=== PATIENT | female | born 1945 | race Hispanic/Latino ===

== ENCOUNTER → 2023-07-02 14:42 | Outpatient (REF) | payer MEDICARE, OTHER, SELFPAY | LOC: DHVS 14:42 | PROVIDERS: ATTENDING PHYSICIAN Physician Assistant; FAMILY PHYSICIAN Nurse Practitioner Adult Health | DX: I73.9 Peripheral vascular disease, unspecified (principal) | CPT/HCPCS: 93922; 93925 ==

== ENCOUNTER → 2023-12-24 09:52 | Outpatient (REF) | payer MEDICARE, OTHER, SELFPAY | LOC: RAD 09:52 | PROVIDERS: ATTENDING PHYSICIAN Surgery Vascular Surgery; FAMILY PHYSICIAN Nurse Practitioner Adult Health | DX: I73.9 Peripheral vascular disease, unspecified (principal) | CPT/HCPCS: 93922; 93925 ==

== ENCOUNTER → 2024-02-25 10:00 | Outpatient (REF) | payer MEDICARE, OTHER, SELFPAY | LOC: HWRAD 10:00 | PROVIDERS: ATTENDING PHYSICIAN Nurse Practitioner Family | DX: Z78.0 Asymptomatic menopausal state (principal) | CPT/HCPCS: 77080 ==

== ENCOUNTER → 2024-08-04 08:46 | Outpatient (REF) | payer MEDICARE, OTHER, SELFPAY | LOC: RAD 08:46 | PROVIDERS: ATTENDING PHYSICIAN Registered Nurse; FAMILY PHYSICIAN Nurse Practitioner Family | DX: I73.9 Peripheral vascular disease, unspecified (principal) | CPT/HCPCS: 93922; 93925 ==

== ENCOUNTER 2024-10-20 17:25 | Emergency (ER) | payer MEDICARE, OTHER, SELFPAY ==
[2024-10-20] VITALS (7 sets, daily range): BP systolic 140–224; BP diastolic 74–96; BMI 17.4
--- NOTE | 2024-10-20 18:39 | ED.GENMED ---
History of Present Illness
General
Chief Complaint: Abdominal Pain
Source: patient and family
Exam Limitations: none
Time Seen by Provider: 10/20/24 18:22
Nursing documentation reviewed up to this point in time: agreed with
History of Present Illness
History of Present Illness:
79-year-old female with a past medical history of mild dementia, hypertension, smoker who presents to the emergency room with her daughter for evaluation of abdominal pain; was referred to the ER for evaluation of abnormal CT. Patient reportedly
was out of town for a last week. On after eating some fried fish she began to complain of some abdominal pain and had some vomiting x 1 episode. She had some additional vomiting on Saturday x 2 episodes. She has complained of
continued abdominal pains since then and so when they returned home they took her to her primary care physician who ordered a CT scan. She had a CT scan today which apparently showed distended gallbladder as well as a fecal impaction that she was
sent to the ER to have further evaluation. Patient reports pain is in the epigastrium and radiates towards the left back. No clear triggering factor noted although it did apparently start after eating. No associated diarrhea; she has a history of
constipation per daughter. No fever noted. No urinary issues. No other acute complaints noted. She does have prior surgical history of appendectomy.
Past History
Past History
ED Past Medical History: HTN
ED Past Surgical History: None
Social History
Tobacco: Former smoker
Living: with family
Employment: Retired
Review of Systems
Review of Systems
All Other Systems: ROS reviewed and negative except as documented in HPI and ROS
Constitutional: Denies fever or chills
Respiratory: Denies trouble breathing
Cardiac: Denies chest pain
ABD/GI: Reports abdominal pain, nausea, vomiting and constipated; Denies diarrhea
: Denies dysuria, frequency or flank pain
Musculoskeletal: Denies neck pain
Neurological: Denies dizzy or headache
Phy Exam
Physical Exam
Physical Exam:
General: Awake, alert, mildly cachectic, not in acute distress
Head: Normocephalic, atraumatic
Eyes: Conjunctiva normal, sclera anicteric
Throat: Airway intact, handling secretions
Neck: Trachea midline, supple without meningismus
Lungs: Clear to auscultation bilaterally, no wheezing, rales, rhonchi
Heart: Regular rate and rhythm, no murmurs, gallops, or rubs appreciated
Abd: Soft, non distended, tender to palpation in the epigastrium; no tenderness in the right upper quadrant, negative Courtney sign
Back: No CVA tenderness
Neuro: No gross deficits
Skin: no rash in area of concern
Extremities: Warm well-perfused with no edema
Scores
Heart Failure Risk
Heart Failure Risk Score: Not Applicable
Heart Score for Chest Pain Patients
STEMI patient?: Not applicable
Withdrawal Assessment of Alcohol
Withdrawal Assessment Completed?: Not applicable
Course
Orders/Labs/Results
Orders:
Orders
10/20/24 18:24
US Abdomen Limited Urgent
Reason For Exam: abnormal CT; F/U GALLBLADDER, LUQ pain
10/20/24 18:35
Complete Blood Count/With Diff Urgent
10/20/24 18:46
0.9% Sodium Chloride 1000 ml [Nss] 1,000 ml IV BOLUS
10/20/24 19:19
Enema- Treatment ONCE
Type: Milk of Molasses
Morphine Sulfate 4 mg IV NOW STA
10/20/24 19:26
Comprehensive Metabolic Panel Urgent
Lipase Urgent
Abnormal Lab Results
10/20/24 10/20/24
18:35 19:26
WBC 14.5 H 10^3/uL
(4.8-10.8)
RBC 4.03 L 10^6/uL
(4.20-5.40)
Hgb 10.9 L g/dL
(12.0-16.0)
Hct 33.1 L %
(37.0-47.0)
MCHC 32.9 L g/dL
(33.0-37.0)
RDW 15.1 H %
(11.5-14.5)
Plt Count 681 H 10^3/uL
(130-400)
Absolute Neuts (auto) 10.5 H 10^3/uL
(1.4-6.5)
Absolute Monos (auto) 0.9 H 10^3/uL
(0.1-0.6)
Lymphocytes % 19.8 L %
(20.5-51.1)
Sodium 133 L mmol/L
(135-145)
Carbon Dioxide 21 L mmol/L
(22-30)
BUN 28 H mg/dl
(7-17)
Creatinine 1.1 H mg/dL
(0.6-1.0)
Glucose 109 H mg/dl
(70-99)
10/20/24 18:35
10/20/24 19:26
Vital Signs
Initial and Last Documented VS:
Initial Vital Signs
Temp Pulse Resp BP Pulse Ox
36.8 C 68 18 140/96 98
10/20/24 17:38 10/20/24 17:38 10/20/24 17:38 10/20/24 17:38 10/20/24 17:38
Last Documented Vital Signs
Temp Pulse Resp BP Pulse Ox
36.7 C 62 17 186/74 95
10/20/24 18:32 10/20/24 19:30 10/20/24 19:30 10/20/24 21:33 10/20/24 21:45
MDM/Problems Addressed
Differential Diagnosis Includes:
Cholecystitis, gastritis/PUD, constipation, pancreatitis
MDM/Problems Addressed:
79-year-old female presents for evaluation of abdominal pain with some nausea and vomiting as well as constipation�this has been ongoing since . Had an outpatient CT as well as lab work�reviewed labs which were done at 10 AM: She has a
leukocytosis with WBC 13.5. She has mild PRERNA with a creatinine of 1.4. Her LFTs are normal. CT report reviewed: Distended gallbladder which could be benign gallbladder hydrops but cannot exclude cholecystitis�recommended follow-up ultrasound.
She also has large amount of fecal material in the rectum concerning for fecal impaction. Will repeat labs to check trend. Check lipase. Provide some fluids. Check upper abdominal ultrasound. Enema for fecal impaction. Monitor closely reassess
after the above.
Repeat labs showed continued leukocytosis as well as elevated platelet count suspected might be some element of hemoconcentration especially given renal insufficiency noted on labs. Her creatinine is improving�patient was given fluids here. Her
abdominal ultrasound showed no signs of cholelithiasis or acute cholecystitis and certainly her exam seems inconsistent with cholecystitis as she has no tenderness in the right upper quadrant. Her tenderness is mostly left-sided and given stool
burden noted in the colon and rectum on CT I wonder if her symptoms are more likely related to fecal impaction and constipation. Enema is in progress and will reassess.
Patient did have bowel movement after enema. She reported some mild improvement still having some pain in the left lateral/upper abdomen. Minimally tender. Again, I suspect this could be constipation related although would also consider gastritis
or PUD. Low suspicion for surgical pathology based on exam and workup thus far. I had a long discussion with patient and daughter�offered admission for aggressive bowel regimen and continued monitoring but patient says she does not want stay in
the hospital. Plan to discharge on MiraLAX, advised bland diet, encourage p.o. intake. We spoke in detail about return precautions. Patient and daughter are comfortable with this. All questions answered.
*Radiology
Radiology exam reviewed: radiology read reviewed
*Pulse Oximetry
Patient hypoxic: no
*Critical Care Note
Total Time (30-74mins, 75-104mins- exclusive of procedures): Not Applicable
Data Reviewed
Review of Other/Old Records Reveals: Labs, Records and Radiology Studies
Source: patient and family
Patient Management
Social determinants of health affecting care: Strong social support
Escalation/DeEscalation of care consider admission/obs:
Offered admission but patient prefers to be discharged�shared decision making we will discharge with strict return precautions and outpatient PCP follow-up
ED Attending Note
-
Portions of this chart may have been created with voice recognition software.� Occasional wrong word or��sound alike� substitutions may have occurred due to the inherent limitations of voice recognition software.
Discharge Plan
Departure
Patient Disposition: Home (Routine Discharge)
Date of Disposition: 10/20/24
Time of Disposition: 22:08
Patient with high blood pressure during this ER visit?: Yes
Discharge Problem:
Abdominal pain, Fecal impaction, Constipation
Instructions: Constipation, Adult (DC), Abdominal Pain
Prescriptions:
New
polyethylene glycol 3350 [Miralax] 17 gram powder in packet
17 g PO BID Qty: 100 0RF
No Action
atorvastatin 80 MG tablet
80 mg PO QPM Qty: 30 0RF
clopidogrel 75 MG tablet
75 mg PO DAILY Qty: 30 0RF
aspirin 81 MG tablet,chewable
81 mg PO DAILY Qty: 30 0RF
sertraline 25 MG tablet
25 mg PO DAILY
metoprolol succinate 100 MG tablet extended release 24 hr
100 mg PO DAILY
amlodipine 2.5 MG tablet
2.5 mg PO DAILY
famotidine [Pepcid AC] 20 MG tablet
20 mg PO DAILY
Slow Fe
45 mg PO DAILY
docusate sodium [Stool Softener] 100 mg Capsule
100 mg PO MOWEFR
Referrals:
Nickolas Leonard MD [Family Provider, Family Practice] - Call in 1-3 days for appt
Activity Restrictions/Additional Instructions:
Thank you for visiting the Emergency Department at [facility].
1. Please schedule a follow up appointment as directed. Call first thing tomorrow morning to make an appointment.
2. If indicated, please take your medications as instructed and indicated on discharge paperwork.
3. If any of your symptoms do not improve, or persist, or become more severe within 6-12 hours, please return to the emergency department for further care.
4. Please return to the emergency department if you develop a headache, neck pain/stiffness, fever greater than 100.4F, chest pain, shortness of breath, persistent nausea, vomiting, slurred speech, difficulty walking, numbness/tingling, weakness,
signs of infection or any other symptoms that are worrisome to you.
Please call [phone] if you have any questions.
Interventions
Interventions:
*Risk Screen - Suicide Last Done: 10/20/24 17:38
*General Assessment Last Done: 10/20/24 18:33
*Neglect/Abuse Screening Last Done: 10/20/24 17:38
*ED- Fall Risk Assessment Last Done: 10/20/24 18:33
*ED COVID-19 Vaccine History Last Done: 10/20/24 18:33
NL-Qhbasp-Peemxatfub Assessment Last Done: 10/20/24 18:33
Discharge Date and Time
Print Language: CITIZEN OF [place]
[2024-10-20 19:04] LABS: % Basophils 0.4 % (0-2); % Eosinophils 1.1 % (0-6); % Immature Granulocytes 0.2 % (0-0.5); % Lymphocytes 19.8 % (20.5-51.1); % Monocytes 6.2 % (1.7-9.3); % Neutrophils 72.3 % (42.2-75.2); Absolute Basophils 0.1 10^3/uL (0-0.2); Absolute Eosinophils 0.2 10^3/uL (0-0.7); Absolute Lymphocytes 2.9 10^3/uL (1.2-3.4); Absolute Monocytes 0.9 10^3/uL (0.1-0.6); Absolute Neutrophils 10.5 10^3/uL (1.4-6.5); Hematocrit 33.1 % (37.0-47.0); Hemoglobin 10.9 g/dL (12.0-16.0); Mean Corp Hgb Conc. 32.9 g/dL (33.0-37.0); Mean Corpuscular Volume 82.1 fL (81.0-99.0); Nucleated Red Blood Cells % 0 %; Platelet Count 681 10^3/uL (130-400); Red Blood Cell Count 4.03 10^6/uL (4.20-5.40); Red Cell Dist. Width 15.1 % (11.5-14.5); White Blood Cell Count 14.5 10^3/uL (4.8-10.8)
[2024-10-20] MEDS: NSS 1000 IV (19:26)
[2024-10-20] MEDS: MORPHINE SULFATE 4 MG IV (19:28)
[2024-10-20 19:47] LABS: ALT (SGPT) 12 U/L (0-35); AST (SGOT) 19 U/L (14-36); Albumin 3.9 g/dl (3.5-5.0); Alkaline Phosphatase 70 U/L (38-126); Blood Urea Nitrogen 28 mg/dl (7-17); Calcium 9.5 mg/dl (8.4-10.2); Carbon Dioxide 21 mmol/L (22-30); Chloride 104 mmol/L (98-107); Estimated Creatinine Clearance 25 ml/min; Glucose 109 mg/dl (70-99); Lipase 180 U/L (23-300); Potassium 3.9 mmol/L (3.5-5.1); Sodium 133 mmol/L (135-145); Total Bilirubin 0.4 mg/dl (0.2-1.3); Total Protein 6.7 g/dl (6.3-8.2); eGFR 51.11
== END 2024-10-20 22:49 | disposition home or self-care (01) ==
LOC: EMR 17:25
PROVIDERS: EMERGENCY PHYSICIAN Emergency Medicine; FAMILY PHYSICIAN Family Medicine
DX: R10.9 Unspecified abdominal pain (principal); K56.41 Fecal impaction; N17.9 Acute kidney failure, unspecified; F03.A0 Unspecified dementia, mild, without behavioral disturbance, psychotic disturbance, mood disturbance, and anxiety; I10 Essential (primary) hypertension; Z87.891 Personal history of nicotine dependence; Z90.49 Acquired absence of other specified parts of digestive tract
CPT/HCPCS: 99284; 96374; 96361; 36415; 74177; 76705; 80053; 83690; 85025; 93005; Q9967

== ENCOUNTER 2024-10-22 20:11 | Inpatient (IN) | payer MEDICARE, OTHER, SELFPAY ==
[2024-10-22] VITALS (7 sets, daily range): BP systolic 107–134; BP diastolic 42–94; PULSE 58–75; BMI 17.1
--- NOTE | 2024-10-22 18:37 | ED.GENMED ---
History of Present Illness
General
Chief Complaint: Rectal Bleeding
Source: patient, records and family
Exam Limitations: none
Time Seen by Provider: 10/22/24 18:35
Nursing documentation reviewed up to this point in time: agreed with
History of Present Illness
History of Present Illness:
79-year-old female with history of mild dementia, HTN, smoker is here for heme positive stools from PCP office, low BP in the office, 2 lb wt loss past 2 days.
Hypotensive 70/s BP x 3 documented on office note 88/52, 76/40, 82/50
Evaluated here for abdominal pain 2 days ago, found to be constipated and given enemas with good results. DC'd on Miralax which daughter has been giving her daily. No BM since
Pt states pain is (points to epigastric area).
Past History
Past History
ED Past Medical History: HTN, Psychiatric (Depression) and Other (Mild dementia)
ED Past Surgical History: Appendectomy
Social History
Tobacco: Former smoker
Living: with family
Employment: Retired
Review of Systems
Review of Systems
Allergies reviewed?: Yes
All Other Systems: ROS reviewed and negative except as documented in HPI and ROS
Constitutional: Reports fatigue; Denies fever
Respiratory: Denies trouble breathing
Cardiac: Denies chest pain or syncope
ABD/GI: Reports abdominal pain, black stools and anorexia; Denies nausea, vomiting or diarrhea
: Denies dysuria
Musculoskeletal: Denies edema
Skin: Reports no symptoms
Neurological: Denies dizzy or headache
Phy Exam
Physical Exam
Physical Exam:
GENERAL: No acute distress. Elderly and frail
CONSTITUTIONAL: Afebrile.
EYES: clear, conjunctivae normal
ENMT: moist mucus membranes, Pharynx nl
RESPIRATORY: Regular respirations, nonlabored, lungs clear.
CARDIOVASCULAR: Regular rate and rhythm, no murmurs, no rubs.
GI: Soft, nontender, normal BS
MUSCULOSKELETAL: Moves with ease. Well perfused.
SKIN: Warm, dry, grayish tone
PSYCH: Normal mood and affect. Well kept, interactive and appropriate
NEUROLOGIC: Awake, alert and oriented. No focal neurological deficits
Course
Orders/Labs/Results
Orders:
Orders
10/22/24 18:37
Type And Crossmatch [Type+Screen] Urgent
Basic Metabolic Panel Urgent
Complete Blood Count/With Diff Urgent
10/22/24 18:50
IV Insert/Care/Rem.- Treatment PRN
Pantoprazole [Protonix IV] 80 mg IV NOW STA
10/22/24 19:06
0.9% Sodium Chloride 500 ml [Nss] 500 ml IV BOLUS
Abnormal Lab Results
10/22/24
18:37
WBC 15.1 H 10^3/uL
(4.8-10.8)
RBC 3.59 L 10^6/uL
(4.20-5.40)
Hgb 10.0 L g/dL
(12.0-16.0)
Hct 29.6 L %
(37.0-47.0)
RDW 15.3 H %
(11.5-14.5)
Plt Count 608 H 10^3/uL
(130-400)
Abs Immat Gran (auto) 0.1 H 10^3/uL
(0-0.05)
Absolute Neuts (auto) 10.9 H 10^3/uL
(1.4-6.5)
Absolute Monos (auto) 1.0 H 10^3/uL
(0.1-0.6)
Lymphocytes % 19.3 L %
(20.5-51.1)
Chloride 108 H mmol/L
(98-107)
Carbon Dioxide 19 L mmol/L
(22-30)
BUN 37 H mg/dl
(7-17)
Creatinine 1.4 H mg/dL
(0.6-1.0)
Glucose 119 H mg/dl
(70-99)
Calcium 10.6 H mg/dl
(8.4-10.2)
10/22/24 18:37
10/22/24 18:37
Vital Signs
Initial and Last Documented VS:
Initial Vital Signs
Temp Pulse Resp BP Pulse Ox
98.4 F 69 16 122/94 99
10/22/24 17:56 10/22/24 17:56 10/22/24 17:56 10/22/24 17:56 10/22/24 17:56
Last Documented Vital Signs
Temp Pulse Resp BP Pulse Ox
98.4 F 69 20 134/62 99
10/22/24 17:56 10/22/24 17:56 10/22/24 18:39 10/22/24 18:35 10/22/24 17:56
MDM/Problems Addressed
Differential Diagnosis Includes:
GI bleed
MDM/Problems Addressed:
79-year-old female with history of mild dementia, HTN, smoker is here for heme positive stools from PCP office, low BP in the office, 2 lb wt loss past 2 days.
Hypotensive 70/s BP x 3 documented on office note 88/52, 76/40, 82/50
Evaluated here for abdominal pain 2 days ago, found to be constipated and given enemas with good results. DC'd on Miralax which daughter has been giving her daily. No BM since
Pt states pain is (points to epigastric area).
Patient is in no significant discomfort. Do not suspect mesenteric ischemia. Abdomen is benign save for mild discomfort subxiphoid in the epigastric area.
Rectal exam reveals black stool hematest positive.
7:15 p.m.
Hemoglobin 10.0 down from 10.9 two days ago
WBC 15.1
Stable
Hospitalist notified of admission.
Chronic conditions affecting care: HTN
*Critical Care Note
Total Time (30-74mins, 75-104mins- exclusive of procedures): Not Applicable
ED Attending Note
-
Portions of this chart may have been created with voice recognition software.� Occasional wrong word or��sound alike� substitutions may have occurred due to the inherent limitations of voice recognition software.
Discharge Plan
Departure
Patient Disposition: Admit
Date of Disposition: 10/22/24
Time of Disposition: 18:55
Admit to: Med/Surg
Presentation/result/management discussed w/ accepting MD/DO: Hospitalist
Condition: Fair
Discharge Problem:
GI bleed
Prescriptions:
No Action
atorvastatin 80 MG tablet
80 mg PO QPM Qty: 30 0RF
clopidogrel 75 MG tablet
75 mg PO DAILY Qty: 30 0RF
aspirin 81 MG tablet,chewable
81 mg PO DAILY Qty: 30 0RF
sertraline 25 MG tablet
25 mg PO DAILY
metoprolol succinate 100 MG tablet extended release 24 hr
100 mg PO DAILY
amlodipine 2.5 MG tablet
2.5 mg PO DAILY
famotidine [Pepcid AC] 20 MG tablet
20 mg PO DAILY
Slow Fe
45 mg PO DAILY
docusate sodium [Stool Softener] 100 mg Capsule
100 mg PO MOWEFR
polyethylene glycol 3350 [Miralax] 17 gram powder in packet
17 g PO BID Qty: 100 0RF
Referrals:
Matty Corona PA-C [Family Provider]
Interventions
Interventions:
*Risk Screen - Suicide Last Done: 10/22/24 17:56
*General Assessment Last Done: 10/22/24 17:56
*Neglect/Abuse Screening Last Done: 10/22/24 17:56
SE-Kfmlhx-Upbopqruue Assessment Last Done: 10/22/24 18:39
ED- Cardiac Assessment Last Done: 10/22/24 18:39
ED- Pulmonary Assessment Last Done: 10/22/24 18:39
Discharge Date and Time
Print Language: [place]
[2024-10-22 18:54] LABS: % Basophils 0.4 % (0-2); % Eosinophils 1.4 % (0-6); % Immature Granulocytes 0.4 % (0-0.5); % Lymphocytes 19.3 % (20.5-51.1); % Monocytes 6.4 % (1.7-9.3); % Neutrophils 72.1 % (42.2-75.2); Absolute Basophils 0.1 10^3/uL (0-0.2); Absolute Eosinophils 0.2 10^3/uL (0-0.7); Absolute Immature Granulocytes 0.1 10^3/uL (0-0.05); Absolute Lymphocytes 2.9 10^3/uL (1.2-3.4); Absolute Neutrophils 10.9 10^3/uL (1.4-6.5); Hematocrit 29.6 % (37.0-47.0); Mean Corp Hgb Conc. 33.8 g/dL (33.0-37.0); Mean Corpuscular Hgb 27.9 pg (27.0-31.0); Mean Corpuscular Volume 82.5 fL (81.0-99.0); Mean Platelet Volume 9.9 fL (7.4-10.4); Nucleated Red Blood Cells % 0 %; Platelet Count 608 10^3/uL (130-400); Red Blood Cell Count 3.59 10^6/uL (4.20-5.40); Red Cell Dist. Width 15.3 % (11.5-14.5); White Blood Cell Count 15.1 10^3/uL (4.8-10.8)
[2024-10-22 19:07] LABS: Blood Urea Nitrogen 37 mg/dl (7-17); Calcium 10.6 mg/dl (8.4-10.2); Carbon Dioxide 19 mmol/L (22-30); Chloride 108 mmol/L (98-107); Glucose 119 mg/dl (70-99); Sodium 137 mmol/L (135-145); eGFR 38.27
--- NOTE | 2024-10-22 19:18 | HPS.HSE ---
Family Physician
-
Family Physician: WALLY ENRIQUEZ PA-C
Chief Complaint
-
epigastric pain
History of Present Illness
79-year-old female with history of mild dementia, HTN, smoker, CVA presented to us with epigastric pain since Saturday. She vomited once on Saturday. She has not been eating or drinking for the past few days. Patient was evaluated here on Saturday.
CT obtained and was noted to be in constipation. Patient was sent home on MiraLAX. She had a small BM the following day. No bowel movement since then. Due to the persistent epigastric pain, which is more towards her left side she was evaluated
by PCP today. she lost 2lbs in two days. Her stool was heme positive at PCP office. Patient denied any fever, chills, chest pain, short of breath. Patient denied headache, dizzy or syncope patient denied abdominal pain, nausea, vomiting or
diarrhea. Patient denied dysuria hematuria.
Rectal exam reveals black stool heme test positive. Patient received a dose of Protonix, normal saline in the ER. Admitted for further management
Medical History
Past Medical History
Past Medical History: Reports Other
Additional Past Medical History:
Peripheral artery disease
CVA
Depression
Past Surgical History: Reports Other
Additional Past Surgical History:
Appendectomy
Cataract
Social History
Tobacco: Smoker (1 cigarettes daily)
Alcohol: None
Drug: None
Living: With Family
Family History
Family History: Not pertinent
Allergies / Home Medications
Allergies reflects when Allergies were last updated in [facility].
Home Medications with original date entered in [facility]
Allergy/Medication List:
Allergies
Allergy/AdvReac Type Severity Reaction Status Date / Time
No Known Allergies Allergy Verified 10/22/24 17:59
Home Medications
aspirin 81 mg chewable tablet 81 mg PO DAILY ##30 08/31/18
atorvastatin 80 mg tablet 80 mg PO QPM ##30 08/31/18
clopidogrel 75 mg tablet 75 mg PO DAILY ##30 08/31/18
sertraline 25 mg tablet 25 mg PO DAILY 12/02/18
Slow Fe 45 mg PO DAILY 05/27/19
amlodipine 2.5 mg tablet 2.5 mg PO DAILY 05/27/19
famotidine 20 mg tablet (Pepcid AC) 20 mg PO DAILY 05/27/19
metoprolol succinate 100 mg tablet,extended release 24 hr 100 mg PO DAILY 05/27/19
docusate sodium 100 mg capsule (Stool Softener) 100 mg PO MOWEFR 12/28/22
polyethylene glycol 3350 17 gram oral powder packet (Miralax) 17 g PO BID #100 ea 10/20/24
Review of Systems
-
Constitutional: Reports No Symptoms
EENT: Reports No Symptoms
Respiratory: Reports No Symptoms
Cardiac: Reports No Symptoms
Abdomen/GI: Reports Abdominal Pain (Epigastric), Nausea and Vomiting
: Reports No Symptoms
Musculoskeletal: Reports No Symptoms
Skin: Reports No Symptoms
Neurological: Reports No Symptoms
Endocrine: Reports No Symptoms
Hematologic/Lymphatic: Reports No Symptoms
Psych: Reports No Symptoms
Physical Exam
Vital Signs
Vital Signs
Temp Pulse Resp BP Pulse Ox
98.4 F 69 20 134/62 99
10/22/24 17:56 10/22/24 17:56 10/22/24 18:39 10/22/24 18:35 10/22/24 17:56
Physical Exam
General: Well Developed, Well Nourished and No Apparent Distress
HEENT: NormoCephalic, Moist mucous membranes and Atraumatic
Respiratory: Clear
Cardiac: S1/S2 and Regular Rhythm; No Murmur or Rub
GI: Soft, Non Distended, Normal Bowel Sounds and Tender; No Organomegaly
Rectal: Deferred by Provider
Musculoskeletal: No Clubbing, No Cyanosis and No Edema
Skin: No Rash
Neuro: AO x 3 and Nonfocal/grossly intact
Psych: Calm
Laboratory Results
-
10/22/24 18:37
10/22/24 18:37
Laboratory Results
Total Bilirubin Cancelled 10/22/24 18:37
AST Cancelled 10/22/24 18:37
ALT Cancelled 10/22/24 18:37
Alkaline Phosphatase Cancelled 10/22/24 18:37
Data Reviewed
-
CT Scan: Report Reviewed by me
Ultrasound: Report Reviewed by me
Lab Data: Labs Reviewed by me
Impression/Plan
-
# GI bleed
# Anemia of chronic disease
- Hemoglobin 10.0
- Continue to trend hemoglobin
- Transfuse if hemoglobin less than 7
- Keep patient n.p.o.
- Fluids continued for hydration
- GI consulted
- CT abdomen pelvis with impression of Distended gallbladder. This may be benign gallbladder hydrops. Acute cholecystitis cannot be excluded. This would better be evaluated by abdominal ultrasoundLarge amount of fecal material in the region of
rectum concerning for fecal impaction.Diverticulosis.Numerous bilateral renal cysts suggesting polycystic kidney disease. Stable.Air in the uterus. Stable. Etiology unknown but likely insignificant considering the long-term stability.
-abdomen US with No sonographic evidence for cholelithiasis or acute cholecystitis.
# Leukocytosis likely stress reaction
- WBCs 15.1, patient is afebrile
- Continue to monitor
# Chronic thrombocytosis
- Platelets 608
- Continue to monitor
# Acute kidney injury likely dehydration
- Creatinine 1.4
- Normal saline continued
- BMP in a.m.
# History of CVA
- Hold Plavix and aspirin
# GERD
- IV PPI
# Depression
- Sertraline continue
# Hyperlipidemia
- Statin continued
# Essential hypertension
- Metoprolol continued
- Norvasc continue
# DVT prophylaxis
- SCD
#CODE STATUS
- Full code
#
[2024-10-22] MEDS: NSS 500 IV (19:28)
[2024-10-22] MEDS: PROTONIX IV 80 MG IV (19:28)
--- NOTE | 2024-10-22 20:16 | W.PN.UPDATE ---
Update Note
Progress Note Update
Patient seen in conjunction with [employer]. I agree depends on surgical. I concur with the assessment plan unless stated otherwise.
This is a 79-year-old female with past medical history of CVA on dual antiplatelet therapy, hypertension and hyperlipidemia presenting to the emergency department from clinic with concern for GI bleed.
Per patient she was seen in the emergency department a few days ago with epigastric discomfort radiating to the left upper quadrant. At the time she was diagnosed with constipation and started on laxatives. CT scan was unremarkable. Labs were
stable at that time. Patient has been unable to tolerate any oral intake since onset of epigastric discomfort. She is not aware of any melena or hematochezia. Because she has not been having bowel movements. She did have bowel movements status
post laxative use but for only a small amount and was nonbloody. Patient self denies history of past GI bleed. She is not taking any additional NSAIDs. She is not on any blood thinners. She denies feeling dizzy or lightheaded. Was seen in PMD
clinic today and a rectal exam shows Hemoccult positive rectal
Arrival emergency department she was hemodynamic stable with a blood pressure of 134/60 and pulse of 65 satting 96% on room air.
Hemoglobin was 10 which is similar to prior, platelets normal. Electrolytes BUN/creatinine fairly stable.
She is well-appearing on exam nontoxic with epigastric tenderness to palpation.
Assessment and plan
Suspect dyspepsia versus peptic ulcer disease versus gastritis.
- Admit to telemetry
- N.p.o. for now
- PPI IV twice daily
- Type and screen, trend H&H every 8
- Orthostatic vital signs
- Holding aspirin Plavix
- Continue antihypertensives as tolerated
- Maintenance fluids
- GI consultation
DVT prophylaxis SCDs
CODE STATUS�full code
--- NOTE | 2024-10-22 21:08 | PTCARENOTE ---
Pt oriented to room and call maria. Pt oriented to room and call maria.
[2024-10-22] MEDS: NSS 1000 IV (21:52)
[2024-10-22] MEDS: MORPHINE SULFATE 2 MG IV (22:21)
--- NOTE | 2024-10-22 22:36 | VATNOTE ---
NOTED ORDER FOR TWO LARGE BORE IVS. PT CURRENTLY STABLE AND REQUIRES ONLY I IV ACCESS AT THIS TIME.
[2024-10-23] VITALS (47 sets, daily range): BP systolic 62–185; BP diastolic 41–96; PULSE 60–87; BMI 17.1
[2024-10-23 00:24] LABS: Hematocrit 21.2 % (37.0-47.0); Hemoglobin 7.2 g/dL (12.0-16.0)
[2024-10-23 00:26] LABS: ALT (SGPT) < 10 U/L (0-35); AST (SGOT) 14 U/L (14-36); Albumin 2.7 g/dl (3.5-5.0); Alkaline Phosphatase 50 U/L (38-126); Direct Bilirubin 0.2 mg/dl (0.0-0.4); Lipase 202 U/L (23-300); Total Bilirubin 0.2 mg/dl (0.2-1.3); Total Protein 4.9 g/dl (6.3-8.2)
--- NOTE | 2024-10-23 00:42 | PTCARENOTE ---
Lab notified this RN that pt's Hgb 7.2, down from 10.0 at 1837. Etienne JACKSON made aware.
--- NOTE | 2024-10-23 06:59 | CON.GI ---
Addendum entered and electronically signed by Shruthi Steve MD 10/23/24 17:22:
I saw and examined the patient.
The API DEVELOPER or PA's note was reviewed and I agree with the note.
Comment: 79-year-old Tanzanian-speaking female with history of peripheral artery disease on Plavix, previous 2 pack smoker and now 1 cigarette today, history of CVA brought in by her daughter for epigastric pain since last week and black stool that
was noted at PCPs office. She was in the emergency room a few days ago for vomiting and epigastric pain, mild leukocytosis noted, CT scan of the abdomen pelvis showed distended gallbladder, also large amount of fecal material noted in the rectum.
She was given an enema, abdominal ultrasound showed normal bowel bladder and she was discharged home. She did take MiraLAX without much bowel movements at home.
Hemoglobin 10/20/2024 was 10.9, today it was noted to be 6.3 with black stool. BUN was also elevated at 44.
Currently reports discomfort in the upper abdomen, no nausea or vomiting. She does have history of anemia, takes iron 3 times a week with Colace. Also was taking H2 [place]. No NSAID use. No significant constipation on iron. No previous
endoscopy or colonoscopy.
- melena, currently hemodynamically stable
Upper endoscopy done today, initially under MAC, then changed to general anesthesia after large amounts of blood noted in the stomach.
About 1 L of blood clots removed.
Large gastric body greater curvature ulcer with clots noted, epinephrine, cautery and 3 hemoclips. Given the base of the ulcer was scarred, hemoclips could not be placed to secure the ulcer margins.
Continue PPI drip, monitor in the ICU
Would keep patient intubated for now.
Monitor H&H and transfuse if needed.
Repeat EGD in a.m. to evaluate ulcer again.
Family updated.
Original Note:
Consultation
-
Date/Time Consultation Requested: 10/22/24 2100
Date/Time Consultation Performed: 10/23/24 0930
Requesting Provider: MANUEL Bravo
Performing Provider: MANUEL [place], Shruthi Steve MD
Reason for Consultation: GI bleed
Medical History
Chief Complaint / HPI
History of Present Illness:
Pt is a 79yo Tanzanian speaking female with hx CVA, mild dementia, depression, GERD with chronic pepcid use, PAD with prior arteriogram on chronic ASA and Plavix , thrombocytosis, tobacco abuse, prior appe with onset of epigastric pain since last
week. She was seen in ER 10/20 with initial vomiting with symptoms. She has a leukocytosis with WBC 13.5, mild PRERNA with a creatinine of 1.4.with normal LFT's. Ct completed prior to admission byut PCP noted with Distended gallbladder which could
be benign gallbladder hydrops but cannot exclude cholecystitis�recommended follow-up ultrasound. She also has large amount of fecal material in the rectum concerning for fecal impaction. air in uterus. Follow up limited US with No sonographic
evidence for cholelithiasis or acute cholecystitis. She was given enema with improvement and discharged. She continued with abdominal pain and was referred back to ER. She has had wt loss and noted with black heme + stool and on return hbg drop
for initial 10 to 6.3 with concern for GI bleed.
In review with daughter pain began about with pain 1 week ago. She denies any NSAID use. He was not noted with black stools til this admission. She has had about 10 + lb wt loss in 2 years and vomiting clear fluid last weeks with prior
constipation and some continued loose black stools overnight. but denies dysphagia, GERD, hematuria, or vaginal bleeding. . No hx EGD or colonoscopy in past. Pt with hx prior anemia with hbg 10- 11 range on chronic iron prior to admission.
Past Medical History
Past Medical History: CVA, GERD, Psychiatric (depression, dementia ) and Other (PAD, tobacco abuse, thrombocytosis )
Past Surgical History: Appendectomy and Other (cataracts, arterogram x 3 )
Social History
Tobacco: Smoker (1 cig per day prior 2 PPD )
Alcohol: None
Drug: None
Living: With Family (daughter )
Employment: Retired
Family History
Family History: Other (sister with RESIDENT CARE COORDINATOR cancer, aunt with breast CA)
Allergies / Home Medications
Allergy/AdvReac Type Severity Reaction Status Date / Time
No Known Allergies Allergy Verified 10/22/24 17:59
�Medication �Instructions �Recorded
aspirin 81 mg chewable tablet 81 mg PO DAILY ##30 08/31/18
clopidogrel 75 mg tablet 75 mg PO DAILY ##30 08/31/18
sertraline 25 mg tablet 25 mg PO DAILY 12/02/18
metoprolol succinate 100 mg 50 mg PO DAILY 05/27/19
tablet,extended release 24 hr
docusate sodium 100 mg capsule 100 mg PO MOWEFR 12/28/22
(Stool Softener)
polyethylene glycol 3350 17 gram 17 g PO BID #100 ea 10/20/24
oral powder packet (Miralax)
alendronate 70 mg tablet (Fosamax) 70 mg PO QWEEK 10/22/24
amlodipine 5 mg tablet 5 mg PO DAILY 10/22/24
atorvastatin 80 mg tablet 80 mg PO DAILY 10/22/24
cholecalciferol (vitamin D3) 25 25 mcg PO DAILY 10/22/24
mcg (1,000 unit) capsule (Vitamin
D3)
famotidine 10 mg tablet (Pepcid AC) 10 mg PO DAILY 10/22/24
ferrous sulfate 325 mg (65 mg 325 mg PO MOWEFR 10/22/24
iron) tablet (iron)
ondansetron 4 mg disintegrating 4 mg PO Q8H PRN nausea 10/22/24
tablet
Review of Systems
-
Unable to obtain full review of systems at this time due to: Dementia
History Source: Patient and Family
Constitutional: Reports Weight Loss and Fatigue
EENT: Reports No Symptoms
Respiratory: Reports No Symptoms
Cardiac: Reports No Symptoms
Abdomen/GI: Reports Abdominal Pain, Nausea, Vomiting, Diarrhea, Constipated and Black Stools
: Reports No Symptoms
Musculoskeletal: Reports No Symptoms
Neurological: Reports Weakness
Endocrine: Reports No Symptoms
Hematologic/Lymphatic: Reports Bleeding
Vital Signs
Temp Pulse Resp BP Pulse Ox
98.3 F 60 16 114/50 97
10/23/24 03:49 10/23/24 03:49 10/23/24 03:49 10/23/24 03:49 10/23/24 03:49
Physical Exam
Exam
General: Other (pale appearing )
HEENT: Normocephalic and Anicteric
Respiratory: Clear
Cardiac: Regular Rhythm
GI: Soft, Non Distended and Tender (epigastric pain )
Musculoskeletal: No Clubbing and No Cyanosis
Skin: Warm and Dry
Neuro: Awake, Alert and Other (forgetful, kazakh speaking - family assist with language barrier)
Psych: Calm
Results
WBC 15.1 10^3/uL (4.8-10.8) H 10/22/24 18:37
Hgb 7.2 g/dL (12.0-16.0) L D 10/22/24 23:38
Hct 21.2 % (37.0-47.0) L 10/22/24 23:38
MCV 82.5 fL (81.0-99.0) 10/22/24 18:37
Plt Count 608 10^3/uL (130-400) H 10/22/24 18:37
Absolute Neuts (auto) 10.9 10^3/uL (1.4-6.5) H 10/22/24 18:37
Sodium 137 mmol/L (135-145) 10/22/24 18:37
Potassium mmol/L (3.5-5.1) 10/22/24 18:37
Chloride 108 mmol/L (98-107) H 10/22/24 18:37
Carbon Dioxide 19 mmol/L (22-30) L 10/22/24 18:37
BUN 37 mg/dl (7-17) H 10/22/24 18:37
Creatinine 1.4 mg/dL (0.6-1.0) H 10/22/24 18:37
Calcium 10.6 mg/dl (8.4-10.2) H 10/22/24 18:37
Total Bilirubin 0.2 mg/dl (0.2-1.3) 10/22/24 23:38
AST 14 U/L (14-36) 10/22/24 23:38
ALT < 10 U/L (0-35) 10/22/24 23:38
Alkaline Phosphatase 50 U/L (38-126) 10/22/24 23:38
Lipase 202 U/L (23-300) 10/22/24 23:38
Diagnostic Image Results:
10/20/24 CT Abd/pelvis W Iv Cont
Distended gallbladder. This may be benign gallbladder hydrops. Acute cholecystitis cannot be excluded. This would better be evaluated by abdominal ultrasound
Large amount of fecal material in the region of rectum concerning for fecal impaction.
Diverticulosis.
Numerous bilateral renal cysts suggesting polycystic kidney disease. Stable
Air in the uterus. Stable. Etiology unknown but likely insignificant considering the long-term stability..
/24 US Abdomen Limited
1. No sonographic evidence for cholelithiasis or acute cholecystitis.
Prior GI Procedures:
EGD: none
Colonoscopy: none
Assessment / Plan
-
Pt is a 79yo [place]anian speaking female with hx CVA, mild dementia, depression, GERD with chronic pepcid use, PAD with prior arteriogram on chronic ASA and Plavix , thrombocytosis, tobacco abuse, prior appe with onset of epigastric pain since last
week. She was seen in ER 10/20 with initial vomiting with symptoms. She has a leukocytosis with WBC 13.5, mild PRERNA with a creatinine of 1.4.with normal LFT's. Ct completed prior to admission byut PCP noted with Distended gallbladder which could
be benign gallbladder hydrops but cannot exclude cholecystitis�recommended follow-up ultrasound. She also has large amount of fecal material in the rectum concerning for fecal impaction. air in uterus. Follow up limited US with No sonographic
evidence for cholelithiasis or acute cholecystitis. She was given enema with improvement and discharged. She continued with abdominal pain and was referred back to ER. She has had wt loss and noted with black heme + stool and on return hbg drop
for initial 10 to 6.3 with concern for GI bleed. She has had about 10 + lb wt loss in 2 years and vomiting clear fluid last weeks with prior constipation and some continued loose black stools after admission. No hx EGD or colonoscopy in past. Pt
with hx prior anemia with hbg 10- 11 range on chronic iron prior to admission.
-melena
-anemia with drop in hbg after admission
-epigastric pain
-recent constipation
-CT with distention- benign GB hydrops f/u US without cholelithiasis or acute cholecystitis
-PAD on chronic ASA and Plavix
-leukocytosis
-PRERNA
-GERD with chronic Pepcid use
other med problems:
-thrombocytosis
-mild dementia
-depression
-hx CVA
-appe
-tobacco abuse
PLAN:
etiology of epigastric pain with melena and now drop in hbg related to UGI bleeding with some rise in BUN to 30 range--PUD, ectasia, mass vs other
noted further drop in hbg with black stools after admission
agree with transfusion
trend hbg
NPO
Plavix hold (last dose 6/12 AM)- ok to cont ASA if needed
cont PPI BID
add iron studies. b12 and folate
reviewed with daughter who will provide consent options of observation with transfusion, EGD today after transfusion vs await plavix wash out
with significant drop in hbg she is agreeable to proceed today with EGD with risk including and not limited to of bleeding, infection, perforation, reaction to medication
reviewed with patient and daughter bedrest for now with bleeding then with assist as risk for falls
add miralax PRN with recent constipation
-
-
Thank you for consultation and allowing me to participate in the patient's care. Please call the managing consultant GI physician during the after hours with any questions or concerns.
[2024-10-23] MEDS: MORPHINE SULFATE 2 MG IV (07:48)
[2024-10-23] MEDS: NSS (PRESERVATIVE FREE) 10 ML IV (07:51)
[2024-10-23] MEDS: PROTONIX IV 40 MG IV (07:51)
[2024-10-23] MEDS: ZOLOFT 25 MG PO (07:58)
[2024-10-23] MEDS: NORVASC 5 MG PO (07:58)
[2024-10-23] MEDS: TOPROL XL 50 MG PO (07:58)
[2024-10-23 08:54] LABS: Hematocrit 18.9 % (37.0-47.0); Hemoglobin 6.3 g/dL (12.0-16.0); Mean Corp Hgb Conc. 33.3 g/dL (33.0-37.0); Mean Platelet Volume 10.1 fL (7.4-10.4); Platelet Count 432 10^3/uL (130-400); Red Blood Cell Count 2.25 10^6/uL (4.20-5.40); Red Cell Dist. Width 15.4 % (11.5-14.5); White Blood Cell Count 9.9 10^3/uL (4.8-10.8)
[2024-10-23 08:57] LABS: Blood Urea Nitrogen 44 mg/dl (7-17); Calcium 8.5 mg/dl (8.4-10.2); Carbon Dioxide 17 mmol/L (22-30); Chloride 116 mmol/L (98-107); Estimated Creatinine Clearance 22 ml/min; Glucose 99 mg/dl (70-99); Iron 39 ug/dl (37-170); Potassium 4.3 mmol/L (3.5-5.1); Sodium 137 mmol/L (135-145); eGFR 46.05
[2024-10-23 09:05] LABS: Percent Saturation 17 % (20-50); Total Iron Binding Capacity 227 ug/dl (265-497)
--- NOTE | 2024-10-23 12:14 | W.PN.HOSP.TC ---
Today's Communication/Plan
-
EGD
Blood transfusion
Assessment / Plan
Assessment / Plan
79-year-old with epigastric pain since Saturday. Vomited once on Saturday has not been able to eat or drink much for the past few days. Patient was evaluated in the ER and was discharged with MiraLAX as she was found to have constipation. She also
had heme positive stools in PCP office as well as in the ER
10/20/2024-ultrasound of the abdomen-no evidence of cholelithiasis or acute cholecystitis
CAT scan of the abdomen and pelvis-10/20/2024-distended gallbladder. May be gallbladder hydrops. Acute cholecystitis cannot be excluded. Large amount of fecal material in the rectum concerning for fecal impaction. Diverticulosis, numerous
bilateral renal cysts suggesting polycystic kidney disease-stable. Air in the uterus stable etiology unknown but likely insignificant considering assisted stability
CVS: S1-S2 normal
Chest: CTA B/L
Abdomen: Soft, NT / Bowel sounds present
Extremities: No edema
# Epigastric pain/anemia/heme positive stools/melena
Follow hemoglobin
Continue to trend hemoglobin
Hold Plavix
Restart ASA
Continue PPI twice daily
N.p.o. with IV fluids
GI evaluation
For EGD today.
# PRERNA-likely secondary to dehydration.
Continue IV fluids and follow creatinine
# Acute on chronic anemia secondary to acute blood loss and iron deficiency
Transfused 1 unit of blood. Give one more unit.
Iron supplementation
# Leukocytosis-Resolved.
# Hypertension-continue metoprolol but reduce to 25 mg daily. Hold Norvasc
# History of CVA-hold Plavix. Restart ASA
# Depression-continue sertraline
# Hyperlipidemia-continue statin
# Cognitive impairment
# Diverticulosis
# History of osteoporosis on Fosamax as outpatient
# Chronic thrombocytosis
# Hypoalbuminemia
# Smoker-cessation counseling
# DVT prophylaxis-SCDs
# Full code
D/W RN
D/W GI
D/W Daughter at bed side
Part of this note was created using voice recognition system. Occasional wrong word or��sound alike� substitutions may have inadvertently occurred due to the inherent limitations of voice recognition software. If noted kindly bring it to my
attention for correction.
Anticipated Discharge: 24 - 48 hours
Subjective/Interval History
-
Date of Service: October 23, 2024
Objective Data
-
Labs:
Laboratory Results
10/22/24 10/22/24 10/23/24
18:37 23:38 07:45
WBC 9.9
Hgb 7.2 L D 6.3 L*
Hct 21.2 L 18.9 L*
Plt Count 432 H D
Sodium 137 137
Potassium 4.3
Chloride 108 H 116 H
Carbon Dioxide 19 L 17 L
BUN 37 H 44 H
Creatinine 1.4 H 1.2 H
Glucose 119 H 99
Calcium 10.6 H 8.5 D
Total Bilirubin Cancelled 0.2
AST Cancelled 14
ALT Cancelled < 10
Alkaline Phosphatase Cancelled 50
10/23/24 10/23/24 10/23/24
12:30 14:00 22:00
WBC
Hgb Cancelled Pending Pending
Hct Cancelled Pending Pending
Plt Count
Sodium
Potassium
Chloride
Carbon Dioxide
BUN
Creatinine
Glucose
Calcium
Total Bilirubin
AST
ALT
Alkaline Phosphatase
Vital Signs:
Vital Signs
Temp Pulse Resp BP Pulse Ox
98.5 F 68 16 117/43 98
10/23/24 10:45 10/23/24 10:45 10/23/24 10:45 10/23/24 10:45 10/23/24 07:00
I&O
10/22/24 10/23/24 10/24/24
06:59 06:59 06:59
Intake Total 720 / 720 0 / 0
Balance 720 / 720 0 / 0
--- NOTE | 2024-10-23 14:31 | W.PN.UPDATE ---
Update Note
Progress Note Update
EGD showed a lot of blood in the stomach with a large ulcer
Patient was intubated for airway protection as she was vomiting.
PPI changed to drip
Hold aspirin
Patient had Plavix yesterday-still on hold
Transfer order placed to ICU
Discussed with GI and bus girl
time spent over 50 min total today
--- NOTE | 2024-10-23 15:10 | PTCARENOTE ---
Pt arrived from GI lab via stretched intubated being bagged by anesthesia. Pt is unresponsive. Placed on AC 16/300/.50/+5 via #[id number] taped 22cm right lip. Right FA #18g capped. Left FA 22g & right FA#20g flushed with no blood return. SHe was soiled
with a large amount of black tarry stool, fouls smelling. She was given complete CHG bath, Nasal trumpet WA inserted to quantify loose stool. Breath sounds anteriorly coarse and equal, during this time she desaturated to as low as 56%, we bagged her
and suctioned her. She had moderate thick clear secretions via ETT and copious oral secretions blood tinged. We called radiology for CXR to verify placement. +hyperactive BSX4. No void. SHe was started on IVF with propofol. Safe environment
maintained. Per her daughter Zulema she is Georgian speaking only. She was informed of the plan of care regarding monitoring her H/H and to repeat EGD tomorrow. She verbalized her understanding.
[2024-10-23] MEDS: DIPRIVAN 100 IV (15:25)
[2024-10-23] MEDS: D5LR 1000 IV (15:26)
[2024-10-23] MEDS: PROTONIX 100 IV ×2 (15:26→23:49)
--- NOTE | 2024-10-23 15:40 | PTCARENOTE ---
She again desaturated, Dr. Llanes and respiratory notified. Called radiology again for CXR, ETT was pulled back to 19cm after CXR obtained per Dr. Llanes. Pt pulse ox 99-100%, repeat film showed aeration of her left lung. Daughter was informed
of the event and the interventions taken to correct them. She verbalized her understanding.
--- NOTE | 2024-10-23 15:47 | CON.INTV ---
Consultation
Consultation Request
Date/Time Consultation Requested: 10/23/2024
Date/Time Consultation Performed: 10/23/2024
Requesting Provider: Dr. Ragsdale
Performing Provider: Dr. Llanes
Reason for Consultation: GIB
Medical History
-
Chief Complaint: Low blood pressure and blood positive in stool with abdominal pain
History of Present Illness:
79-year-old female with a past medical history of CVA, PAD and depression who presents with abdominal pain, constipation, low blood pressure and blood found in stool. Family reportedly tested her blood pressure and it was low in the 70s/40s. She
has been having upper abdominal pain since Saturday (past 1 week). She has not been eating or drinking for the last several days. She was here in the ER on 10/20/2024 for abdominal pain after eating fried fish, which led to vomiting x 1. CT
abdomen/pelvis at the time showed fecal impaction with diverticulosis and suspected hydrops gallbladder. Abdominal ultrasound showed no evidence for cholelithiasis or cholecystitis. Currently in the ER, she was afebrile to 98.4 �F, pulse rate 69,
respiratory rate 16, BP 122/94 and saturating 99% on room air. Labs significant for Hb of 10, WBC initially 15.1, platelet count 608, creatinine 1.4, BUN 37, and calcium 10.6. Patient developed upper abdominal pain and Hb dropped to 6.3 on CBC
from today (10/23), and patient's been having black stool. GI consulted who recommended an EGD. EGD performed showing large amount of red blood in the entire stomach with 1 L suctioned, with a nonobstructing oozing cratered gastric ulcer on the
greater curvature of the gastric body which was injected with epinephrine, cauterized with no active bleeding during the procedure and then 3 hemostatic clips placed. Patient then started vomiting and required intubation for airway protection.
Patient transferred to the ICU for further care and [employer] services consulted for additional management/recommendations.
PMHx: History of CVA, PAD, depression
PShx: Appendectomy, bilateral lower extremity arteriogram, cataract surgery
Past Medical History
Past Medical History: Other (Above as per HPI)
Past Surgical History: Other (Above as per HPI)
Social History
Tobacco: Smoker (Currently smokes <0.25)
Alcohol: None
Drug: None
Family History
Family History: CAD (Mother: CABG x 4) and Other (Father: Stroke)
Allergies / Home Medications
Allergies
Allergy/AdvReac Type Severity Reaction Status Date / Time
No Known Allergies Allergy Verified 10/22/24 17:59
Home Medications
�Medication �Instructions �Recorded �Confirmed �Last Taken �Type
aspirin 81 mg chewable tablet 81 mg PO DAILY ##30 08/31/18 10/22/24 10/22/24 08:00 Rx
clopidogrel 75 mg tablet 75 mg PO DAILY ##30 08/31/18 10/22/24 10/22/24 08:00 Rx
sertraline 25 mg tablet 25 mg PO DAILY 12/02/18 10/22/24 10/22/24 08:00 History
metoprolol succinate 100 mg 50 mg PO DAILY 05/27/19 10/22/24 10/22/24 08:00 History
tablet,extended release 24 hr
docusate sodium 100 mg capsule 100 mg PO MOWEFR 12/28/22 10/22/24 10/21/24 History
(Stool Softener)
polyethylene glycol 3350 17 gram 17 g PO BID #100 ea 10/20/24 10/22/24 10/22/24 08:00 Rx
oral powder packet (Miralax)
alendronate 70 mg tablet (Fosamax) 70 mg PO QWEEK 10/22/24 10/22/24 10/17/24 History
amlodipine 5 mg tablet 5 mg PO DAILY 10/22/24 10/22/24 10/22/24 08:00 History
atorvastatin 80 mg tablet 80 mg PO DAILY 10/22/24 10/22/24 10/22/24 08:00 History
cholecalciferol (vitamin D3) 25 25 mcg PO DAILY 10/22/24 10/22/2410/22/25 08:00 History
mcg (1,000 unit) capsule (Vitamin
D3)
famotidine 10 mg tablet (Pepcid AC) 10 mg PO DAILY 10/22/24 10/22/24 10/22/24 08:00 History
ferrous sulfate 325 mg (65 mg 325 mg PO MOWEFR 10/22/24 10/22/24 10/21/24 History
iron) tablet (iron)
ondansetron 4 mg disintegrating 4 mg PO Q8H PRN nausea 10/22/24 10/22/24 10/21/24 11:00 History
tablet
Review of Systems
-
Unable to Obtain full review of systems at this time due to: Patient Intubation
Vitals / Labs / Diagnostic Testing
Vital Signs
Temp Pulse Resp BP Pulse Ox
98.6 F 63 16 128/65 98
10/23/24 12:44 10/23/24 12:44 10/23/24 12:44 10/23/24 12:44 10/23/24 15:32
Lab Data
10/23/24 07:45
Diagnostic Testing:
Physical Exam
-
HEENT: Normocephalic and Anicteric
Cardiovascular: S1/S2 and Peripheral Edema (negative)
Respiratory: Wheeze (negative), Rales (negative), Rhonchi (negative), Non-Labored Respirations and Other (Mechanical breath sounds heard bilaterally)
GI: Soft, Non Distended, Non Tender and Normal Bowel Sounds
Neurology: Tremors (negative) and Other (Sedated)
Skin: Warm and Dry
General: Respiratory Distress (negative), Comfortable, Fever (negative) and Chills (negative)
Assessment
-
Assessment: 79-year-old female with a past medical history of CVA, PAD and depression who presents with abdominal pain, constipation, low blood pressure and blood found in stool. Family reportedly tested her blood pressure and it was low in the
70s/40s. She has been having upper abdominal pain since Saturday (past 1 week). She has not been eating or drinking for the last several days. She was here in the ER on 10/20/2024 for abdominal pain after eating fried fish, which led to vomiting x
1. CT abdomen/pelvis at the time showed fecal impaction with diverticulosis and suspected hydrops gallbladder. Abdominal ultrasound showed no evidence for cholelithiasis or cholecystitis. Currently in the ER, she was afebrile to 98.4 �F, pulse
rate 69, respiratory rate 16, BP 122/94 and saturating 99% on room air. Labs significant for Hb of 10, WBC initially 15.1, platelet count 608, creatinine 1.4, BUN 37, and calcium 10.6. Patient developed upper abdominal pain and Hb dropped to 6.3
on CBC from today (10/23), and patient's been having black stool. GI consulted who recommended an EGD. EGD performed showing large amount of red blood in the entire stomach with 1 L suctioned, with a nonobstructing oozing cratered gastric ulcer on
the greater curvature of the gastric body which was injected with epinephrine, cauterized with no active bleeding during the procedure and then 3 hemostatic clips placed. Patient then started vomiting and required intubation for airway protection.
Patient transferred to the ICU for further care and [employer] services consulted for additional management/recommendations.
Chronic conditions [place]: History of CVA, PAD, depression
Impression:
#Acute upper gastrointestinal hemorrhage with melena and increased BUN at upper portion to increased creatinine
#Acute blood loss anemia
#Metabolic acidosis with preserved anion gap
#Iron deficiency anemia
#Abnormal urinalysis with +1 leukocyte esterase and 11�15 urine WBC with many bacteria concerning for UTI
#Hypoalbuminemia
#Distended gallbladder with suspected hydrops gallbladder (abdominal US negative for cholelithiasis or acute cholecystitis)
#Numerous bilateral renal cysts with suspected polycystic kidney disease
Plan:
- Patient admitted for acute anemia with melena and suspected UGIB. EGD today (10/23) showed a nonobstructive oozing gastric ulcer with pigmented material which was injected, cauterized + clipped
- Due to patient vomiting, she had to be intubated for airway protection
- Continue with mechanical ventilation with daily SAT/SBT if clinically appropriate
- Maintain plateau pressure <30 and titrate FiO2 + PEEP to keep SpO2 >90-94%
- Continue aspiration precautions; keep HOB >30-45�
- prn nebulized bronchodilators - not currently bronchospastic
- Oropharyngeal + deep ETT suctioning with subglottic as needed
- Daily CXR + blood gas
- Daily vent adjustments as needed based on blood gas and SaO2
- Low level of sedation with goal RASS as 0 to -2
- Large-bore IV x 2
- Gastroenterology service following and recommendations appreciated
- NPO
- PPI gtt
- Serial H/H and transfuse as needed to keep Hb >7-8g/dL, plt>50k and INR<1.8
- Hold all anticoagulants + antiplatelets until instructed otherwise by GI
- Maintain MAP>65
- She will need another 1 L of crystalloids; continue trending serum bicarbonate level and if continues to decrease then she will need to have bicarb drip started
- Low threshold to start vasopressors
- Trend blood gases to assure pH + pCO2 remained stable
- Replete electrolytes with K>4, Mg>2
- Maintain euglycemia with goal BG 140-180; check A1c (last 6.1 on 05/19/2019)
- DVT ppx: SCDs only for now
Continue ICU level of care for this critically ill patient
Critical care statement: A total of 43 minutes of critical care time was provided for this patient today. This includes management of unstable vital signs, evaluation of the patient at bedside, reviewing the patient's pertinent medical records
including radiographs, microbiology, laboratory evaluations, and discussion with primary team, consultants, pharmacy, nutrition, physical therapy, case management, charge nurse, critical care nursing, and respiratory therapy.
[2024-10-23] MEDS: SUBLIMAZE 50 MCG IV ×2 (15:50→16:15)
--- NOTE | 2024-10-23 16:00 | PTCARENOTE ---
Restraints applied for pt restless in the bed. See work list for drip dosages. She was given stat fentanyl and versed as ordered.
[2024-10-23] MEDS: LIPITOR PO (16:07)
[2024-10-23] MEDS: VERSED 2 MG IV (16:15)
[2024-10-23] MEDS: SUBLIMAZE 100 IV (16:16)
[2024-10-23 16:36] LABS: B.E. -13.7 mmol/L; O2 Saturation % 98.6 % (94-98); PCO2 30 mmHg (32-35); PO2 95 mmHg (83-108); pH 7.23 (7.35-7.45)
[2024-10-23 16:39] LABS: HCO3 12.6 mmol/L (21-28)
--- NOTE | 2024-10-23 16:39 | CM ---
biology manager reviewed patient's chart and met with patient and daughter Zulema at bedside, patient was transferred to ICU and intubated. Patient lives with her daughter, Zulema and son in law in a multilevel home with 2 steps to enter, patient
is independent with adl's and uses a walker with ambulation, patient has a w/c for community distances.
AD information provided to patient and daughter
PCP: Matty Corona
Pharmacy: [facility]
Plan; Follow patient progress.
[2024-10-23 17:06] LABS: Hematocrit 27.8 % (37.0-47.0); Hemoglobin 9.4 g/dL (12.0-16.0)
[2024-10-23 17:55] LABS: Magnesium 1.8 mg/dl (1.6-2.3); Phosphorus 3.9 mg/dl (2.5-4.5)
[2024-10-23 18:05] LABS: Cortisol, Random 12.8 ug/dl
[2024-10-23 18:05] LABS: Urine Albumin 1+ (Neg - Trace); Urine Bilirubin Negative (Negative); Urine Character Clear (Clear); Urine Color Yellow; Urine Glucose Negative (Negative); Urine Ketone Negative (Negative); Urine Leukocyte 1+ (Negative); Urine Nitrite Negative (Negative); Urine Occult Blood Negative (Negative); Urine Specific Gravity 1.015 (<1.030); Urine Urobilinogen Negative (Neg - 1+)
[2024-10-23 18:12] LABS: Urine Hyaline Cast 0-2 /LPF (0-2); Urine Red Blood Cell 0-2 /HPF (0-2)
[2024-10-23 18:13] LABS: Urine Bacteria Many (Negative)
[2024-10-23 18:29] LABS: Folate 3.3 ng/ml (2.76-20)
[2024-10-23 19:04] LABS: Lactic Acid 0.9 mmol/L (0.7-2.0)
[2024-10-23 19:21] LABS: ALT (SGPT) < 10 U/L (0-35); AST (SGOT) 14 U/L (14-36); Albumin 2.1 g/dl (3.5-5.0); Alkaline Phosphatase 36 U/L (38-126); Blood Urea Nitrogen 40 mg/dl (7-17); Calcium 7.1 mg/dl (8.4-10.2); Carbon Dioxide 12 mmol/L (22-30); Chloride 122 mmol/L (98-107); Estimated Creatinine Clearance 24 ml/min; Glucose 112 mg/dl (70-99); Potassium 3.8 mmol/L (3.5-5.1); Sodium 141 mmol/L (135-145); Total Bilirubin 0.5 mg/dl (0.2-1.3); Total Protein 4.2 g/dl (6.3-8.2); eGFR 51.11
[2024-10-23] MEDS: SODIUM BICARBONATE 1150 MEQ IV (19:55)
--- NOTE | 2024-10-23 20:00 | PTCARENOTE ---
Pt Intubated and sedated. AC 20/320/50%/5 peep. ETT #7, 19cm at the right lip. SB/NSR with 1st degree, no edema. Propofol, Fentanyl, and protonix infusing per order. Hyperactive BS, + dark tarry stools per RT. Ibrahim in place. skin intact.
[2024-10-23] MEDS: MAGNESIUM SULFATE 100 IV (20:01)
[2024-10-23 20:05] LABS: Ferritin 17.9 ng/ml (11.1-264.0)
[2024-10-23] MEDS: NSS IV (20:22)
[2024-10-23 20:51] LABS: Vitamin B12 177 pg/ml (239-931)
[2024-10-23] MEDS: KCL 160 MEQ IV (21:04)
[2024-10-23 21:07] LABS: Hepatitis C Antibody Negative (Negative)
[2024-10-23 22:15] LABS: B.E. -9.6 mmol/L; O2 Saturation % 98.9 % (94-98); PCO2 26 mmHg (32-35); PO2 86 mmHg (83-108); pH 7.36 (7.35-7.45)
[2024-10-23 22:16] LABS: HCO3 14.7 mmol/L (21-28)
[2024-10-23 22:26] LABS: Hematocrit 18.1 % (37.0-47.0); Hemoglobin 6.2 g/dL (12.0-16.0)
--- NOTE | 2024-10-23 23:30 | PTCARENOTE ---
Bicarb 12, LR D/c'd, Sodium bicab gtt ordered. Potassium and Mag replaced as well. Vent settings changed RR increased 22. Hemoglobin 6.2, 1PRBC ordered and infusing.
[2024-10-24] VITALS (53 sets, daily range): BP systolic 76–153; BP diastolic 39–69
[2024-10-24] MEDS: SUBLIMAZE 100 IV ×3 (00:15→18:00)
[2024-10-24] MEDS: DIPRIVAN 100 IV ×2 (01:33→22:09)
[2024-10-24 04:03] LABS: Hematocrit 28.4 % (37.0-47.0); Hemoglobin 9.9 g/dL (12.0-16.0); Mean Corp Hgb Conc. 34.9 g/dL (33.0-37.0); Mean Corpuscular Hgb 28.9 pg (27.0-31.0); Mean Corpuscular Volume 82.8 fL (81.0-99.0); Platelet Count 241 10^3/uL (130-400); Red Blood Cell Count 3.43 10^6/uL (4.20-5.40); Red Cell Dist. Width 15.7 % (11.5-14.5); White Blood Cell Count 10.1 10^3/uL (4.8-10.8)
[2024-10-24 04:13] LABS: Blood Urea Nitrogen 39 mg/dl (7-17); Calcium 7.1 mg/dl (8.4-10.2); Carbon Dioxide 18 mmol/L (22-30); Chloride 117 mmol/L (98-107); Estimated Creatinine Clearance 24 ml/min; Glucose 91 mg/dl (70-99); Phosphorus 2.9 mg/dl (2.5-4.5); Potassium 4.3 mmol/L (3.5-5.1); Sodium 140 mmol/L (135-145); eGFR 51.11
[2024-10-24 04:50] LABS: HCO3 17.3 mmol/L (21-28); O2 Saturation % 95.6 % (94-98); PCO2 30 mmHg (32-35); PO2 68 mmHg (83-108); pH 7.37 (7.35-7.45)
[2024-10-24 04:51] LABS: O2 Therapy 50
[2024-10-24] MEDS: CALCIUM GLUCONATE 130 MG IV (05:30)
--- NOTE | 2024-10-24 07:17 | PTCARENOTE ---
Received pt intubated and sedated. Her daughter Zulema stayed overnight to translate and to assist in calming the pt. Pt opened her eyes to repositioning and turning. #7ETT secured 19cm right lip. AC 22/320/.60/+5. ETT suctioned for moderate
amount of lopez secretions. Right FA with Propofol and fentanyl, moved to the left FA#22g protective catheter. Right FA#20g with protonix @8mg/hr. +peripheral pulses, +1 anasarca. +hyperactive BSX4. Nasal trumpet with liquid black tarry stool, leaked
around anus, cleansed. Ibrahim secured. Knee-hi scd's intact. Aspiration precautions maintained. Family provided supportive care. Safe environment maintained.
--- NOTE | 2024-10-24 08:22 | W.PN.INTV ---
Today's Communication / Plan
Recommendations
Mechanical ventilation with light sedation with goal RASS 0 to -2
PPI drip
Serial CBC, transfusion to keep Hb >7-8 g/dL, platelets >50k and INR <1.8
GI on board
Start antibiotics due to left lower lobe pneumonia and follow up infectious workup
Start DuoNebs + nebulized 3%
Continue ICU level of care for this critically ill patient
Assessment
-
Assessment: 79-year-old female with a past medical history of CVA, PAD and depression who presents with abdominal pain, constipation, low blood pressure and blood found in stool. Family reportedly tested her blood pressure and it was low in the
70s/40s. She has been having upper abdominal pain since Saturday (past 1 week). She has not been eating or drinking for the last several days. She was here in the ER on 10/20/2024 for abdominal pain after eating fried fish, which led to vomiting x
1. CT abdomen/pelvis at the time showed fecal impaction with diverticulosis and suspected hydrops gallbladder. Abdominal ultrasound showed no evidence for cholelithiasis or cholecystitis. Currently in the ER, she was afebrile to 98.4 �F, pulse
rate 69, respiratory rate 16, BP 122/94 and saturating 99% on room air. Labs significant for Hb of 10, WBC initially 15.1, platelet count 608, creatinine 1.4, BUN 37, and calcium 10.6. Patient developed upper abdominal pain and Hb dropped to 6.3
on CBC from today (10/23), and patient's been having black stool. GI consulted who recommended an EGD. EGD performed showing large amount of red blood in the entire stomach with 1 L suctioned, with a nonobstructing oozing cratered gastric ulcer on
the greater curvature of the gastric body which was injected with epinephrine, cauterized with no active bleeding during the procedure and then 3 hemostatic clips placed. Patient then started vomiting and required intubation for airway protection.
Patient transferred to the ICU for further care and [employer] services consulted for additional management/recommendations.
Chronic conditions [place]: History of CVA, PAD, depression
Impression:
#Acute upper gastrointestinal hemorrhage with melena due to gastric ulcer s/p epinephrine injection, cauterization and clipping x 3
#
#Acute respiratory failure with hypoxia now on mechanical elation (intubated 10/23)
#Acute blood loss anemia
#Metabolic acidosis with preserved anion gap
#Iron deficiency anemia
#Abnormal urinalysis with +1 leukocyte esterase and 11�15 urine WBC with many bacteria concerning for UTI
#Hypoalbuminemia
#Distended gallbladder with suspected hydrops gallbladder (abdominal US negative for cholelithiasis or acute cholecystitis)
#Numerous bilateral renal cysts with suspected polycystic kidney disease
Plan:
- Patient admitted for acute anemia with melena and suspected UGIB. EGD today (10/23) showed a nonobstructive oozing gastric ulcer with pigmented material which was injected, cauterized + clipped
- Due to patient vomiting, she had to be intubated for airway protection
- Continue with mechanical ventilation with daily SAT/SBT if clinically appropriate -->hopefully pt will get repeat EGD tomorrow or saturday and then if no active bleed I can perform SBT
- Maintain plateau pressure <30 and titrate FiO2 + PEEP to keep SpO2 >90-94%
- Continue aspiration precautions; keep HOB >30-45�
- prn nebulized bronchodilators - not currently bronchospastic
- Oropharyngeal + deep ETT suctioning with subglottic as needed
- Daily CXR + blood gas
- Daily vent adjustments as needed based on blood gas and SaO2
- Low level of sedation with goal RASS as 0 to -2
- Large-bore IV x 2
- Gastroenterology service following and recommendations appreciated
- Keep NPO; if patient not extubated by tomorrow then we will start tube feeds if okay with GI
- PPI gtt
- Serial H/H and transfuse as needed to keep Hb >7-8g/dL, plt>50k and INR<1.8
- Hold all anticoagulants + antiplatelets until instructed otherwise by GI
- Maintain MAP>65
- She was given 1L NS 0.9% yesterday in ICu due to hypotension; continue trending serum bicarbonate level and if continues to decrease then she will need to have bicarb drip started
- Low threshold to start vasopressors
- Trend blood gases to assure pH + pCO2 remained stable
- Patient weaned down for CT abdomen/pelvis today showing a posteromedial left lower lobe pneumonia. Agree with starting Unasyn; check blood cultures + respiratory culture; check Legionella + strep pneumoniae urine antigens. Check MRSA swab.
- She has thick ETT secretions with difficulty suctioning. Start DuoNebs + nebulized 3%; would hold off on support. As unclear if this can aggravate her upper GI bleed
- If there is evidence of atelectasis on CXR tomorrow then we will consider performing bronchoscopy prior to extubation
- Replete electrolytes with K>4, Mg>2
- Maintain euglycemia with goal BG 140-180; A1c: 5.5 (10/24/2024; prior was 6.1 on 05/19/2019)
- DVT ppx: SCDs only for now
Multiple family members were updated at bedside, including Nima, son, Jonelle, daughter, and Edsteve pereira, grandson all questions were answered.
Continue ICU level of care for this critically ill patient
Critical care statement: A total of 41 minutes of critical care time was provided for this patient today. This includes management of unstable vital signs, evaluation of the patient at bedside, reviewing the patient's pertinent medical records
including radiographs, microbiology, laboratory evaluations, and discussion with primary team, consultants, pharmacy, nutrition, physical therapy, case management, charge nurse, critical care nursing, and respiratory therapy.
Subjective Dataa
Subjective Data
Date of Service:
Date of Service: October 24, 2024
Chief Complaint: [employer] Follow Up
Subjective:
Patient seen this morning and evaluated. Febrile this morning to 101.1 �F. She remains intubated on AC/CMV 22/320/70%/5 with PIP 17 cmH2O, VTe 323 cc and breathing at 20 breaths/minute. Transfused 1 unit last night, and Hb this morning was 9.9.
She is currently sedated on fentanyl at 125 mcg/hr and propofol at 30 mcg/kg/min. Also on PPI drip.
Review of Systems
General: Unobtainable - Sedation
Objective Data
Data Reviewed
Vital Signs / I&O / Oxygen:
Vital Signs
Temp Pulse Resp BP Pulse Ox
102.3 F H 75 18 141/69 92
10/24/24 11:00 10/24/24 09:45 10/24/24 09:45 10/24/24 09:43 10/24/24 10:45
Intake and Output
10/23/24 10/24/24 10/25/24
06:59 06:59 06:59
Intake Total 720 / 720 2558.6 / 2688.2 348.0 / 348.0
Output Total 1225 / 1315 140 / 140
Balance 720 / 720 1333.6 / 1373.2 208.0 / 208.0
SaO2 [A/C] 99
SaO2 92
Physical Exam
General: Respiratory Distress (negative), Comfortable, Chills (negative) and Sweats (negative)
HEENT: Normocephalic and Anicteric
Cardiovascular: S1-S2, Peripheral Edema (negative) and Other (Occasional extrasystoles)
Respiratory: Wheeze (negative), Crackles (Left hemithorax), Rhonchi (negative), Non-Labored Respirations and ET Tube (Mechanical breath sounds heard bilaterally)
GI: Soft, Non Distended, Non Tender and Normal Bowel Sounds
Neurology: Tremors (negative) and Other (Sedated)
Skin: Warm, Dry and Cyanosis (negative)
Labs/Micro/Reports
Lab Data
10/24/24 03:39
Laboratory Results
10/23/24 10/23/24 10/24/24
16:28 21:57 04:29
pH 7.23 L 7.36 7.37
pCO2 30 L 26 L 30 L
pO2 95 86 68 L
HCO3 12.6 L* 14.7 L* 17.3 L
O2 Delivery Level 50
[2024-10-24] MEDS: SUBLIMAZE 50 MCG IV (08:36)
--- NOTE | 2024-10-24 08:50 | W.PN.HOSP.TC ---
Today's Communication/Plan
-
For CT of the abdomen pelvis per GI today
Repeat endoscopy today
Continue PPI drip
Follow H&H
Continue to follow fever curve and if recurrent will start on IV Unasyn
Assessment / Plan
Assessment / Plan
79-year-old with epigastric pain since Saturday. Vomited once on Saturday has not been able to eat or drink much for the past few days. Patient was evaluated in the ER and was discharged with MiraLAX as she was found to have constipation. She also
had heme positive stools in PCP office as well as in the ER
10/20/2024-ultrasound of the abdomen-no evidence of cholelithiasis or acute cholecystitis
CAT scan of the abdomen and pelvis-10/20/2024-distended gallbladder. May be gallbladder hydrops. Acute cholecystitis cannot be excluded. Large amount of fecal material in the rectum concerning for fecal impaction. Diverticulosis, numerous
bilateral renal cysts suggesting polycystic kidney disease-stable. Air in the uterus stable etiology unknown but likely insignificant considering [facility] stability
# Epigastric pain/anemia/heme positive stools/melena secondary to gastric Ulceration
# Bleeding gastric ulceration status post EGD and epinephrine injection. Failed attempts at hemostatic clips noted.
#Acute blood loss anemia secondary to GI bleed status post 2 units of transfusion
#History of DAPT use for at least 5 years for history of recurrent strokes and PAD status post PCI
Follow hemoglobin
Continue to trend hemoglobin
Hold Plavix-will discuss with vascular the need of dual antiplatelet agents
Restart aspirin when okay from GI standpoint. For repeat endoscopy today
Continue PPI infusion
N.p.o. with IV fluids
# Vent dependent respiratory failure
Patient intubated at the time of EGD due to significant bleeding.
Chest x-ray yesterday also showed complete opacification of left lung suggestive of atelectasis. Chest x-ray today shows improved left lung inflation. Clinical concern of right bronchus intubation.
Continue with intubation until repeat endoscopy and reevaluate for wean.
# PRERNA-likely secondary to hypovolemia/blood loss
Continue IV fluids and follow creatinine
Improving
# Acute on chronic anemia secondary to acute blood loss and iron deficiency
Transfused 2 unit of blood.
Iron supplementation
# Leukocytosis-Resolved.
# Fever-unclear if transfusion related or infection related-obtain blood cultures. Also concern if there is any aspirational issue with hematemesis. Continue to follow and if recurrent start on IV Unasyn.
# Hypertension-hold antihypertensive
# History of CVA-hold Plavix. Restart aspirin when okay from GI standpoint
# Depression-continue sertraline
# Hyperlipidemia-continue statin
# Cognitive impairment
# Smoker-cessation counseling
# DVT prophylaxis-SCDs
# Full code
D/W RN
D/W GI
D/W Daughter at bed side
Total Critical Care Time__32___ minutes. I was immediately available to the patient and staff. I personally examined, reviewed labs, diagnostic images/reports, interpretations, treatment plans, discussed patient care with other providers and
family or caregivers (if patient is unable to make decisions), entered orders as appropriate and documented the medical record.
Part of this note was created using voice recognition system. Occasional wrong word or��sound alike� substitutions may have inadvertently occurred due to the inherent limitations of voice recognition software. If noted kindly bring it to my
attention for correction.
Anticipated Discharge: > 48 hours
Subjective/Interval History
-
Date of Service: October 24, 2024
Sedated and intubated on vent.
Patient had a fever spike today. Blood pressure stable.
Objective Data
-
Labs:
Laboratory Results
10/22/24 10/23/24 10/23/24
18:37 21:57 22:13
WBC
Hgb 6.2 L* D
Hct 18.1 L*
Plt Count
HCO3 14.7 L*
Sodium 137
Potassium
Chloride 108 H
Carbon Dioxide 19 L
BUN 37 H
Creatinine 1.4 H
Glucose 119 H
Calcium 10.6 H
Total Bilirubin Cancelled
AST Cancelled
ALT Cancelled
Alkaline Phosphatase Cancelled
10/24/24 10/24/24
03:39 04:29
WBC 10.1
Hgb 9.9 L D
Hct 28.4 L
Plt Count 241 D
HCO3 17.3 L
Sodium 140
Potassium 4.3
Chloride 117 H
Carbon Dioxide 18 L
BUN 39 H
Creatinine 1.1 H
Glucose 91
Calcium 7.1 L
Total Bilirubin
AST
ALT
Alkaline Phosphatase
Vital Signs:
Vital Signs
Temp Pulse Resp BP Pulse Ox
101.1 F H 63 22 122/55 95
10/24/24 08:02 10/24/24 04:45 10/24/24 04:45 10/24/24 04:30 10/24/24 08:32
I&O
10/23/24 10/24/24 10/25/24
06:59 06:59 06:59
Intake Total 720 / 720 2558.6 / 2688.2 129.6 / 129.6
Output Total 1225 / 1315 90 / 90
Balance 720 / 720 1333.6 / 1373.2 39.6 / 39.6
Review of Systems
-
Unable to obtain full review of systems at this time due to: Patient Intubation
Physical Exam
-
General: No Apparent Distress
Respiratory: Clear to Auscultation (Anteriorly) and Non Labored Respirations; Negative Accessory Resp Muscle Use
Cardiac: Regular Rhythm and S1/S2; Negative Murmur
GI: Soft, Nondistended and Normal Bowel Sounds
Neuro: Sedated
Data Reviewed
-
Labs: Labs Reviewed by me
[2024-10-24] MEDS: OFIRMEV 100 IV (10:34)
--- NOTE | 2024-10-24 11:02 | W.PN.GI.CBS2 ---
Today's Communication / Plan
-
Recommendation: - Give Protonix (pantoprazole): 8 mg/hr IV by continuous infusion.
- Keep patient intubated and in the ICU.
Blood cx, Urine cx, sputum cx ordered
- Likely aspiration PNA causing fevers, Unasyn started
- Monitor H/H and transfuse as needed.
- Repeat EGD after fevers resolve
- Avoid aspirin/plavix.
Also noted is chronic pancreatitis on the CT scan.
As per patient's son, patient used to drink up to 12 beers a day previously, about 2 years ago she used to drink about 3 beers daily and now it is only social.
Significant smoking history.
Reviewed with patient's daughter and son that as outpatient, she will need MRI to evaluate the pancreas. This could explain epigastric pain and some weight loss that she experienced.
Assessment / Plan
-
Pt is a 79yo Bulgarian speaking female with hx CVA, mild dementia, depression, GERD with chronic pepcid use, PAD with prior arteriogram on chronic ASA and Plavix , thrombocytosis, tobacco abuse, prior appe with onset of epigastric pain since last
week. She was seen in ER 10/20 with initial vomiting with symptoms. She has a leukocytosis with WBC 13.5, mild PRERNA with a creatinine of 1.4.with normal LFT's. Ct completed prior to admission byut PCP noted with Distended gallbladder which could
be benign gallbladder hydrops but cannot exclude cholecystitis�recommended follow-up ultrasound. She also has large amount of fecal material in the rectum concerning for fecal impaction. air in uterus. Follow up limited US with No sonographic
evidence for cholelithiasis or acute cholecystitis. She was given enema with improvement and discharged. She continued with abdominal pain and was referred back to ER. She has had wt loss and noted with black heme + stool and on return hbg drop
for initial 10 to 6.3 with concern for GI bleed. She has had about 10 + lb wt loss in 2 years and vomiting clear fluid last weeks with prior constipation and some continued loose black stools after admission. No hx EGD or colonoscopy in past. Pt
with hx prior anemia with hbg 10- 11 range on chronic iron prior to admission.
-melena
-anemia with drop in hbg after admission
-epigastric pain
-recent constipation
-CT with distention- benign GB hydrops f/u US without cholelithiasis or acute cholecystitis
-PAD on chronic ASA and Plavix
-leukocytosis
-PRERNA
-GERD with chronic Pepcid use
other med problems:
-thrombocytosis
-mild dementia
-depression
-hx CVA
-appe
-tobacco abuse
Impression: - No gross lesions in the entire esophagus.
- Red blood in the entire stomach. Fluid aspiration
performed.
- Non-obstructing oozing gastric ulcer with pigmented
material. Injected. Clips were placed.
CT scan A/P-1. Endoscopy clips located along the lesser curvature of the gastric body and small ulceration in the lateral greater curvature of the stomach. Mild gastric distention with fluid and air. No CT evidence for full-thickness ulcer
perforation, pneumoperitoneum, or perigastric fluid collection.
2. NEW LARGE DENSE LEFT LOWER LOBE AIRSPACE CONSOLIDATION consistent with postobstructive atelectasis (possibly pneumonia) secondary to endobronchial obstruction of the left lower lobe bronchus with mucous plugging.
3. New endobronchial obstruction in the posterior basilar segment of the right lower lobe and small right lower lobe airspace consolidation.
4. Minimal bilateral pleural effusions.
5. Severe calcific atherosclerotic plaque in the thoracic and abdominal aorta.
6. Polycystic kidney disease.
7. Mild intrahepatic and extrahepatic biliary dilatation.
8. Severe gallbladder distention.
9. Chronic pancreatitis.
10. Severe colonic diverticulosis.
11. Small volume ascites in the pelvis and right paracolic gutter.
Recommendation: - Give Protonix (pantoprazole): 8 mg/hr IV by continuous infusion.
- Keep patient intubated and in the ICU.
Blood cx, Urine cx, sputum cx ordered
- Likely aspiration PNA causing fevers, Unasyn started
- Monitor H/H and transfuse as needed.
- Repeat EGD after fevers resolve
- Avoid aspirin/plavix.
Also noted is chronic pancreatitis on the CT scan.
As per patient's son, patient used to drink up to 12 beers a day previously, about 2 years ago she used to drink about 3 beers daily and now it is only social.
Significant smoking history.
Reviewed with patient's daughter and son that as outpatient, she will need MRI to evaluate the pancreas. This could explain epigastric pain and some weight loss that she experienced.
Subjective
Subjective
Date of Service: October 24, 2024
Pt had fevers this am upto 102. No further bleeding. Still intubated.
Objective
Data Reviewed
Laboratory Data:
Laboratory Results
10/24/24 03:39
10/24/24 03:39
Laboratory Results
Phosphorus 2.9 mg/dl (2.5-4.5) 10/24/24 03:39
Magnesium 2.0 mg/dl (1.6-2.3) 10/24/24 03:39
Total Bilirubin 0.5 mg/dl (0.2-1.3) 10/23/24 18:43
AST 14 U/L (14-36) 10/23/24 18:43
ALT < 10 U/L (0-35) 10/23/24 18:43
Alkaline Phosphatase 36 U/L (38-126) L 10/23/24 18:43
Lipase 202 U/L (23-300) 10/22/24 23:38
Vital Signs and I&O:
Vital Signs
Temp Pulse Resp BP Pulse Ox
102.2 F H 75 18 141/69 92
10/24/24 09:57 10/24/24 09:45 10/24/24 09:45 10/24/24 09:43 10/24/24 10:45
I&O
10/23/24 10/24/24 10/25/24
06:59 06:59 06:59
Intake Total 720 / 720 2558.6 / 2688.2 129.6 / 129.6
Output Total 1225 / 1315 90 / 90
Balance 720 / 720 1333.6 / 1373.2 39.6 / 39.6
Physical Exam
Physical Exam
GI: Soft, Non Distended and Non Tender
[2024-10-24] MEDS: PROTONIX 100 IV ×2 (11:25→20:56)
[2024-10-24] MEDS: DUONEB 3 ML INH ×3 (11:51→20:00)
[2024-10-24] MEDS: SODIUM CHLORIDE 3% FOR INHALATION 1 VIAL INH ×2 (11:55→20:00)
[2024-10-24] MEDS: NSS 1000 IV (11:55)
[2024-10-24] MEDS: UNASYN IV (11:55)
--- NOTE | 2024-10-24 12:00 | PTCARENOTE ---
ETT moved to the left. New ETT moran applied, now @ 22cm. Breath sounds equal, moist cough. Temperature staring to come down. Hypotensive, SBP 76. Dr. Llanes notified. Will administer 0.9nss liter bolus, & 25% Albumin. Family is aware of the
plan. Will continue to monitor. Safe environment maintained.
[2024-10-24] MEDS: FLEXBUMIN 100 IV (12:46)
--- NOTE | 2024-10-24 13:00 | W.PN.ANS.POP ---
Anesthesia Post Operative
- Anesthesia Post Op Note
Vital Signs Stable-See Nursing Note: Yes
Airway Patent: Yes (Intubated and sedated)
Adequate Pain Control: Yes
Change in Mental Status: No (Intubated and sedated)
Current Postoperative Nausea & Vomiting: No
Anesthesia Complications: No
General Anesthetic Recall: No (Intubated and sedated)
Unplanned Admission: No
Post Op Hydration Adequate: Yes
[2024-10-24] MEDS: PROTONIX IV (13:11)
[2024-10-24 13:52] LABS: Glycohemoglobin (HgbA1c) 5.5 % (4.0-5.6)
[2024-10-24 17:02] LABS: Hemoglobin 8.2 g/dL (12.0-16.0); Mean Corp Hgb Conc. 34.2 g/dL (33.0-37.0); Mean Corpuscular Hgb 28.5 pg (27.0-31.0); Mean Corpuscular Volume 83.3 fL (81.0-99.0); Mean Platelet Volume 10.5 fL (7.4-10.4); Platelet Count 207 10^3/uL (130-400); Red Blood Cell Count 2.88 10^6/uL (4.20-5.40); Red Cell Dist. Width 15.9 % (11.5-14.5); White Blood Cell Count 14.5 10^3/uL (4.8-10.8)
--- NOTE | 2024-10-24 20:00 | PTCARENOTE ---
Pt intubated and sedated, wakes up to tactile stimuli. Does not follow commands. KING, pupils reactive. NSR/ST with 1st degree on monitor. +1 anasarca. Remains on Fentanyl, Propofol and Protonix gtt. AC 22/320/60%/5peep. ETT #7, 22cm at the left lip.
Anterior lungs coarse and rancorous, bases diminished. +bowl sounds. Rectal trumpet flushed, liquid black stools. Ibrahim.
[2024-10-25] VITALS (47 sets, daily range): BP systolic 100–151; BP diastolic 46–68
[2024-10-25] MEDS: UNASYN IV ×2 (00:09→11:49)
[2024-10-25] MEDS: SUBLIMAZE 100 IV ×2 (02:24→10:58)
--- NOTE | 2024-10-25 05:00 | PTCARENOTE ---
Pt started on bicarb gtt. 40meq potassium replaced. Right IV site infiltrated, removed. New IV placed.
[2024-10-25 05:13] LABS: Hematocrit 27.2 % (37.0-47.0); Hemoglobin 9.3 g/dL (12.0-16.0); Mean Corp Hgb Conc. 34.2 g/dL (33.0-37.0); Mean Corpuscular Hgb 28.5 pg (27.0-31.0); Mean Corpuscular Volume 83.4 fL (81.0-99.0); Mean Platelet Volume 10.5 fL (7.4-10.4); Platelet Count 227 10^3/uL (130-400); Red Blood Cell Count 3.26 10^6/uL (4.20-5.40); White Blood Cell Count 9.6 10^3/uL (4.8-10.8)
[2024-10-25 05:31] LABS: Blood Urea Nitrogen 31 mg/dl (7-17); Calcium 7.9 mg/dl (8.4-10.2); Carbon Dioxide 13 mmol/L (22-30); Chloride 119 mmol/L (98-107); Estimated Creatinine Clearance 22 ml/min; Glucose 98 mg/dl (70-99); Potassium 3.4 mmol/L (3.5-5.1); Sodium 141 mmol/L (135-145); eGFR 46.05
[2024-10-25] MEDS: SODIUM BICARBONATE 1150 MEQ IV (06:02)
[2024-10-25] MEDS: PROTONIX 100 IV ×2 (06:06→15:19)
[2024-10-25] MEDS: KCL 270 MEQ IV (06:10)
--- NOTE | 2024-10-25 08:10 | W.PN.INTV ---
Today's Communication / Plan
Recommendations
Mechanical ventilation with light sedation with goal RASS 0 to -2
PPI drip
Repeat EGD today and depending on findings we will awaken and do SBT
Check CXR and if evidence of significant atelectasis then will perform bronchoscopy for cleanout prior to extubation
Serial CBC, transfusion to keep Hb >7-8 g/dL, platelets >50k and INR <1.8
GI on board
Continue antibiotics due to left lower lobe pneumonia and follow up infectious workup
Continue DuoNebs + nebulized 3%
If patient not extubated today then will start tube feeds, if agreed by GI
Continue ICU level of care for this critically ill patient
Assessment
-
Assessment: 79-year-old female with a past medical history of CVA, PAD and depression who presents with abdominal pain, constipation, low blood pressure and blood found in stool. Family reportedly tested her blood pressure and it was low in the
70s/40s. She has been having upper abdominal pain since Saturday (past 1 week). She has not been eating or drinking for the last several days. She was here in the ER on 10/20/2024 for abdominal pain after eating fried fish, which led to vomiting x
1. CT abdomen/pelvis at the time showed fecal impaction with diverticulosis and suspected hydrops gallbladder. Abdominal ultrasound showed no evidence for cholelithiasis or cholecystitis. Currently in the ER, she was afebrile to 98.4 �F, pulse
rate 69, respiratory rate 16, BP 122/94 and saturating 99% on room air. Labs significant for Hb of 10, WBC initially 15.1, platelet count 608, creatinine 1.4, BUN 37, and calcium 10.6. Patient developed upper abdominal pain and Hb dropped to 6.3
on CBC from today (10/23), and patient's been having black stool. GI consulted who recommended an EGD. EGD performed showing large amount of red blood in the entire stomach with 1 L suctioned, with a nonobstructing oozing cratered gastric ulcer on
the greater curvature of the gastric body which was injected with epinephrine, cauterized with no active bleeding during the procedure and then 3 hemostatic clips placed. Patient then started vomiting and required intubation for airway protection.
Patient transferred to the ICU for further care and [employer] services consulted for additional management/recommendations.
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
Impression:
#Acute upper gastrointestinal hemorrhage with melena due to gastric ulcer s/p epinephrine injection, cauterization and clipping x 3
#Acute respiratory failure with hypoxia now on mechanical elation (intubated 10/23)
#Acute blood loss anemia
#Metabolic acidosis with preserved anion gap
#Iron deficiency anemia
#Abnormal urinalysis with +1 leukocyte esterase and 11�15 urine WBC with many bacteria concerning for UTI
#Hypoalbuminemia
#Distended gallbladder with suspected hydrops gallbladder (abdominal US negative for cholelithiasis or acute cholecystitis)
#Numerous bilateral renal cysts with suspected polycystic kidney disease
Plan:
- Patient admitted for acute anemia with melena and suspected UGIB. EGD today (10/23) showed a nonobstructive oozing gastric ulcer with pigmented material which was injected, cauterized + clipped
- Due to patient vomiting, she had to be intubated for airway protection
- Continue with mechanical ventilation with daily SAT/SBT if clinically appropriate --> plan to have GI perform EGD today and as long as no concerning findings without active bleeding from recently discovered gastric ulcer, then will awaken patient
from sedation and perform SBT
- Maintain plateau pressure <30 and titrate FiO2 + PEEP to keep SpO2 >90-94%
- Continue aspiration precautions; keep HOB >30-45�
- prn nebulized bronchodilators - not currently bronchospastic
- Oropharyngeal + deep ETT suctioning with subglottic as needed
- Daily CXR + blood gas
- Daily vent adjustments as needed based on blood gas and SaO2
- Low level of sedation with goal RASS as 0 to -2
- Large-bore IV x 2
- Gastroenterology service following and recommendations appreciated
- Keep NPO; if patient not extubated by today then will start tube feeds if okay with GI
- PPI gtt
- Serial H/H and transfuse as needed to keep Hb >7-8g/dL, plt>50k and INR<1.8
- Hold all anticoagulants + antiplatelets until instructed otherwise by GI
- Maintain MAP>65
- She was given 1L NS 0.9% on 10/23 in ICU due to hypotension; continue trending serum bicarbonate level and if continues to decrease then she will need to have bicarb drip started
- Low threshold to start vasopressors
- Trend blood gases to assure pH + pCO2 remained stable
- Patient went down for CT abdomen/pelvis on 10/24 showing a posteromedial left lower lobe pneumonia. Continue Unasyn; follow up blood cultures + respiratory culture; check Legionella + strep pneumoniae urine antigens. Check MRSA swab.
- She has thick ETT secretions with difficulty suctioning - on 10/24 she was started on DuoNebs + nebulized 3%; would hold off on sport bed as unclear if this can aggravate her upper GI bleed
- Check CXR and if there is evidence of atelectasis then we will consider performing bronchoscopy prior to extubation
- Replete electrolytes with K>4, Mg>2
- Maintain euglycemia with goal BG 140-180; A1c: 5.5 (10/24/2024; prior was 6.1 on 05/19/2019)
- DVT ppx: SCDs only for now
On 10/24: Dr. Llanes spoke to multiple family members that were present at, including Nima, son, Jonelle, daughter, and Bharat, grandson - all questions were answered.
Continue ICU level of care for this critically ill patient
Critical care statement: A total of 38 minutes of critical care time was provided for this patient today. This includes management of unstable vital signs, evaluation of the patient at bedside, reviewing the patient's pertinent medical records
including radiographs, microbiology, laboratory evaluations, and discussion with primary team, consultants, pharmacy, nutrition, physical therapy, case management, charge nurse, critical care nursing, and respiratory therapy.
Subjective Dataa
Subjective Data
Date of Service:
Date of Service: October 25, 2024
Chief Complaint: [employer] Follow Up
Subjective:
Pt was seen and evaluated this AM. HR 88, SpO2 97%, BP 135/58. She remains intubated on AC/CMV at 24/350/40%/5 with PIP 20 cmH2O, VTe 336 mL and breathing at 24 breaths/min. Earlier this morning, tidal volume settings was 320 and respiratory rate
was set to 22 on the ventilator. She is sedated currently on propofol at 15 mcg/kg/min and fentanyl at 75 mcg/hr, and also on PPI drip. Patient's daughter, Zulema, present at bedside. Patient follows some commands but otherwise remains too
sedated to assess her mental status.
Review of Systems
General: Unobtainable - Sedation
Objective Data
Data Reviewed
Vital Signs / I&O / Oxygen:
Vital Signs
Temp Pulse Resp BP Pulse Ox
100.3 F 74 22 115/55 98
10/25/24 07:00 10/25/24 08:15 10/25/24 08:15 10/25/24 08:00 10/25/24 08:15
Intake and Output
10/24/24 10/25/24 10/26/24
06:59 06:59 06:59
Intake Total 2558.6 / 2688.2 2220.6 / 2417.7 394.2 / 394.2
Output Total 1225 / 1315 720 / 745 55 / 55
Balance 1333.6 / 1373.2 1500.6 / 1672.7 339.2 / 339.2
SaO2 [A/C] 99
SaO2 98
Physical Exam
General: Respiratory Distress (negative), Comfortable, Chills (negative) and Sweats (negative)
HEENT: Normocephalic and Anicteric
Cardiovascular: S1-S2, Peripheral Edema (Trace lower extremity pitting edema bilaterally) and Other (Occasional extrasystoles)
Respiratory: Wheeze (negative), Crackles (Left hemithorax), Rhonchi (negative), Non-Labored Respirations and ET Tube (Mechanical breath sounds heard bilaterally)
GI: Soft, Non Distended, Non Tender and Normal Bowel Sounds
Neurology: Tremors (negative) and Other (Sedated although opens eyes to commands)
Skin: Warm, Dry and Cyanosis (negative)
Labs/Micro/Reports
Lab Data
10/25/24 05:02
Microbiology
10/24/24 09:26 Endotracheal Respiratory Culture - Preliminary
10/24/24 09:26 Endotracheal Gram Stain - Preliminary
[2024-10-25] MEDS: DUONEB 3 ML INH ×4 (08:14→20:40)
[2024-10-25] MEDS: SODIUM CHLORIDE 3% FOR INHALATION 1 VIAL INH ×2 (08:14→20:40)
[2024-10-25] MEDS: SUBLIMAZE 50 MCG IV ×3 (08:22→14:40)
--- NOTE | 2024-10-25 08:28 | W.PN.GI.CBS2 ---
Today's Communication / Plan
-
-Continue Protonix (pantoprazole): 8 mg/hr IV by continuous infusion.
H&H stable after 3 units of PRBC transfusion 10/23/2024
Plan is for repeat EGD prior to extubation. Sent message to pulmonary/hospitalist team, if plan is to extubate today, will do upper endoscopy today and if not, will wait for bicarb to be corrected prior to EGD.
Low-grade fever, Blood cx, Urine cx, sputum cx pending
- Likely aspiration PNA causing fevers, Unasyn started
- Monitor H/H and transfuse as needed.
-Noted acidotic with low bicarb, currently being corrected
-Also noted is chronic pancreatitis on the CT scan.
As per patient's son, patient used to drink up to 12 beers a day previously, about 2 years ago she used to drink about 3 beers daily and now it is only social.
Significant smoking history.
Reviewed with patient's daughter and son that as outpatient, she will need MRI to evaluate the pancreas. This could explain epigastric pain and some weight loss that she experienced.
Assessment / Plan
-
Pt is a 79yo Yoruba speaking female with hx CVA, mild dementia, depression, GERD with chronic pepcid use, PAD with prior arteriogram on chronic ASA and Plavix , thrombocytosis, tobacco abuse, prior appe with onset of epigastric pain since last
week. She was seen in ER 10/20 with initial vomiting with symptoms. She has a leukocytosis with WBC 13.5, mild PRERNA with a creatinine of 1.4.with normal LFT's. Ct completed prior to admission byut PCP noted with Distended gallbladder which could
be benign gallbladder hydrops but cannot exclude cholecystitis�recommended follow-up ultrasound. She also has large amount of fecal material in the rectum concerning for fecal impaction. air in uterus. Follow up limited US with No sonographic
evidence for cholelithiasis or acute cholecystitis. She was given enema with improvement and discharged. She continued with abdominal pain and was referred back to ER. She has had wt loss and noted with black heme + stool and on return hbg drop
for initial 10 to 6.3 with concern for GI bleed. She has had about 10 + lb wt loss in 2 years and vomiting clear fluid last weeks with prior constipation and some continued loose black stools after admission. No hx EGD or colonoscopy in past. Pt
with hx prior anemia with hbg 10- 11 range on chronic iron prior to admission.
-melena
-anemia with drop in hbg after admission
-epigastric pain
-recent constipation
-CT with distention- benign GB hydrops f/u US without cholelithiasis or acute cholecystitis
-PAD on chronic ASA and Plavix
-leukocytosis
-PRERNA
-GERD with chronic Pepcid use
other med problems:
-thrombocytosis
-mild dementia
-depression
-hx CVA
-appe
-tobacco abuse
Impression: - No gross lesions in the entire esophagus.
- Red blood in the entire stomach. Fluid aspiration
performed.
- Non-obstructing oozing gastric ulcer with pigmented
material. Injected. Clips were placed.
CT scan A/P-1. Endoscopy clips located along the lesser curvature of the gastric body and small ulceration in the lateral greater curvature of the stomach. Mild gastric distention with fluid and air. No CT evidence for full-thickness ulcer
perforation, pneumoperitoneum, or perigastric fluid collection.
2. NEW LARGE DENSE LEFT LOWER LOBE AIRSPACE CONSOLIDATION consistent with postobstructive atelectasis (possibly pneumonia) secondary to endobronchial obstruction of the left lower lobe bronchus with mucous plugging.
3. New endobronchial obstruction in the posterior basilar segment of the right lower lobe and small right lower lobe airspace consolidation.
4. Minimal bilateral pleural effusions.
5. Severe calcific atherosclerotic plaque in the thoracic and abdominal aorta.
6. Polycystic kidney disease.
7. Mild intrahepatic and extrahepatic biliary dilatation.
8. Severe gallbladder distention.
9. Chronic pancreatitis.
10. Severe colonic diverticulosis.
11. Small volume ascites in the pelvis and right paracolic gutter.
Recommendation:
-Continue Protonix (pantoprazole): 8 mg/hr IV by continuous infusion.
H&H stable after 3 units of PRBC transfusion 10/23/2024
Plan is for repeat EGD prior to extubation. Sent message to pulmonary/hospitalist team, if plan is to extubate today, will do upper endoscopy today and if not, will wait for bicarb to be corrected prior to EGD.
Low-grade fever, Blood cx, Urine cx, sputum cx pending
- Likely aspiration PNA causing fevers, Unasyn started
- Monitor H/H and transfuse as needed.
-Noted acidotic with low bicarb, currently being corrected
-Also noted is chronic pancreatitis on the CT scan.
As per patient's son, patient used to drink up to 12 beers a day previously, about 2 years ago she used to drink about 3 beers daily and now it is only social.
Significant smoking history.
Reviewed with patient's daughter and son that as outpatient, she will need MRI to evaluate the pancreas. This could explain epigastric pain and some weight loss that she experienced.
Subjective
Subjective
Date of Service: October 25, 2024
No events overnight. Low-grade temperature. No further episodes of bleeding. Currently hemodynamically stable
Objective
Data Reviewed
Laboratory Data:
Laboratory Results
10/25/24 05:02
10/25/24 05:02
Laboratory Results
Phosphorus 2.9 mg/dl (2.5-4.5) 10/24/24 03:39
Magnesium 2.0 mg/dl (1.6-2.3) 10/24/24 03:39
Total Bilirubin 0.5 mg/dl (0.2-1.3) 10/23/24 18:43
AST 14 U/L (14-36) 10/23/24 18:43
ALT < 10 U/L (0-35) 10/23/24 18:43
Alkaline Phosphatase 36 U/L (38-126) L 10/23/24 18:43
Lipase 202 U/L (23-300) 10/22/24 23:38
Vital Signs and I&O:
Vital Signs
Temp Pulse Resp BP Pulse Ox
100.3 F 74 22 109/51 98
10/25/24 07:00 10/25/24 08:15 10/25/24 08:15 10/25/24 06:00 10/25/24 08:15
I&O
10/24/24 10/25/24 10/26/24
06:59 06:59 06:59
Intake Total 2558.6 / 2688.2 2220.6 / 2220.6
Output Total 1225 / 1315 720 / 720
Balance 1333.6 / 1373.2 1500.6 / 1500.6
Physical Exam
Physical Exam
GI: Soft, Non Distended and Non Tender
[2024-10-25 09:45] LABS: Venous Blood Gas HCO3 20.7 mmol/L (22-27); Venous Blood Gas O2 Sat % 87.6 %; Venous Blood Gas pCO2 45 mmHg (35-48); Venous Blood Gas pH 7.27 (7.32-7.43); Venous Blood Gas pO2 55 mmHg (30-50)
[2024-10-25 10:05] LABS: Uric Acid 3.8 mg/dl (2.5-6.2)
--- NOTE | 2024-10-25 10:05 | W.PN.HOSP.TC ---
Addendum entered and electronically signed by Chuy Gamez MD 10/25/24 10:12:
Replete K prior to initiation of the IV bicarb.
Original Note:
Today's Communication/Plan
-
Check lactic acid
Continue with IV fluids with bicarb
Repeat BMP this evening
Follow H&H closely
Continue with IV Unasyn
Wean vent per pulmonary
Assessment / Plan
Assessment / Plan
79-year-old with epigastric pain since Saturday. Vomited once on Saturday has not been able to eat or drink much for the past few days. Patient was evaluated in the ER and was discharged with MiraLAX as she was found to have constipation. She also
had heme positive stools in PCP office as well as in the ER
10/20/2024-ultrasound of the abdomen-no evidence of cholelithiasis or acute cholecystitis
CAT scan of the abdomen and pelvis-10/20/2024-distended gallbladder. May be gallbladder hydrops. Acute cholecystitis cannot be excluded. Large amount of fecal material in the rectum concerning for fecal impaction. Diverticulosis, numerous
bilateral renal cysts suggesting polycystic kidney disease-stable. Air in the uterus stable etiology unknown but likely insignificant considering retirement stability
# Epigastric pain/anemia/heme positive stools/melena secondary to gastric Ulceration
# Bleeding gastric ulceration status post EGD and epinephrine injection. Failed attempts at hemostatic clips noted.
#Acute blood loss anemia secondary to GI bleed status post 2 units of transfusion
#History of DAPT use for at least 5 years for history of recurrent strokes and PAD status post PCI
Continue to trend hemoglobin-stable
Hold Plavix-will discuss with vascular tomorrow the need of dual antiplatelet agents
Restart aspirin when okay from GI standpoint. For repeat endoscopy depending on clinical situation
Continue PPI infusion
# Vent dependent respiratory failure
Patient intubated at the time of EGD due to significant bleeding.
Chest x-ray yesterday also showed complete opacification of left lung suggestive of atelectasis. Chest x-ray today shows improved left lung inflation. Clinical concern of right bronchus intubation.
Continue vent per pulmonary
# Leukocytosis-Resolved.
# Fever- concern if there is any aspirational issue with hematemesis. Abdominal CT done yesterday for GI indication showed new large dense left lower lobe airspace consolidation also new endobronchial obstruction in the posterior basilar segment of
the right lower lobe and small right lower lobe airspace consolidation all concerning for aspiration pneumonia. Continue with IV Unasyn. Improved fever curve. Normalized WBC.
# PRERNA-likely secondary to hypovolemia/blood loss
Continue IV fluids and follow creatinine
Improving
#Hypokalemia-replete
#Metabolic acidosis with normal anion gap
VBG shows pH of 7.27
Unclear if still related to renal insufficiency. Check lactic acid. Abdomen benign.
Continue with IV fluids with bicarbonate and follow BMP this evening.
# Acute on chronic anemia secondary to acute blood loss and iron deficiency
Transfused 2 unit of blood.
Iron supplementation
# Hypertension-hold antihypertensive
# History of CVA-hold Plavix. Restart aspirin when okay from GI standpoint
# Depression-continue sertraline
# Hyperlipidemia-continue statin
# Cognitive impairment
# Smoker-cessation counseling
# DVT prophylaxis-SCDs
# Full code
D/W RN at bedside
D/W GI/bundle wrapper
D/W Daughter at bed side
Total Critical Care Time__32___ minutes. I was immediately available to the patient and staff. I personally examined, reviewed labs, diagnostic images/reports, interpretations, treatment plans, discussed patient care with other providers and
family or caregivers (if patient is unable to make decisions), entered orders as appropriate and documented the medical record.
Part of this note was created using voice recognition system. Occasional wrong word or��sound alike� substitutions may have inadvertently occurred due to the inherent limitations of voice recognition software. If noted kindly bring it to my
attention for correction.
Anticipated Discharge: > 48 hours
Subjective/Interval History
-
Date of Service: October 25, 2024
Sedated on vent
No overnight issues. No diarrhea.
Objective Data
-
Labs:
Laboratory Results
10/25/24
05:02
WBC 9.6
Hgb 9.3 L
Hct 27.2 L
Plt Count 227
Sodium 141
Potassium 3.4 L
Chloride 119 H
Carbon Dioxide 13 L*
BUN 31 H
Creatinine 1.2 H
Glucose 98
Calcium 7.9 L
Vital Signs:
Vital Signs
Temp Pulse Resp BP Pulse Ox
100.3 F 74 22 115/55 98
10/25/24 07:00 10/25/24 08:15 10/25/24 08:15 10/25/24 08:00 10/25/24 08:15
I&O
10/24/24 10/25/24 10/26/24
06:59 06:59 06:59
Intake Total 2558.6 / 2688.2 2220.6 / 2417.7 394.2 / 394.2
Output Total 1225 / 1315 720 / 745 55 / 55
Balance 1333.6 / 1373.2 1500.6 / 1672.7 339.2 / 339.2
Review of Systems
-
Unable to obtain full review of systems at this time due to: Patient Intubation
Physical Exam
-
General: No Apparent Distress
Respiratory: Clear to Auscultation (Anteriorly) and Non Labored Respirations; Negative Accessory Resp Muscle Use
Cardiac: Regular Rhythm and S1/S2
GI: Soft, Nondistended and Normal Bowel Sounds
Neuro: Sedated
Psych: Calm
Data Reviewed
-
Labs: Labs Reviewed by me
[2024-10-25] MEDS: DIPRIVAN 100 IV (10:57)
[2024-10-25] MEDS: D5/0.45%NSS with KCL 10 MEQ 1000 IV (11:21)
--- NOTE | 2024-10-25 11:23 | PTCARENOTE ---
bicarb fluids changed as ordered.
[2024-10-25 12:08] LABS: Magnesium 1.9 mg/dl (1.6-2.3); Phosphorus 3.7 mg/dl (2.5-4.5)
--- NOTE | 2024-10-25 12:18 | PTCARENOTE ---
Systems reviewed. No new changed. Pt had mod amount black/deep red liquid stool around rectal trumpet, collins/jesse care again done, rectal trumpet flushed with small amount moving to bag. First bm noted for shift.
--- NOTE | 2024-10-25 13:19 | RESPNOTE ---
ETT moved to LEFT side on mouth at this time.
[2024-10-25 13:26] LABS: Blood Urea Nitrogen 30 mg/dl (7-17); Calcium 7.2 mg/dl (8.4-10.2); Carbon Dioxide 19 mmol/L (22-30); Chloride 118 mmol/L (98-107); Estimated Creatinine Clearance 22 ml/min; Glucose 106 mg/dl (70-99); Lactic Acid 1.3 mmol/L (0.7-2.0); Potassium 3.6 mmol/L (3.5-5.1); Sodium 142 mmol/L (135-145); eGFR 46.05
--- NOTE | 2024-10-25 14:18 | PTCARENOTE ---
Repeat labs drawn and sent as ordered. Power Julian and Mario Alberto all aware. Plan to do bedside egd and then work on extubation if able. Son at bedside and aware. IV team at bedside to place a midline. Pt premedicated with fentanyl for
upcoming procedure. Discussed with Trevon Steve and Mario Alberto.
--- NOTE | 2024-10-25 14:39 | PTCARENOTE ---
pt having bedside egd by Dr Steve
[2024-10-25] MEDS: PROTONIX IV (15:18)
--- NOTE | 2024-10-25 15:46 | PTCARENOTE ---
Pt tolerated egd well. once procedure completed, propofol off and shortly after fentanyl stopped for wean. pt placed on cpap /ps 5/5 40%. children at bedside with pt
--- NOTE | 2024-10-25 16:10 | CM ---
Chart reviewed. Anticipated Discharge: > 48 hours
Case Management will continue to monitor for disposition needs/services and support accordingly
[2024-10-25 16:49] LABS: HCO3 18.2 mmol/L (21-28); O2 Saturation % 98.9 % (94-98); PCO2 30 mmHg (32-35); PO2 108 mmHg (83-108); pH 7.39 (7.35-7.45)
--- NOTE | 2024-10-25 20:00 | PTCARENOTE ---
Received pt resting in bed. Will nod head appropriately to questions but no words spoken. KING but weak. ST on tele, HR 100-110s. BP 130-140s/50s. +1 anasarca. Low grade temp - will monitor. SCDs maintained. On 4L NC, spo2 95%. Lungs coarse with
rhonchi. Non productive cough. + bowel sounds. No BM this shift. NPO. Temp sensing collins draining lety urine. R midline patent and capped. R AC with D5 1/[id number] @ 80ml/hr. Protonix gtt continues per orders via L FA. Monitoring
[2024-10-26] VITALS (20 sets, daily range): BP systolic 116–167; BP diastolic 40–100; PULSE 95; O2SAT 94
[2024-10-26] MEDS: UNASYN IV ×3 (00:41→23:26)
[2024-10-26] MEDS: D5/0.45%NSS with KCL 10 MEQ 1000 IV (00:41)
[2024-10-26] MEDS: LOPRESSOR 5 MG IV ×3 (00:41→11:34)
--- NOTE | 2024-10-26 00:54 | PTCARENOTE ---
Pt reassessed. Temp 100.7 - ofirmev ordered by ENDS DOWN CHECKER. Assessment otherwise unchanged.
[2024-10-26] MEDS: OFIRMEV 100 IV (01:04)
[2024-10-26] MEDS: PROTONIX 100 IV (01:04)
[2024-10-26 04:11] LABS: Hematocrit 23.8 % (37.0-47.0); Hemoglobin 8.1 g/dL (12.0-16.0); Mean Corpuscular Hgb 28.4 pg (27.0-31.0); Mean Corpuscular Volume 83.5 fL (81.0-99.0); Mean Platelet Volume 10.5 fL (7.4-10.4); Platelet Count 222 10^3/uL (130-400); Red Blood Cell Count 2.85 10^6/uL (4.20-5.40); Red Cell Dist. Width 16.4 % (11.5-14.5); White Blood Cell Count 14.9 10^3/uL (4.8-10.8)
[2024-10-26 04:37] LABS: Blood Urea Nitrogen 24 mg/dl (7-17); Calcium 7.1 mg/dl (8.4-10.2); Carbon Dioxide 20 mmol/L (22-30); Chloride 118 mmol/L (98-107); Estimated Creatinine Clearance 22 ml/min; Glucose 133 mg/dl (70-99); Potassium 3.5 mmol/L (3.5-5.1); Sodium 142 mmol/L (135-145); eGFR 46.05
[2024-10-26] MEDS: KCL 260 MEQ IV (05:19)
[2024-10-26] MEDS: CALCIUM GLUCONATE 130 MG IV (05:19)
[2024-10-26] MEDS: DUONEB 3 ML INH ×4 (07:27→19:26)
[2024-10-26] MEDS: SODIUM CHLORIDE 3% FOR INHALATION 1 VIAL INH ×2 (07:28→19:26)
--- NOTE | 2024-10-26 09:45 | PTCARENOTE ---
Rec'd care of patient at 0700. Patient alert and oriented. Flat affect. MAEx4. NSR with first degree av block on tele. +2 edema in b/l UE. Arms elevated on pillows. Palpable pulses. Weaned from 3L nc to RA. Pulse ox 93%. Scattered crackles
auscultated posteriorly. +BS. Advanced to clear liquid diet by GI. Appetite poor (per daughter, this is baseline). Incontinent of small smear of black bm. Ibrahim in place for critical I/O. VSS. Daughter and son at bedside.
--- NOTE | 2024-10-26 10:41 | PTCARENOTE ---
Patient downgraded to [facility]. PT/OT orders obtained. Patient c/o pain when swallowing. [employer] MANAGER consult requested.
--- NOTE | 2024-10-26 10:55 | PTCARENOTE ---
IVFs capped. Ibrahim out.
--- NOTE | 2024-10-26 11:04 | W.PN.INTV ---
Today's Communication / Plan
Recommendations
Monitor H&H
Advance diet
Physical therapy/Occupational Therapy
Continue antibiotics for now Unasyn-hopefully can transition to Augmentin
Follow-up final sputum culture-suspect MSSA
Continue secretion clearance interventions
Transfer to [facility]
Pulmonary will follow briefly
Assessment
-
Assessment: 79-year-old female with a past medical history of CVA, PAD and depression who presents with abdominal pain, constipation, low blood pressure and blood found in stool. Family reportedly tested her blood pressure and it was low in the
70s/40s. She has been having upper abdominal pain since Saturday (past 1 week). She has not been eating or drinking for the last several days. She was here in the ER on 10/20/2024 for abdominal pain after eating fried fish, which led to vomiting x
1. CT abdomen/pelvis at the time showed fecal impaction with diverticulosis and suspected hydrops gallbladder. Abdominal ultrasound showed no evidence for cholelithiasis or cholecystitis. Currently in the ER, she was afebrile to 98.4 �F, pulse
rate 69, respiratory rate 16, BP 122/94 and saturating 99% on room air. Labs significant for Hb of 10, WBC initially 15.1, platelet count 608, creatinine 1.4, BUN 37, and calcium 10.6. Patient developed upper abdominal pain and Hb dropped to 6.3
on CBC from today (10/23), and patient's been having black stool. GI consulted who recommended an EGD. EGD performed showing large amount of red blood in the entire stomach with 1 L suctioned, with a nonobstructing oozing cratered gastric ulcer on
the greater curvature of the gastric body which was injected with epinephrine, cauterized with no active bleeding during the procedure and then 3 hemostatic clips placed. Patient then started vomiting and required intubation for airway protection.
Patient transferred to the ICU for further care and [employer] services consulted for additional management/recommendations.
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
Impression:
#Acute upper gastrointestinal hemorrhage with melena due to gastric ulcer s/p epinephrine injection, cauterization and clipping x 3
Repeat EGD 10/25/2024: No evidence for active bleeding.
#Acute respiratory failure with hypoxia now on mechanical ventilation (intubated 10/23)
#Acute blood loss anemia
#Metabolic acidosis with preserved anion gap
#Iron deficiency anemia
#Abnormal urinalysis with +1 leukocyte esterase and 11�15 urine WBC with many bacteria concerning for UTI
#Hypoalbuminemia
#Distended gallbladder with suspected hydrops gallbladder (abdominal US negative for cholelithiasis or acute cholecystitis)
#Numerous bilateral renal cysts with suspected polycystic kidney disease
Plan:
Clinically improved-now extubated.
Not on oxygen therapy
Repeat EGD 10/25/2024 without active bleeding
Hemoglobin stabilized
Hemodynamically stable.
-
- Patient admitted for acute anemia with melena and suspected UGIB. EGD today (10/23) showed a nonobstructive oozing gastric ulcer with pigmented material which was injected, cauterized + clipped
- Due to patient vomiting, she had to be intubated for airway protection-likely aspirated.
- Now extubated-on room air.
- Repeat chest x-ray 10/26/2024: Possible left lower lobe mild atelectasis versus infiltrate.
- Gastric ulcers-repeat EGD 10/25/2024. Gastric ulcers without stigmata of bleeding.
- Gastroenterology service following and recommendations appreciated
- Continue PPI
Left lower lobe pneumonia.
Leukocytosis-fever curve improving.
Not hypotensive.
- Patient went down for CT abdomen/pelvis on 10/24 showing a posteromedial left lower lobe pneumonia. Continue Unasyn-for total of 5 days.
- Discussed with primary team-can transition to Augmentin when able to swallow pills.
-Blood culture negative-Legionella and Streptococcus antigen and urine negative.
-Sputum culture: Normal respiratory anatoly/staph RES-presumptive MSSA.
-MRSA screening negative.
-Able to clear secretions-discontinue vest therapy.
-Continue DuoNebs for secretion clearance
- Okay to continue 3% saline nebulized for 1 additional day.
-Acapella device
-Increase mobility-physical therapy/Occupational Therapy.
- Pulmonary will continue to follow.
- Replete electrolytes with K>4, Mg>2
- Maintain euglycemia with goal BG 140-180; A1c: 5.5 (10/24/2024; prior was 6.1 on 05/19/2019)
- DVT ppx: SCDs only for now
10/26/2024: Dr. Gomez updated daughter at the bedside in [place] and patient as well.
On 10/24: Dr. Llanes spoke to multiple family members that were present at, including Nima, son, Jonelle, daughter, and Bharat, grandson - all questions were answered.
At this point, we will transfer to [facility] surgery. Pulmonary will continue to follow briefly regarding pneumonia.
Subjective Dataa
Subjective Data
Date of Service:
Date of Service: October 26, 2024
Chief Complaint: Ground [employer]er Follow Up
Subjective:
Patient feels tired
Denies nausea, vomiting or abdominal pain.
Reports sore throat after procedure.
Review of Systems
Cardiopulmonary: Dyspnea (n)
GI: Abdominal Pain (n), Nausea (n) and Vomiting (n)
Neuro: Headache (n)
Objective Data
Data Reviewed
Vital Signs / I&O / Oxygen:
Vital Signs
Temp Pulse Resp BP Pulse Ox
99.4 F 82 20 139/60 92
10/26/24 07:25 10/26/24 10:00 10/26/24 10:00 10/26/24 10:00 10/26/24 10:00
Intake and Output
10/25/24 10/26/24 10/27/24
06:59 06:59 06:59
Intake Total 2220.6 / 2417.7 2876.9 / 3356.9 730 / 730
Output Total 720 / 745 595 / 700 340 / 340
Balance 1500.6 / 1672.7 2281.9 / 2656.9 390 / 390
SaO2 [CPAP/PSV] 94
SaO2 [A/C] 97
SaO2 92
Nasal Cannula flow liters per 2
minute
Physical Exam
General: Respiratory Distress (negative), Comfortable, Chills (negative) and Sweats (negative)
HEENT: Normocephalic and Anicteric
Cardiovascular: S1-S2, Peripheral Edema (Trace lower extremity pitting edema bilaterally) and Other (Occasional extrasystoles)
Respiratory: Wheeze (negative), Crackles (Left hemithorax), Rhonchi (negative) and Non-Labored Respirations
GI: Soft, Non Distended, Non Tender and Normal Bowel Sounds
Neurology: Awake, Alert and No Motor Deficits
Skin: Warm, Dry and Cyanosis (negative)
Labs/Micro/Reports
Lab Data
10/26/24 03:51
10/26/24 03:51
Laboratory Results
10/25/24
16:43
pH 7.39
pCO2 30 L
pO2 108
HCO3 18.2 L
O2 Delivery Level
Microbiology
10/24/24 10:57 Blood/Venous Blood Culture - Preliminary
No Growth in 48 hours- Final report to follow
10/24/24 10:42 Blood/Venous Blood Culture - Preliminary
No Growth in 48 hours- Final report to follow
10/24/24 09:26 Endotracheal Respiratory Culture - Preliminary
Staphylococcus aureus
10/24/24 09:26 Endotracheal Gram Stain - Preliminary
10/25/24 15:27 Urine Legionella Urinary Antigen - Final
Negative for Legionella pneumophila Serogroup 1 antigen.
A negative result does not rule out the possiblity of
Legionella infection due to other serogroups or species of
Legionella. Clinical correlation is recommended.
10/25/24 15:27 Urine Streptococcus pneumoniae Antigen (M - Final
Negative for Streptococcus pneumoniae antigen.
A negative result does not exclude infection with
Streptococcus pneumoniae. Clinical correlation is
recommended.
10/23/24 17:37 Urine Urine Culture - Preliminary
Sparse growth, too young to be identified. Further results
to follow.
--- NOTE | 2024-10-26 11:35 | W.PN.ANS.POP ---
Anesthesia Post Operative
- Anesthesia Post Op Note
Vital Signs Stable-See Nursing Note: Yes
Airway Patent: Yes
Adequate Pain Control: Yes
Change in Mental Status: No
Current Postoperative Nausea & Vomiting: No
Anesthesia Complications: No
General Anesthetic Recall: No
Unplanned Admission: No
Post Op Hydration Adequate: Yes
--- NOTE | 2024-10-26 12:24 | W.PN.HOSP.TC ---
Addendum entered and electronically signed by Matt Ragsdale MD 10/26/24 13:08:
Discussed with GI. Restart aspirin and Plavix after 3 days with double dose PPI.
Original Note:
Today's Communication/Plan
-
Transfer out of ICU
PT evaluation
Patient's daughter does not want her to go to rehab
Restart metoprolol 25 mg daily
Replace B12
Restart aspirin and Plavix when okay with GI
Assessment / Plan
Assessment / Plan
79-year-old with epigastric pain since Saturday. Vomited once on Saturday has not been able to eat or drink much for the past few days. Patient was evaluated in the ER and was discharged with MiraLAX as she was found to have constipation. She also
had heme positive stools in PCP office as well as in the ER
10/20/2024-ultrasound of the abdomen-no evidence of cholelithiasis or acute cholecystitis
CAT scan of the abdomen and pelvis-10/20/2024-distended gallbladder. May be gallbladder hydrops. Acute cholecystitis cannot be excluded. Large amount of fecal material in the rectum concerning for fecal impaction. Diverticulosis, numerous
bilateral renal cysts suggesting polycystic kidney disease-stable. 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
CT abdomen and pelvis 10/24/2024-endoscopic clips in the lesser curvature of the gastric body and a small ulceration in the lateral curvature of the stomach mild gastric distention with fluid and air no evidence of perforation.
New large dense left lower lobe airspace consolidation with postobstructive atelectasis secondary to endobronchial obstruction of the left lower lobe bronchus with mucous plugging. No endobronchial obstruction with basilar segment right lower lobe.
Severe calcific atherosclerotic plaque in the thoracic and abdominal aorta. Polycystic kidney disease. Mild intrahepatic and extrahepatic biliary dilatation. Severe gallbladder distention. Chronic pancreatitis. Severe colonic diverticulosis.
Small volume ascites. Severe discogenic DJD L5-S1. Grade 1 anterolisthesis L4-L5. Chronic fractures T12
On examination patient is awake and alert extubated
Cardiovascular system S1-S2 appreciated
Chest clear to auscultation
Abdomen soft and nontender
No pedal edema
# Epigastric pain/anemia/heme positive stools/melena secondary to gastric Ulceration
# Bleeding gastric ulceration status post EGD and epinephrine injection. Failed attempts at hemostatic clips noted.
#Acute blood loss anemia secondary to GI bleed status post 2 units of transfusion
#History of DAPT use for at least 5 years for history of recurrent strokes and PAD status post PCI
Continue to trend hemoglobin-stable
Hold Plavix-will discuss with vascular tomorrow the need of dual antiplatelet agents
Restart aspirin when okay from GI standpoint. For repeat endoscopy depending on clinical situation
Continue PPI infusion
# Vent dependent respiratory failure
Patient intubated at the time of EGD due to significant bleeding.
Chest x-ray yesterday also showed complete opacification of left lung suggestive of atelectasis.
Aspiration pneumonia
Patient extubated
# Leukocytosis-Resolved.
# Fever- concern if there is any aspirational issue with hematemesis. Abdominal CT done yesterday for GI indication showed new large dense left lower lobe airspace consolidation also new endobronchial obstruction in the posterior basilar segment of
the right lower lobe and small right lower lobe airspace consolidation all concerning for aspiration pneumonia.
Continue with IV Unasyn. Improved fever curve. Normalized WBC.
# PRERNA-likely secondary to hypovolemia/blood loss
Also contrast-induced nephropathy
Follow creatinine
#Hypokalemia-replete
#Metabolic acidosis with normal anion gap
VBG shows pH of 7.27
Unclear if still related to renal insufficiency.
P.o. bicarb
# Acute on chronic anemia secondary to acute blood loss and iron deficiency
Transfused 2 unit of blood.
Iron supplementation
# B12 deficiency-replace IM
# Mild intrahepatic and extrahepatic biliary dilatation and severe gallbladder distention--MRI as outpatient. LFTs are normal
# Hypertension-hold amlodipine and restart metoprolol 25 mg daily dose. Patient on 50 mg daily as outpatient
# History of CVA-hold Plavix. Restart aspirin when okay from GI standpoint
# Depression-continue sertraline
# Polycystic kidney disease according to CT
# Hyperlipidemia/atherosclerosis-continue statin. Restart aspirin when okay with GI
# Cognitive impairment
# Diverticulosis
# Chronic pancreatitis per CT-patient needs MRI of the pancreas as outpatient
Per GI notes patient used to drink up to 12 beers a day previously and about 2 years ago she used to drink 3 beers a day and now it is only socially.
# Chronic fracture of T12 treated with vertebroplasty/grade 1 anterolisthesis L4 on L5/severe discogenic DJD L5-S1
# Smoker-cessation counseling
# DVT prophylaxis-SCDs
# Full code
D/W RN at bedside
D/W GI/detasseler
D/W Daughter at bed side
Part of this note was created using voice recognition system. Occasional wrong word or��sound alike� substitutions may have inadvertently occurred due to the inherent limitations of voice recognition software. If noted kindly bring it to my
attention for correction.
Anticipated Discharge: 24 - 48 hours
Subjective/Interval History
-
Date of Service: October 26, 2024
Objective Data
-
Labs:
Laboratory Results
10/26/24
03:51
WBC 14.9 H
Hgb 8.1 L
Hct 23.8 L
Plt Count 222
Sodium 142
Potassium 3.5
Chloride 118 H
Carbon Dioxide 20 L
BUN 24 H
Creatinine 1.2 H
Glucose 133 H
Calcium 7.1 L
Vital Signs:
Vital Signs
Temp Pulse Resp BP Pulse Ox
99.4 F 86 24 139/69 93
10/26/24 07:25 10/26/24 12:00 10/26/24 12:00 10/26/24 12:00 10/26/24 12:00
I&O
10/25/24 10/26/24 10/27/24
06:59 06:59 06:59
Intake Total 2220.6 / 2417.7 2876.9 / 3356.9 850 / 850
Output Total 720 / 745 595 / 700 340 / 340
Balance 1500.6 / 1672.7 2281.9 / 2656.9 510 / 510
[2024-10-26] MEDS: CYANOCOBALAMIN 1000 MCG IM (13:09)
[2024-10-26] MEDS: TOPROL XL 25 MG PO (13:09)
--- NOTE | 2024-10-26 13:18 | PTOTSP ---
Dysphagia Evaluation
Signs of odynophagia present without any overt signs of aspiration with limited PO accepted at time of evaluation. Risk factors for odynophagia including recent intubation (10/23-10/25), vomiting, and EGD. Chronic dysphagia risk factors include CVA
- though she has no known baseline dysphagia history per discussion with family.
Recommend:
1. IDDSI 7 Regular, Thin
2. Medications: as best tolerated
3. Strategies: upright to 90 degrees, pick soft/moist foods as needed for comfort
4. Brief dysphagia f/u x1 to determine if further instrumental swallowing assessment warranted
--- NOTE | 2024-10-26 14:58 | CM ---
Addendum entered by Jed Carlton 10/26/24 15:44:
Patient transferred to Room 332-1.
Original Note:
Discharge POC: Order for PT/OT. Awaiting therapy eval and recommendation. Previously noted that daughter does not want patient to go to a SNF. Patient lives with daughter and S-I-L.
--- NOTE | 2024-10-26 15:26 | TRANSFER ---
Patient transported to 3W with belongings. Daughter present.
[2024-10-26] MEDS: SODIUM BICARBONATE 650 MG PO ×2 (15:49→20:22)
[2024-10-26] MEDS: NORVASC 5 MG PO (15:49)
--- NOTE | 2024-10-26 16:30 | TRANSFER ---
pt arrives from ICU requiring pull up hand into hospital bed. family at bedside, translating. pt reports she is comfortable at the moment with no pressing issues. plan of care continues to be followed.
[2024-10-26] MEDS: LIPITOR 80 MG PO (17:12)
--- NOTE | 2024-10-26 18:36 | PTCARENOTE ---
pt straight cathed by coworker Sharon Rn with this RN at bedside assisting. 650 ml clear yellow urine obtained. pt with no void s/p indwelling cath being dcd earlier in the day. MD bullock aware of straight cath. daughter at bedside during
procedure to help translate. pt tolerated well, reports that her abdominal discomfort had subsided s/p catheterization.
--- NOTE | 2024-10-26 19:13 | W.PN.GI.CBS2 ---
Today's Communication / Plan
-
Recommendation:
No further bleeding at this time, hemoglobin seems to be stable
Currently extubated, BUN trending down.
Will switch protonix to 40mg iv bod and OK to change to po at discharge.
H&H stable after 3 units of PRBC transfusion 10/23/2024
Repeat endoscopy showing gastric ulcer without any stigmata of bleeding, also noted was pyloric stenosis, status post balloon dilation.
Currently on clear liquid diet, okay to advance to full liquid diet and if tolerates okay, low residue and low-fat diet.
Repeat EGD in 8 weeks to check healing of the gastric ulcer and the biopsy for H. pylori.
Avoid NSAIDs.
Okay to start aspirin/Plavix 10/29/2024
No fevers today, Blood cx, sputum cx neg
- Likely aspiration PNA caused fevers, Unasyn started
-Also noted is chronic pancreatitis on the CT scan.
As per patient's son, patient used to drink up to 12 beers a day previously, about 2 years ago she used to drink about 3 beers daily and now it is only social.
Significant smoking history.
Reviewed with patient's daughter and son that as outpatient, she will need MRI to evaluate the pancreas. This could explain epigastric pain and some weight loss that she experienced.
Will follow for now
Assessment / Plan
-
Pt is a 79yo Cypriot speaking female with hx CVA, mild dementia, depression, GERD with chronic pepcid use, PAD with prior arteriogram on chronic ASA and Plavix , thrombocytosis, tobacco abuse, prior appe with onset of epigastric pain since last
week. She was seen in ER 10/20 with initial vomiting with symptoms. She has a leukocytosis with WBC 13.5, mild PRERNA with a creatinine of 1.4.with normal LFT's. Ct completed prior to admission byut PCP noted with Distended gallbladder which could
be benign gallbladder hydrops but cannot exclude cholecystitis�recommended follow-up ultrasound. She also has large amount of fecal material in the rectum concerning for fecal impaction. air in uterus. Follow up limited US with No sonographic
evidence for cholelithiasis or acute cholecystitis. She was given enema with improvement and discharged. She continued with abdominal pain and was referred back to ER. She has had wt loss and noted with black heme + stool and on return hbg drop
for initial 10 to 6.3 with concern for GI bleed. She has had about 10 + lb wt loss in 2 years and vomiting clear fluid last weeks with prior constipation and some continued loose black stools after admission. No hx EGD or colonoscopy in past. Pt
with hx prior anemia with hbg 10- 11 range on chronic iron prior to admission.
-melena
-anemia with drop in hbg after admission
-epigastric pain
-recent constipation
-CT with distention- benign GB hydrops f/u US without cholelithiasis or acute cholecystitis
-PAD on chronic ASA and Plavix
-leukocytosis
-PRERNA
-GERD with chronic Pepcid use
other med problems:
-thrombocytosis
-mild dementia
-depression
-hx CVA
-appe
-tobacco abuse
Impression: - No gross lesions in the entire esophagus.
- Red blood in the entire stomach. Fluid aspiration
performed.
- Non-obstructing oozing gastric ulcer with pigmented
material. Injected. Clips were placed.
CT scan A/P-1. Endoscopy clips located along the lesser curvature of the gastric body and small ulceration in the lateral greater curvature of the stomach. Mild gastric distention with fluid and air. No CT evidence for full-thickness ulcer
perforation, pneumoperitoneum, or perigastric fluid collection.
2. NEW LARGE DENSE LEFT LOWER LOBE AIRSPACE CONSOLIDATION consistent with postobstructive atelectasis (possibly pneumonia) secondary to endobronchial obstruction of the left lower lobe bronchus with mucous plugging.
3. New endobronchial obstruction in the posterior basilar segment of the right lower lobe and small right lower lobe airspace consolidation.
4. Minimal bilateral pleural effusions.
5. Severe calcific atherosclerotic plaque in the thoracic and abdominal aorta.
6. Polycystic kidney disease.
7. Mild intrahepatic and extrahepatic biliary dilatation.
8. Severe gallbladder distention.
9. Chronic pancreatitis.
10. Severe colonic diverticulosis.
11. Small volume ascites in the pelvis and right paracolic gutter.
Recommendation:
No further bleeding at this time, hemoglobin seems to be stable
Currently extubated, BUN trending down.
Will switch protonix to 40mg iv bod and OK to change to po at discharge.
H&H stable after 3 units of PRBC transfusion 10/23/2024
Repeat endoscopy showing gastric ulcer without any stigmata of bleeding, also noted was pyloric stenosis, status post balloon dilation.
Currently on clear liquid diet, okay to advance to full liquid diet and if tolerates okay, low residue and low-fat diet.
Repeat EGD in 8 weeks to check healing of the gastric ulcer and the biopsy for H. pylori.
Avoid NSAIDs.
Okay to start aspirin/Plavix 10/29/2024
No fevers today, Blood cx, sputum cx neg
- Likely aspiration PNA caused fevers, Unasyn started
-Also noted is chronic pancreatitis on the CT scan.
As per patient's son, patient used to drink up to 12 beers a day previously, about 2 years ago she used to drink about 3 beers daily and now it is only social.
Significant smoking history.
Reviewed with patient's daughter and son that as outpatient, she will need MRI to evaluate the pancreas. This could explain epigastric pain and some weight loss that she experienced.
Will follow for now
Subjective
Subjective
Date of Service: October 26, 2024
Patient without any evidence of further bleeding, smear of dark stool. Currently extubated
Objective
Data Reviewed
Laboratory Data:
Laboratory Results
10/26/24 03:51
10/26/24 03:51
Laboratory Results
Phosphorus 3.7 mg/dl (2.5-4.5) 10/25/24 05:02
Magnesium 1.9 mg/dl (1.6-2.3) 10/25/24 05:02
Total Bilirubin 0.5 mg/dl (0.2-1.3) 10/23/24 18:43
AST 14 U/L (14-36) 10/23/24 18:43
ALT < 10 U/L (0-35) 10/23/24 18:43
Alkaline Phosphatase 36 U/L (38-126) L 10/23/24 18:43
Lipase 202 U/L (23-300) 10/22/24 23:38
Vital Signs and I&O:
Vital Signs
Temp Pulse Resp BP Pulse Ox
98.7 F 89 18 167/66 92
10/26/24 15:41 10/26/24 15:49 10/26/24 15:49 10/26/24 15:49 10/26/24 15:49
I&O
10/25/24 10/26/24 10/27/24
06:59 06:59 06:59
Intake Total 2220.6 / 2417.7 2876.9 / 3356.9 850 / 850
Output Total 720 / 745 595 / 700 990 / 990
Balance 1500.6 / 1672.7 2281.9 / 2656.9 -140 / -140
Physical Exam
Physical Exam
GI: Soft, Non Distended and Non Tender
[2024-10-26] MEDS: NSS (PRESERVATIVE FREE) 10 ML IV (20:22)
[2024-10-26] MEDS: PROTONIX IV 40 MG IV (20:22)
[2024-10-27 06:01] LABS: Hematocrit 24.7 % (37.0-47.0); Hemoglobin 8.8 g/dL (12.0-16.0); Mean Corp Hgb Conc. 35.6 g/dL (33.0-37.0); Mean Corpuscular Hgb 28.9 pg (27.0-31.0); Mean Platelet Volume 10.5 fL (7.4-10.4); Platelet Count 288 10^3/uL (130-400); Red Blood Cell Count 3.05 10^6/uL (4.20-5.40); Red Cell Dist. Width 16.3 % (11.5-14.5); White Blood Cell Count 18.5 10^3/uL (4.8-10.8)
[2024-10-27 06:16] LABS: Blood Urea Nitrogen 16 mg/dl (7-17); Carbon Dioxide 22 mmol/L (22-30); Chloride 119 mmol/L (98-107); Estimated Creatinine Clearance 30 ml/min; Glucose 89 mg/dl (70-99); Potassium 3.7 mmol/L (3.5-5.1); Sodium 142 mmol/L (135-145); eGFR > 60.00
--- NOTE | 2024-10-27 06:30 | W.PN.UPDATE ---
Update Note
Progress Note Update
message sent to office to call daughter to arrange 3-4 week office follow up with Dr. Steve or ИВАН
[2024-10-27] MEDS: SODIUM CHLORIDE 3% FOR INHALATION 1 VIAL INH ×2 (07:29→19:43)
[2024-10-27] MEDS: DUONEB 3 ML INH (07:29)
[2024-10-27] MEDS: SODIUM BICARBONATE 650 MG PO (07:42)
[2024-10-27] MEDS: CYANOCOBALAMIN 1000 MCG IM (07:42)
[2024-10-27] MEDS: VITAMIN D3 (cholecalciferol) 25 MCG PO (07:42)
[2024-10-27] MEDS: PROTONIX IV 40 MG IV ×2 (07:43→20:49)
[2024-10-27] MEDS: FEOSOL 325 MG PO (07:43)
[2024-10-27] MEDS: NSS (PRESERVATIVE FREE) 10 ML IV ×2 (07:43→20:49)
[2024-10-27] MEDS: NORVASC 5 MG PO (07:46)
[2024-10-27] MEDS: TOPROL XL 25 MG PO ×2 (07:47→14:14)
--- NOTE | 2024-10-27 08:15 | W.PN.PUL3 ---
Today's Communication / Plan
-
- Albuterol and 3% saline nebulized twice a day, discontinue DuoNeb
- Add Mucinex 600 mg p.o. twice daily
- Continue total 10 days of antibiotics, outpatient follow-up with pulmonary clinic
- Pulmonary service will sign off, please call as needed
Assessment
-
79-year-old female with a past medical history of CVA, PAD and depression who presents with abdominal pain, constipation, low blood pressure and blood found in stool. Family reportedly tested her blood pressure and it was low in the 70s/40s. She
has been having upper abdominal pain since Saturday (past 1 week). She has not been eating or drinking for the last several days. She was here in the ER on 10/20/2024 for abdominal pain after eating fried fish, which led to vomiting x 1. CT
abdomen/pelvis at the time showed fecal impaction with diverticulosis and suspected hydrops gallbladder. Abdominal ultrasound showed no evidence for cholelithiasis or cholecystitis. Currently in the ER, she was afebrile to 98.4 �F, pulse rate 69,
respiratory rate 16, BP 122/94 and saturating 99% on room air. Labs significant for Hb of 10, WBC initially 15.1, platelet count 608, creatinine 1.4, BUN 37, and calcium 10.6. Patient developed upper abdominal pain and Hb dropped to 6.3 on CBC
from today (10/23), and patient's been having black stool. GI consulted who recommended an EGD. EGD performed showing large amount of red blood in the entire stomach with 1 L suctioned, with a nonobstructing oozing cratered gastric ulcer on the
greater curvature of the gastric body which was injected with epinephrine, cauterized with no active bleeding during the procedure and then 3 hemostatic clips placed. Patient then started vomiting and required intubation for airway protection.
Patient transferred to the ICU for further care and Health Economist services consulted for additional management/recommendations.
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
Assessment and plan:
#1. Left lower lobe pneumonia with mucus impaction of left lower lobe bronchus
-Sputum culture growing Staph aureus (MSSA) and haemophilus, continue Unasyn for now, eventually Augmentin. Rec 10 days of antibiotics therapy with MSSA.
-Continue airway clearance with hypertonic saline, avoid anticholinergics and discontinue ipratropium. Add albuterol in addition to hypertonic saline, scheduled BID. Started Mucinex.
-Currently on room air
-Patient will need follow-up imaging in 6-8 weeks to ensure full expansion of left lower lobe, out patient follow up with Pulmonary clinic.
#2. History of smoking.
- Long standing smoking history, at times 2 PPD. Might have underlying obstructive airway disease
- will pursue PFTs as out patient.
Other medical diagnoses:
- Acute upper gastrointestinal hemorrhage with melena due to gastric ulcer s/p epinephrine injection, cauterization and clipping x 3
Repeat EGD 10/25/2024: No evidence for active bleeding.
- Acute respiratory failure with hypoxia, intubated for airway protection in view of GI bleed, extubated
- Acute blood loss anemia
- Iron deficiency anemia
- Hypoalbuminemia
- Distended gallbladder with suspected hydrops gallbladder (abdominal US negative for cholelithiasis or acute cholecystitis)
- Numerous bilateral renal cysts with suspected polycystic kidney disease
Total time spent on this consultation/encounter _46___ minutes which includes review of history, physical exam, medications, laboratory data, personal review of imaging, extensive review of outpatient records, discussion with care team and
respiratory therapy.
Subjective Data
-
Date of Service:
Date of Service: October 27, 2024
Subjective:
Patient comfortably lying in bed, on room air, no shortness of breath.
Review of Systems
Genitourinary: Other (No reported cough, expectoration or wheezing.)
Objective Data
Data Reviewed
Vital Signs / I&O / Oxygen:
Vital Signs
Temp Pulse Resp BP Pulse Ox
99.7 F 84 17 152/73 93
10/26/24 23:29 10/27/24 07:47 10/27/24 07:32 10/27/24 07:47 10/27/24 07:32
Intake and Output
10/26/24 10/27/24 10/28/24
06:59 06:59 06:59
Intake Total 2876.9 / 3356.9 970 / 970
Output Total 595 / 700 990 / 990
Balance 2281.9 / 2656.9 -20 / -20
SaO2 [CPAP/PSV] 94
SaO2 [A/C] 97
SaO2 93
Nasal Cannula flow liters per 2
minute
Physical Exam
General: Comfortable
HEENT: Normocephalic
Cardiovascular: S1-S2
Respiratory: Clear and Non-Labored Respirations
GI: Soft and Non Distended
Neurology: Awake and Alert
Skin: Warm
Labs/Micro/Reports
Lab Data
10/27/24 05:37
10/27/24 05:37
Microbiology
10/24/24 09:26 Endotracheal Respiratory Culture - Preliminary
Staphylococcus aureus
Haemophilus influenzae
10/24/24 09:26 Endotracheal Gram Stain - Preliminary
10/23/24 17:37 Urine Urine Culture - Final
Diptheroids
10/24/24 10:57 Blood/Venous Blood Culture - Preliminary
No Growth in 48 hours- Final report to follow
10/24/24 10:42 Blood/Venous Blood Culture - Preliminary
No Growth in 48 hours- Final report to follow
10/25/24 15:27 Urine Legionella Urinary Antigen - Final
Negative for Legionella pneumophila Serogroup 1 antigen.
A negative result does not rule out the possiblity of
Legionella infection due to other serogroups or species of
Legionella. Clinical correlation is recommended.
10/25/24 15:27 Urine Streptococcus pneumoniae Antigen (M - Final
Negative for Streptococcus pneumoniae antigen.
A negative result does not exclude infection with
Streptococcus pneumoniae. Clinical correlation is
recommended.
--- NOTE | 2024-10-27 08:36 | VATNOTE ---
During routine rounds midline dressing noted to be saturated with serous drainage. Redressed at this time, however, pt very uncooperative. Pt family at the bedside holding her arm and talking her through the process. Offered comforting words and
attempted to decrease stimulation. Will continue to monitor midline dressing closely.
[2024-10-27] MEDS: MUCINEX 600 MG PO (08:58)
[2024-10-27 10:48] LABS: Vitamin D, 25-OH*** 45.3 ng/mL (30-80)
[2024-10-27] MEDS: VENTOLIN NEBULES INH (11:19)
--- NOTE | 2024-10-27 11:35 | W.PN.GI.CBS2 ---
Today's Communication / Plan
-
advance diet, monitor for si/sx bleeding
Assessment / Plan
-
Pt is a 79yo Vietnamese speaking female with hx CVA on plavix/ASA, mild dementia, depression, GERD with chronic pepcid use, PAD with prior arteriogram on chronic ASA and Plavix, p/w massive UGIB s/p EGD Dr. Steve 10/23 with blood, oozing ulcer treated
with injection, clip, bicap; repeat EGD 10/25 Dr. Steve ulcer no bleeding and gastric stenosis at pylorus which was dilated. Course c/b aspiration PNA. Also found incidentally to have chronic panc on CT history of remote EtOH.
Recommendations:
- IV PPI BID
- adv low residue diet
- Repeat EGD [address] Steve
- MRI outpatient evaluate pancreas
- per Dr. Steve resume ASA/plavix 10/29
- aspiration PNA on abx
- question etiology of ulcer - only NSAID ASA will need evaluation for HP outpatient
- primary team ordered CDI as well
Subjective
Subjective
Date of Service: October 27, 2024
no events
Objective
Data Reviewed
Laboratory Data:
Laboratory Results
10/27/24 05:37
10/27/24 05:37
Laboratory Results
Phosphorus 3.7 mg/dl (2.5-4.5) 10/25/24 05:02
Magnesium 1.9 mg/dl (1.6-2.3) 10/25/24 05:02
Total Bilirubin 0.5 mg/dl (0.2-1.3) 10/23/24 18:43
AST 14 U/L (14-36) 10/23/24 18:43
ALT < 10 U/L (0-35) 10/23/24 18:43
Alkaline Phosphatase 36 U/L (38-126) L 10/23/24 18:43
Lipase 202 U/L (23-300) 10/22/24 23:38
Vital Signs and I&O:
Vital Signs
Temp Pulse Resp BP Pulse Ox
99.1 F 92 12 152/73 93
10/27/24 08:58 10/27/24 08:58 10/27/24 08:58 10/27/24 07:47 10/27/24 08:58
I&O
10/26/24 10/27/24 10/28/24
06:59 06:59 06:59
Intake Total 2876.9 / 3356.9 970 / 970
Output Total 595 / 700 1540 / 1540
Balance 2281.9 / 2656.9 -570 / -570
Physical Exam
Physical Exam
GI: Non Distended and Non Tender
[2024-10-27] MEDS: UNASYN IV (12:13)
--- NOTE | 2024-10-27 14:02 | W.PN.HOSP.TC ---
Today's Communication/Plan
-
metoprolol 25 mg now and start 50 mg tomorrow
Ensure
Encourage OOB
Antibiotics
Discharge planning
Assessment / Plan
Assessment / Plan
79-year-old with epigastric pain since Saturday. Vomited once on Saturday has not been able to eat or drink much for the past few days. Patient was evaluated in the ER and was discharged with MiraLAX as she was found to have constipation. She also
had heme positive stools in PCP office as well as in the ER
10/20/2024-ultrasound of the abdomen-no evidence of cholelithiasis or acute cholecystitis
CAT scan of the abdomen and pelvis-10/20/2024-distended gallbladder. May be gallbladder hydrops. Acute cholecystitis cannot be excluded. Large amount of fecal material in the rectum concerning for fecal impaction. Diverticulosis, numerous
bilateral renal cysts suggesting polycystic kidney disease-stable. Air in the uterus stable etiology unknown but likely insignificant considering prison stability
CT abdomen and pelvis 10/24/2024-endoscopic clips in the lesser curvature of the gastric body and a small ulceration in the lateral curvature of the stomach mild gastric distention with fluid and air no evidence of perforation.
New large dense left lower lobe airspace consolidation with postobstructive atelectasis secondary to endobronchial obstruction of the left lower lobe bronchus with mucous plugging. No endobronchial obstruction with basilar segment right lower lobe.
Severe calcific atherosclerotic plaque in the thoracic and abdominal aorta. Polycystic kidney disease. Mild intrahepatic and extrahepatic biliary dilatation. Severe gallbladder distention. Chronic pancreatitis. Severe colonic diverticulosis.
Small volume ascites. Severe discogenic DJD L5-S1. Grade 1 anterolisthesis L4-L5. Chronic fractures T12
On examination patient is awake and alert extubated
Cardiovascular system S1-S2 appreciated
Chest clear to auscultation
Abdomen soft and nontender
No pedal edema
# Epigastric pain/anemia/heme positive stools/melena secondary to gastric Ulceration
# Bleeding gastric ulceration status post EGD and epinephrine injection. Failed attempts at hemostatic clips noted.
#Acute blood loss anemia secondary to GI bleed status post 2 units of transfusion
#History of DAPT use for at least 5 years for history of recurrent strokes and PAD status post PCI
Continue to trend hemoglobin-stable
S/P Rpt EGD 10/25/24- One non-bleeding superficial gastric ulcer with no stigmata of bleeding was found on the lesser curvature of the gastric body.Bilious gastric fluid,Gastric stenosis at Pylorus dilated.
Rpt EGD in 8 weeks
On PPI BID
LR diet started
#Diarrhea- C diff ordered with elevated white count.
# Vent dependent respiratory failure
Patient intubated at the time of EGD due to significant bleeding.
Chest x-ray yesterday also showed complete opacification of left lung suggestive of atelectasis.
Patient extubated
# H Influenaza pneumonia also MSSA
Change AB to Ceftriaxone
# Leukocytosis-
# Fever- concern if there is any aspirational issue with hematemesis. Abdominal CT done for GI indication showed new large dense left lower lobe airspace consolidation also new endobronchial obstruction in the posterior basilar segment of the
right lower lobe and small right lower lobe airspace consolidation all concerning for aspiration pneumonia.
Ceftriaxone
# PRERNA-likely secondary to hypovolemia/blood loss
Also contrast-induced nephropathy
Follow creatinine
Improved.
Staright cath for retention.
#Hypokalemia-replete
#Metabolic acidosis with normal anion gap
VBG shows pH of 7.27
Unclear if still related to renal insufficiency.
Resolved
# Acute on chronic anemia secondary to acute blood loss and iron deficiency
Transfused 2 unit of blood.
Iron supplementation
# B12 deficiency-replace IM
# Mild intrahepatic and extrahepatic biliary dilatation and severe gallbladder distention--MRI as outpatient. LFTs are normal
# Hypertension- amlodipine and restart metoprolol 50 mg daily dose.
# History of CVA- ASA and plavix in 2 days per D/W GI yesterday
# Depression-continue sertraline
# Polycystic kidney disease according to CT
# Hyperlipidemia/atherosclerosis-continue statin. Restart aspirin pllavix 2 days
# Cognitive impairment
# Diverticulosis
# Chronic pancreatitis per CT-patient needs MRI of the pancreas as outpatient
Per GI notes patient used to drink up to 12 beers a day previously and about 2 years ago she used to drink 3 beers a day and now it is only socially.
# Chronic fracture of T12 treated with vertebroplasty/grade 1 anterolisthesis L4 on L5/severe discogenic DJD L5-S1
# Smoker-cessation counseling
# DVT prophylaxis-SCDs
# Full code
D/W RN at bedside
D/W GI
D/W Pulm
D/W Daughter at bed side
Daughter aware PT recommending SNF
POA daughter to decide if she still wants to take her home
Poor PO intake, added Ensure
Part of this note was created using voice recognition system. Occasional wrong word or��sound alike� substitutions may have inadvertently occurred due to the inherent limitations of voice recognition software. If noted kindly bring it to my
attention for correction.
Anticipated Discharge: Within 24 hours
Subjective/Interval History
-
Date of Service: October 27, 2024
Objective Data
-
Labs:
Laboratory Results
10/27/24
05:37
WBC 18.5 H
Hgb 8.8 L
Hct 24.7 L
Plt Count 288 D
Sodium 142
Potassium 3.7
Chloride 119 H
Carbon Dioxide 22
BUN 16
Creatinine 0.9
Glucose 89
Calcium 8.0 L
Vital Signs:
Vital Signs
Temp Pulse Resp BP Pulse Ox
99.1 F 92 12 152/73 93
10/27/24 08:58 10/27/24 08:58 10/27/24 08:58 10/27/24 07:47 06/17/25 08:58
I&O
10/26/24 10/27/24 10/28/24
06:59 06:59 06:59
Intake Total 2876.9 / 3356.9 970 / 970
Output Total 595 / 700 1540 / 1540
Balance 2281.9 / 2656.9 -570 / -570
[2024-10-27] MEDS: ROCEPHIN 1000 MG IV (14:13)
[2024-10-27] MEDS: STERILE WATER FOR INJECTION 10 ML IV (14:13)
--- NOTE | 2024-10-27 16:39 | CM ---
CM continues to follow for discharge planning. Pt was evaluated by PT and OT with recommendation for transfer to SNF.
Will need to discuss recommendation with pt/family to determine discharge plan.
CM to follow up tomorrow.
[2024-10-27] MEDS: LIPITOR 80 MG PO (17:37)
[2024-10-27] MEDS: VENTOLIN NEBULES 2.5 MG INH (19:43)
[2024-10-27] MEDS: MUCINEX PO ×2 (20:49→20:55)
[2024-10-27 23:35] VITALS: BP 113/60
--- NOTE | 2024-10-28 04:48 | DOWNTIME ---
Addendum entered by Bull Trevizo RN 10/28/24 14:12:
Correction to downtime 10/28/2024 from 0100 to 10/28/24 at 0415.
Original Note:
There was a [employer] Downtime on 10/27/2024 from 0100 to 10/28/2024 at 0415. Downtime documentation of patient's care, including medication administrations, has been reconciled in the electronic record per guidelines. Refer to the
patient's paper chart under the miscellaneous tab to see printed paper medication records and downtime forms.
[2024-10-28 05:34] LABS: Hematocrit 28.1 % (37.0-47.0); Hemoglobin 9.5 g/dL (12.0-16.0); Mean Corp Hgb Conc. 33.8 g/dL (33.0-37.0); Mean Corpuscular Hgb 27.9 pg (27.0-31.0); Mean Corpuscular Volume 82.4 fL (81.0-99.0); Mean Platelet Volume 10.2 fL (7.4-10.4); Platelet Count 344 10^3/uL (130-400); Red Blood Cell Count 3.41 10^6/uL (4.20-5.40); Red Cell Dist. Width 16.2 % (11.5-14.5); White Blood Cell Count 16.6 10^3/uL (4.8-10.8)
[2024-10-28 06:46] LABS: Blood Urea Nitrogen 14 mg/dl (7-17); Calcium 8.2 mg/dl (8.4-10.2); Carbon Dioxide 23 mmol/L (22-30); Chloride 111 mmol/L (98-107); Estimated Creatinine Clearance 33 ml/min; Glucose 62 mg/dl (70-99); Potassium 3.6 mmol/L (3.5-5.1); Sodium 141 mmol/L (135-145); eGFR > 60.00
[2024-10-28 07:00] VITALS: BP 172/69
[2024-10-28] MEDS: VENTOLIN NEBULES 2.5 MG INH (07:47)
[2024-10-28] MEDS: SODIUM CHLORIDE 3% FOR INHALATION 1 VIAL INH (07:47)
--- NOTE | 2024-10-28 09:02 | PN.CDI ---
CDI
- -
CDI:
Physician Documentation Request
Admit Date: 10/22/24 20:11
Dear Doctor Jn,
Please review the following and provide your response in the progress notes.
Clinical Indicators:
Height: 4'10
Weight: 81 lbs
BMI: 17.1
Other Clinical Notes: Hook Up Driver note indicates underweight
If possible, please provide an associated diagnosis related to the abnormal BMI, such as:
Underweight
Cachectic
Other (please specify)
Use of terms such as suspected, likely, concern for, or probable (associated with a specific diagnosis that is being evaluated, monitored, or treated as if it exists) are acceptable and can be coded in the inpatient setting, when documented at the
time of discharge.
Thank you,
Venkat Velázquez RN
CDI Specialist
Please use your independent medical judgment in providing your response.
[2024-10-28] MEDS: VITAMIN D3 (cholecalciferol) 25 MCG PO (09:10)
[2024-10-28] MEDS: TOPROL XL 50 MG PO (09:10)
[2024-10-28] MEDS: NORVASC 5 MG PO (09:10)
[2024-10-28] MEDS: FEOSOL 325 MG PO (09:10)
[2024-10-28] MEDS: MUCINEX 600 MG PO (09:10)
[2024-10-28] MEDS: CYANOCOBALAMIN 1000 MCG IM (09:11)
[2024-10-28] MEDS: PROTONIX IV 40 MG IV ×2 (09:14→20:17)
[2024-10-28] MEDS: NSS (PRESERVATIVE FREE) 10 ML IV ×2 (09:14→20:17)
[2024-10-28 12:29] VITALS: BP 131/46; PULSE 62; O2SAT 97
[2024-10-28 12:30] VITALS: BP 131/46; PULSE 63; O2SAT 96
--- NOTE | 2024-10-28 13:08 | W.PN.GI.CBS2 ---
Today's Communication / Plan
-
outpatient gi follow up, resume plavix/asa tmwr, gi signing off
Assessment / Plan
-
Pt is a 79yo Maltese speaking female with hx CVA on plavix/ASA, mild dementia, depression, GERD with chronic pepcid use, PAD with prior arteriogram on chronic ASA and Plavix, p/w massive UGIB s/p EGD Dr. Steve 10/23 with blood, oozing ulcer treated
with injection, clip, bicap; repeat EGD 10/25 Dr. Steve ulcer no bleeding and gastric stenosis at pylorus which was dilated. Course c/b aspiration PNA. Also found incidentally to have chronic panc on CT history of remote EtOH.
Recommendations:
- IV PPI BID - switch to po on d/c, continue ppi bid until repeat EGD
- low residue diet
- Repeat EGD [address] Steve
- MRI outpatient evaluate pancreas
- per Dr. Steve resume ASA/plavix 10/29
- aspiration PNA on abx
- question etiology of ulcer - only NSAID ASA will need evaluation for HP outpatient
- recommend outpatient GI follow up
GI will sign off pls call with ?s
Subjective
Subjective
Date of Service: October 28, 2024
stools still dark no pain
Objective
Data Reviewed
Laboratory Data:
Laboratory Results
10/28/24 05:25
10/28/24 05:25
Laboratory Results
Phosphorus 3.7 mg/dl (2.5-4.5) 10/25/24 05:02
Magnesium 1.9 mg/dl (1.6-2.3) 10/25/24 05:02
Total Bilirubin 0.5 mg/dl (0.2-1.3) 10/23/24 18:43
AST 14 U/L (14-36) 10/23/24 18:43
ALT < 10 U/L (0-35) 10/23/24 18:43
Alkaline Phosphatase 36 U/L (38-126) L 10/23/24 18:43
Lipase 202 U/L (23-300) 10/22/24 23:38
Vital Signs and I&O:
Vital Signs
Temp Pulse Resp BP Pulse Ox
99.0 F 58 16 172/69 98
10/28/24 07:00 10/28/24 07:50 10/28/24 07:50 10/28/24 07:00 10/28/24 07:50
I&O
10/27/24 10/28/24 10/29/24
06:59 06:59 06:59
Intake Total 970 / 970 130 / 130
Output Total 1540 / 1540
Balance -570 / -570 130 / 130
Physical Exam
Physical Exam
GI: Non Distended and Non Tender
[2024-10-28] MEDS: ROCEPHIN 1000 MG IV (13:21)
[2024-10-28] MEDS: STERILE WATER FOR INJECTION 10 ML IV (13:22)
[2024-10-28 15:00] VITALS: BP 140/58
--- NOTE | 2024-10-28 16:04 | VNURNOTE ---
Home Health Liaison met with patient and daughter at bedside to discuss [facility] nurse/therapy, visits, schedule and homebound status. Patient was dozing in bed. Daughter is agreeable and understands that visits at home will be 2-3 x per week to assess
and teach medical management. Daughter is aware that [facility] will contact them for start of care in 1-2 days after discharge from .
[facility] referral completed in [facility].
--- NOTE | 2024-10-28 16:18 | W.PN.HOSP.TC ---
Addendum entered and electronically signed by Matt Ragsdale MD 10/29/24 07:32:
underweight
Original Note:
Today's Communication/Plan
-
Encourage out of bed to chair twice a day
Encourage p.o. intake
Encourage supplements
Megace added
DVT prophylaxis with Lovenox
Assessment / Plan
Assessment / Plan
79-year-old with epigastric pain since Saturday. Vomited once on Saturday has not been able to eat or drink much for the past few days. Patient was evaluated in the ER and was discharged with MiraLAX as she was found to have constipation. She also
had heme positive stools in PCP office as well as in the ER
10/20/2024-ultrasound of the abdomen-no evidence of cholelithiasis or acute cholecystitis
CAT scan of the abdomen and pelvis-10/20/2024-distended gallbladder. May be gallbladder hydrops. Acute cholecystitis cannot be excluded. Large amount of fecal material in the rectum concerning for fecal impaction. Diverticulosis, numerous
bilateral renal cysts suggesting polycystic kidney disease-stable. 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
CT abdomen and pelvis 10/24/2024-endoscopic clips in the lesser curvature of the gastric body and a small ulceration in the lateral curvature of the stomach mild gastric distention with fluid and air no evidence of perforation.
New large dense left lower lobe airspace consolidation with postobstructive atelectasis secondary to endobronchial obstruction of the left lower lobe bronchus with mucous plugging. No endobronchial obstruction with basilar segment right lower lobe.
Severe calcific atherosclerotic plaque in the thoracic and abdominal aorta. Polycystic kidney disease. Mild intrahepatic and extrahepatic biliary dilatation. Severe gallbladder distention. Chronic pancreatitis. Severe colonic diverticulosis.
Small volume ascites. Severe discogenic DJD L5-S1. Grade 1 anterolisthesis L4-L5. Chronic fractures T12
On examination patient is awake and alert extubated
Cardiovascular system S1-S2 appreciated
Chest clear to auscultation
Abdomen soft and nontender
No pedal edema
# Epigastric pain/anemia/heme positive stools/melena secondary to gastric Ulceration
#Acute blood loss anemia secondary to GI bleed status post 2 units of transfusion
# Bleeding gastric ulceration status post EGD 10/23/24 and epinephrine injection. Failed attempts at hemostatic clips noted.
S/P Rpt EGD 10/25/24- One non-bleeding superficial gastric ulcer with no stigmata of bleeding was found on the lesser curvature of the gastric body.Bilious gastric fluid,Gastric stenosis at Pylorus dilated.
Rpt EGD in 8 weeks as OP
On PPI BID
LR diet started
# Poor appetite
Moderate protein calorie malnutrition
Refusing dietary supplements
Megace added
#Diarrhea- C diff negative. Add probiotics
# Vent dependent respiratory failure
Patient intubated at the time of EGD due to significant bleeding.
Chest x-ray yesterday also showed complete opacification of left lung suggestive of atelectasis.
Patient extubated
# H Influenza pneumonia also MSSA
Change AB to Ceftriaxone
# Leukocytosis-
# Fever- concern if there is any aspirational issue with hematemesis. Abdominal CT done for GI indication showed new large dense left lower lobe airspace consolidation also new endobronchial obstruction in the posterior basilar segment of the
right lower lobe and small right lower lobe airspace consolidation all concerning for aspiration pneumonia.
Ceftriaxone
# PRERNA-likely secondary to hypovolemia/blood loss
Also contrast-induced nephropathy
Follow creatinine
Improved.
Staright cath for retention.
#Hypokalemia-repleted
#Metabolic acidosis with normal anion gap
VBG shows pH of 7.27
Unclear if still related to renal insufficiency.
Resolved
# Acute on chronic anemia secondary to acute blood loss and iron deficiency
Transfused 2 unit of blood.
Iron supplementation
# B12 deficiency-replace IM
# Mild intrahepatic and extrahepatic biliary dilatation and severe gallbladder distention--MRI as outpatient. LFTs are normal
# Hypertension-continue amlodipine and metoprolol 50 mg daily dose.
# History of CVA- ASA and Plavix at discharge
# Depression-continue sertraline
# Polycystic kidney disease according to CT
# Hyperlipidemia/atherosclerosis-continue statin. Restart aspirin plavix at discharge
# Cognitive impairment
# Diverticulosis
# Chronic pancreatitis per CT-patient needs MRI of the pancreas as outpatient
Per GI notes patient used to drink up to 12 beers a day previously and about 2 years ago she used to drink 3 beers a day and now it is only socially.
# Chronic fracture of T12 treated with vertebroplasty/grade 1 anterolisthesis L4 on L5/severe discogenic DJD L5-S1
# Smoker-cessation counseling
# DVT prophylaxis-Lovenox
# Full code
D/W RN at bedside
D/W GI
Discussed with dietitian
D/W Daughter at bed side
Daughter aware PT recommending SNF
POA daughter at bedside she does not want patient to go to rehab
Discussed about possibility of discharge tomorrow
Part of this note was created using voice recognition system. Occasional wrong word or��sound alike� substitutions may have inadvertently occurred due to the inherent limitations of voice recognition software. If noted kindly bring it to my
attention for correction.
Anticipated Discharge: Within 24 hours
Subjective/Interval History
-
Date of Service: October 28, 2024
Objective Data
-
Labs:
Laboratory Results
10/28/24
05:25
WBC 16.6 H
Hgb 9.5 L
Hct 28.1 L
Plt Count 344
Sodium 141
Potassium 3.6
Chloride 111 H
Carbon Dioxide 23
BUN 14
Creatinine 0.8
Glucose 62 L
Calcium 8.2 L
Vital Signs:
Vital Signs
Temp Pulse Resp BP Pulse Ox
99.3 F 66 16 140/58 98
10/28/24 15:00 10/28/24 15:00 10/28/24 15:00 10/28/24 15:00 10/28/24 15:00
I&O
10/27/24 10/28/24 10/29/24
06:59 06:59 06:59
Intake Total 970 / 970 130 / 130
Output Total 1540 / 1540
Balance -570 / -570 130 / 130
[2024-10-28] MEDS: MEGACE 20 MG PO (17:25)
[2024-10-28] MEDS: ZOLOFT 25 MG PO (17:26)
[2024-10-28] MEDS: LOVENOX 40 MG SC (17:26)
[2024-10-28] MEDS: LIPITOR 80 MG PO (17:26)
[2024-10-28] MEDS: FLORASTOR 250 MG PO (17:26)
[2024-10-28] MEDS: VENTOLIN NEBULES INH (20:20)
[2024-10-28] MEDS: SODIUM CHLORIDE 3% FOR INHALATION INH (20:20)
[2024-10-28 23:35] VITALS: BP 175/59
[2024-10-29 07:00] VITALS: BP 149/58
[2024-10-29] MEDS: VENTOLIN NEBULES 2.5 MG INH (07:45)
[2024-10-29] MEDS: SODIUM CHLORIDE 3% FOR INHALATION 1 VIAL INH (07:45)
[2024-10-29 08:28] LABS: Hematocrit 26.7 % (37.0-47.0); Hemoglobin 9.1 g/dL (12.0-16.0); Mean Corp Hgb Conc. 34.1 g/dL (33.0-37.0); Mean Corpuscular Hgb 28.2 pg (27.0-31.0); Mean Corpuscular Volume 82.7 fL (81.0-99.0); Mean Platelet Volume 10.2 fL (7.4-10.4); Platelet Count 416 10^3/uL (130-400); Red Blood Cell Count 3.23 10^6/uL (4.20-5.40); Red Cell Dist. Width 16.2 % (11.5-14.5); White Blood Cell Count 13.9 10^3/uL (4.8-10.8)
[2024-10-29 08:52] LABS: Blood Urea Nitrogen 14 mg/dl (7-17); Carbon Dioxide 19 mmol/L (22-30); Chloride 113 mmol/L (98-107); Estimated Creatinine Clearance 30 ml/min; Glucose 63 mg/dl (70-99); Potassium 3.4 mmol/L (3.5-5.1); Sodium 142 mmol/L (135-145); eGFR > 60.00
[2024-10-29] MEDS: PROTONIX IV 40 MG IV (10:10)
[2024-10-29] MEDS: NSS (PRESERVATIVE FREE) 10 ML IV (10:10)
[2024-10-29] MEDS: CYANOCOBALAMIN 1000 MCG IM (10:12)
[2024-10-29] MEDS: MEGACE 20 MG PO (10:12)
[2024-10-29] MEDS: FLORASTOR 250 MG PO (10:12)
[2024-10-29] MEDS: FEOSOL 325 MG PO (10:12)
[2024-10-29] MEDS: ZOLOFT 25 MG PO (10:12)
[2024-10-29] MEDS: NORVASC 5 MG PO (10:13)
[2024-10-29] MEDS: TOPROL XL 50 MG PO (10:13)
[2024-10-29] MEDS: VITAMIN D3 (cholecalciferol) 25 MCG PO (10:13)
[2024-10-29] MEDS: KCL 160 MEQ IV (10:53)
--- NOTE | 2024-10-29 12:25 | W.PN.HOSP.TC ---
Today's Communication/Plan
-
Discharge
Assessment / Plan
Assessment / Plan
79-year-old with epigastric pain since Saturday. Vomited once on Saturday has not been able to eat or drink much for the past few days. Patient was evaluated in the ER and was discharged with MiraLAX as she was found to have constipation. She also
had heme positive stools in PCP office as well as in the ER
10/20/2024-ultrasound of the abdomen-no evidence of cholelithiasis or acute cholecystitis
CAT scan of the abdomen and pelvis-10/20/2024-distended gallbladder. May be gallbladder hydrops. Acute cholecystitis cannot be excluded. Large amount of fecal material in the rectum concerning for fecal impaction. Diverticulosis, numerous
bilateral renal cysts suggesting polycystic kidney disease-stable. 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
CT abdomen and pelvis 10/24/2024-endoscopic clips in the lesser curvature of the gastric body and a small ulceration in the lateral curvature of the stomach mild gastric distention with fluid and air no evidence of perforation.
New large dense left lower lobe airspace consolidation with postobstructive atelectasis secondary to endobronchial obstruction of the left lower lobe bronchus with mucous plugging. No endobronchial obstruction with basilar segment right lower lobe.
Severe calcific atherosclerotic plaque in the thoracic and abdominal aorta. Polycystic kidney disease. Mild intrahepatic and extrahepatic biliary dilatation. Severe gallbladder distention. Chronic pancreatitis. Severe colonic diverticulosis.
Small volume ascites. Severe discogenic DJD L5-S1. Grade 1 anterolisthesis L4-L5. Chronic fractures T12
On examination patient is awake and alert
Cardiovascular system S1-S2 appreciated
Chest clear to auscultation
Abdomen soft and nontender
No pedal edema
# Epigastric pain/anemia/heme positive stools/melena secondary to gastric Ulceration
#Acute blood loss anemia secondary to GI bleed status post 2 units of transfusion
# Bleeding gastric ulceration status post EGD 10/23/24 and epinephrine injection. Failed attempts at hemostatic clips noted.
S/P Rpt EGD 10/25/24- One non-bleeding superficial gastric ulcer with no stigmata of bleeding was found on the lesser curvature of the gastric body.Bilious gastric fluid,Gastric stenosis at Pylorus dilated.
Rpt EGD in 8 weeks as OP
On PPI BID
LR diet started
appetite slightly better
# Poor appetite
Moderate protein calorie malnutrition
Megace added
#Diarrhea- C diff negative. Added probiotics
# Vent dependent respiratory failure
Patient intubated at the time of EGD due to significant bleeding.
Patient extubated
# H Influenza pneumonia also MSSA
Change AB to Ceftriaxone- change to Ceftin.
# Leukocytosis-
# Fever- concern if there is any aspirational issue with hematemesis. Abdominal CT done for GI indication showed new large dense left lower lobe airspace consolidation also new endobronchial obstruction in the posterior basilar segment of the
right lower lobe and small right lower lobe airspace consolidation all concerning for aspiration pneumonia.
Ceftriaxone
# PRERNA-likely secondary to hypovolemia/blood loss
Also contrast-induced nephropathy
Follow creatinine
Improved.
.
#Hypokalemia-replete
#Metabolic acidosis with normal anion gap
VBG shows pH of 7.27
Unclear if still related to renal insufficiency.
Resolved
# Acute on chronic anemia secondary to acute blood loss and iron deficiency
Transfused 2 unit of blood.
Iron supplementation
# B12 deficiency-replace IM
# Mild intrahepatic and extrahepatic biliary dilatation and severe gallbladder distention--MRI as outpatient. LFTs are normal
# Hypertension-continue amlodipine and metoprolol 50 mg daily dose.
# History of CVA- ASA and Plavix at discharge
# Depression-continue sertraline
# Polycystic kidney disease according to CT
# Hyperlipidemia/atherosclerosis-continue statin. Restart aspirin plavix at discharge
# Cognitive impairment
# Diverticulosis
# Chronic pancreatitis per CT-patient needs MRI of the pancreas as outpatient
Per GI notes patient used to drink up to 12 beers a day previously and about 2 years ago she used to drink 3 beers a day and now it is only socially.
# Chronic fracture of T12 treated with vertebroplasty/grade 1 anterolisthesis L4 on L5/severe discogenic DJD L5-S1
# Smoker-cessation counseling
# DVT prophylaxis-Lovenox
# Full code
D/W RN at bedside
D/W GI
D/W Daughter at bed side
Daughter aware PT recommending SNF
POA daughter at bedside she does not want patient to go to rehab
OK for discharge.
More than 30 minutes spent in discharge including
Final examination of the patient
Summarizing hospital stay
Instructions for continuing care to all relevant caregivers
Preparation of discharge records, prescriptions, and referral forms
Total time spent (in minutes):37 min
Part of this note was created using voice recognition system. Occasional wrong word or��sound alike� substitutions may have inadvertently occurred due to the inherent limitations of voice recognition software. If noted kindly bring it to my
attention for correction.
Anticipated Discharge: Today
Subjective/Interval History
-
Date of Service: October 29, 2024
Objective Data
-
Labs:
Laboratory Results
10/29/24
07:58
WBC 13.9 H
Hgb 9.1 L
Hct 26.7 L
Plt Count 416 H D
Sodium 142
Potassium 3.4 L
Chloride 113 H
Carbon Dioxide 19 L
BUN 14
Creatinine 0.9
Glucose 63 L
Calcium 8.0 L
Vital Signs:
Vital Signs
Temp Pulse Resp BP Pulse Ox
99.7 F 59 16 149/58 98
10/29/24 07:00 10/29/24 07:52 10/29/24 07:52 10/29/24 07:00 10/29/24 07:52
I&O
10/28/24 10/29/2410/30/25
06:59 06:59 06:59
Intake Total 130 / 130 200 / 200
Balance 130 / 130 200 / 200
--- NOTE | 2024-10-29 12:31 | W.DS.TRANS ---
Addendum entered and electronically signed by Matt Ragsdale MD 10/29/24 13:12:
Dictation- [id number]
Original Note:
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
-
Discharge Instructions:
Discharge Diagnosis/Procedures Bleeding gastric ulcer
Anemia requiring blood transfusion
Moderate protein calorie malnutrition
Vent dependent respiratory failure
Pneumonia-H influenza
Acute kidney injury
Metabolic acidosis
Vitamin B12 deficiency
Hypertension
History of CVA
Depression
High cholesterol
Chronic pancreatitis on CT
Chronic fracture of T12, severe discogenic
changes L5/S1
Diet As tolerated
Activity As tolerated,With assistance
Driving Restrictions No driving
Other Services VN
Instructions:
Stand-Alone Forms:
Changes to Home Medications: Yes
Discharge Medications:
DC Medications w/original date entered in [employer]
ondansetron 4 mg disintegrating tablet 4 mg PO Q8H PRN nausea 10/22/24
Saccharomyces boulardii 250 mg capsule 250 mg PO BID Supplement #0 caps 10/28/24
alendronate 70 mg tablet (Fosamax) 70 mg PO QWEEK bone #0 tabs 10/28/24
amlodipine 5 mg tablet 5 mg PO DAILY Blood pressure #0 tabs 10/28/24
aspirin 81 mg chewable tablet 81 mg PO DAILY Blood clot prevention/tx #30 tabs 10/28/24
atorvastatin 80 mg tablet 80 mg PO DAILY High cholesterol #0 tabs 10/28/24
cholecalciferol (vitamin D3) 25 mcg (1,000 unit) capsule (Vitamin D3) 25 mcg PO DAILY Supplement #0 caps 10/28/24
clopidogrel 75 mg tablet 75 mg PO DAILY Blood clot prevention/tx #30 tabs 10/28/24
cyanocobalamin (vitamin B-12) 1,000 mcg capsule 1,000 mcg PO DAILY B12 Def #30 caps 10/28/24
ferrous sulfate 325 mg (65 mg iron) tablet (iron) 325 mg PO MOWEFR anemia #0 tabs 10/28/24
metoprolol succinate 100 mg tablet,extended release 24 hr 50 mg (1/2 x 100 mg) PO DAILY Blood pressure #0 tabs 10/28/24
polyethylene glycol 3350 17 gram oral powder packet (Miralax) 17 g PO DAILY Constipation #100 ea 10/28/24
sertraline 25 mg tablet 25 mg PO DAILY Depression #0 tabs 10/28/24
cefuroxime axetil 500 mg tablet 500 mg PO BID Infection #8 tabs 10/29/24
megestrol 20 mg tablet 20 mg PO BID appetite #14 tabs 10/29/24
pantoprazole 40 mg tablet,delayed release (Protonix) 40 mg PO DAILY Gastrointestinal issue #60 tabs 10/29/24
Home Medication Changes
new
cefuroxime axetil 500 mg tablet 500 mg PO BID Infection #8 tabs 10/29/24
megestrol 20 mg tablet 20 mg PO BID appetite #14 tabs 10/29/24
pantoprazole 40 mg tablet,delayed release (Protonix) 40 mg PO DAILY Gastrointestinal issue #60 tabs 10/29/24
polyethylene glycol 3350 17 gram oral powder packet (Miralax) 17 g PO DAILY Constipation #100 ea 10/28/24
Pending Results: No
--- NOTE | 2024-10-29 13:54 | VATNOTE ---
R midline D/C'd per protocol. TCL retrieved was 15 cm. Pressure dressing applied.
[2024-10-29 14:00] VITALS: BP 119/91
--- NOTE | 2024-10-29 14:41 | CM ---
Pt cleared for discharge to home with [facility]. [facility] reviewed with pt's daughter; signed and placed on chart.
Daughter driving pt home via car. W/C transport requested to main lobby.
== END 2024-10-29 15:20 | disposition home health service (06) | DRG 377 ==
LOC: 3 WEST ACU 20:11
PROVIDERS: Internal Medicine; Nurse Practitioner Adult Health; Registered Nurse; ADMITTING PHYSICIAN Internal Medicine; ATTENDING PHYSICIAN Hospitalist; CONSULT PHYSICIAN Internal Medicine Critical Care Medicine; CONSULT PHYSICIAN Internal Medicine Gastroenterology; EMERGENCY PHYSICIAN Student in an Organized Health Care Education/Training Program; FAMILY PHYSICIAN Physician Assistant Medical
PROC: 30233N1 Transfusion of Nonautologous Red Blood Cells into Peripheral Vein, Percutaneous Approach (ICD-10-PCS; 2024-10-23)
PROC: 0W3P8ZZ Control Bleeding in Gastrointestinal Tract, Via Natural or Artificial Opening Endoscopic (ICD-10-PCS; 2024-10-23)
PROC: 3E0G8GC Introduction of Other Therapeutic Substance into Upper GI, Via Natural or Artificial Opening Endoscopic (ICD-10-PCS; 2024-10-23)
PROC: 0D568ZZ Destruction of Stomach, Via Natural or Artificial Opening Endoscopic (ICD-10-PCS; 2024-10-23)
PROC: 0D778ZZ Dilation of Stomach, Pylorus, Via Natural or Artificial Opening Endoscopic (ICD-10-PCS; 2024-10-25)
DX: K25.4 Chronic or unspecified gastric ulcer with hemorrhage (principal); J18.9 Pneumonia, unspecified organism; J96.90 Respiratory failure, unspecified, unspecified whether with hypoxia or hypercapnia; E44.0 Moderate protein-calorie malnutrition; Z99.11 Dependence on respirator [ventilator] status; N17.9 Acute kidney failure, unspecified; E87.20 Acidosis, unspecified; F03.A3 Unspecified dementia, mild, with mood disturbance; K86.1 Other chronic pancreatitis; M84.48XA Pathological fracture, other site, initial encounter for fracture; D62 Acute posthemorrhagic anemia; K31.1 Adult hypertrophic pyloric stenosis; Z68.1 Body mass index [BMI] 19.9 or less, adult; E53.8 Deficiency of other specified B group vitamins; Z86.73 Personal history of transient ischemic attack (TIA), and cerebral infarction without residual deficits; F32.A Depression, unspecified; E78.00 Pure hypercholesterolemia, unspecified; I10 Essential (primary) hypertension; D50.9 Iron deficiency anemia, unspecified; K82.8 Other specified diseases of gallbladder; K59.00 Constipation, unspecified; I73.9 Peripheral vascular disease, unspecified; F17.210 Nicotine dependence, cigarettes, uncomplicated; Z79.82 Long term (current) use of aspirin; Z79.02 Long term (current) use of antithrombotics/antiplatelets; Z79.83 Long term (current) use of bisphosphonates; Z79.899 Other long term (current) drug therapy; Z80.3 Family history of malignant neoplasm of breast; Z82.3 Family history of stroke; Z82.49 Family history of ischemic heart disease and other diseases of the circulatory system; E88.09 Other disorders of plasma-protein metabolism, not elsewhere classified; K21.9 Gastro-esophageal reflux disease without esophagitis; N28.1 Cyst of kidney, acquired
CPT/HCPCS: 36600; 71045; 74018; 74176; 80048; 80053; 80076; 81003; 81015; 82306; 82533; 82607; 82728; 82746; 82805; 83036; 83540; 83550; 83605; 83690; 83735; 84100; 84550; 85014; 85018; 85025; 85027; 86803; 86850; 86900; 86901; 86920; 87040; 87070; 87077; 87086; 87147; 87185; 87186; 87205; 87324; 87449; 87899; 92610; 93005; 94002; 94003; 94640; 94669; 96361; 96374; 97116; 97163; 97167; 97530; 97535; 99285; C1726; J3480; P9016; P9047

== ENCOUNTER 2024-11-03 13:24 | Inpatient (IN) | payer MEDICARE, OTHER, SELFPAY ==
[2024-11-03] VITALS (24 sets, daily range): BP systolic 85–165; BP diastolic 44–125; PULSE 77; BMI 19.6; BMI 17.0
[2024-11-03 11:06] LABS: AST (SGOT) 32 U/L (14-36); Albumin 2.8 g/dl (3.5-5.0); Alkaline Phosphatase 54 U/L (38-126); Blood Urea Nitrogen 41 mg/dl (7-17); Calcium 8.7 mg/dl (8.4-10.2); Carbon Dioxide 6 mmol/L (22-30); Chloride 111 mmol/L (98-107); Estimated Creatinine Clearance 22 ml/min; Glucose 340 mg/dl (70-99); Hematocrit 18.1 % (37.0-47.0); Hemoglobin 5.9 g/dL (12.0-16.0); Mean Corp Hgb Conc. 32.6 g/dL (33.0-37.0); Mean Corpuscular Hgb 28.2 pg (27.0-31.0); Mean Corpuscular Volume 86.6 fL (81.0-99.0); Mean Platelet Volume 10.1 fL (7.4-10.4); Platelet Count 626 10^3/uL (130-400); Potassium 3.7 mmol/L (3.5-5.1); Red Blood Cell Count 2.09 10^6/uL (4.20-5.40); Red Cell Dist. Width 16.6 % (11.5-14.5); Sodium 145 mmol/L (135-145); Total Bilirubin 0.3 mg/dl (0.2-1.3); Total Protein 5.1 g/dl (6.3-8.2); White Blood Cell Count 21.6 10^3/uL (4.8-10.8); eGFR 38.27
[2024-11-03 11:17] LABS: % Basophils 0.2 % (0-2); % Immature Granulocytes 3.3 % (0-0.5); % Lymphocytes 11.9 % (20.5-51.1); % Monocytes 1.1 % (1.7-9.3); % Neutrophils 83.5 % (42.2-75.2); Absolute Basophils 0.1 10^3/uL (0-0.2); Absolute Immature Granulocytes 0.7 10^3/uL (0-0.05); Absolute Lymphocytes 2.6 10^3/uL (1.2-3.4); Absolute Monocytes 0.2 10^3/uL (0.1-0.6); Nucleated Red Blood Cells % 0 %
[2024-11-03 11:22] LABS: ALT (SGPT) 36 U/L (0-35)
[2024-11-03 11:24] LABS: Lactic Acid 17.4 mmol/L (0.7-2.0)
[2024-11-03] MEDS: PROTONIX 100 IV ×2 (11:28→20:18)
[2024-11-03] MEDS: PROTONIX IV 80 MG IV (11:28)
--- NOTE | 2024-11-03 11:57 | ED.GENMED ---
History of Present Illness
General
Chief Complaint: Breathing Problem
Source: patient, records and family
Exam Limitations: dementia
Time Seen by Provider: 11/03/24 10:42
Nursing documentation reviewed up to this point in time: agreed with
History of Present Illness
History of Present Illness:
79-year-old female with past medical history as noted presents to the emergency room with her daughters for evaluation of shortness of breath and GI bleeding. Patient was admitted to this hospital 10/22/2024 until 10/29/2024�she was admitted with
acute GI bleeding and acute anemia requiring blood transfusion. She had EGD 10/23 that showed gastric ulceration as likely source. She returns today due to GI bleeding and shortness of breath�daughter says that this morning when she checked on her
mother, she noted that her mother was 'covered in blood' which daughter describes as dark brown to black 'like coffee grounds.' Patient's daughter escorted her to the bathroom and she had another bloody bowel movement. At that point patient began
to complain of lightheadedness and severe shortness of breath and EMS was called to bring her to the hospital. Daughter does note that patient seems mildly confused and complains of being very cold. Patient complains of feeling nauseated,
abdominal discomfort. Although she feels short of breath denies chest pain. Rest of history limited due to dementia and mild confusion.
Past History
Past History
ED Past Medical History: HTN, Psychiatric (Depression) and Other (Mild dementia)
ED Past Surgical History: Appendectomy
Social History
Tobacco: Former smoker
Living: with family
Employment: Retired
Review of Systems
Review of Systems
Unable to obtain full review of systems at this time due to: dementia
All Other Systems: Not applicable
Phy Exam
Physical Exam
Physical Exam:
General: Awake, alert, somewhat agitated pulling at lines and tubes
Head: Normocephalic, atraumatic
Eyes: Pale conjunctiva
Throat: Airway intact, somewhat dry mucous membranes
Neck: Trachea midline, supple without meningismus
Lungs: Tachypnea but no hypoxia�initially came in on supplemental oxygen which we weaned down; her lungs sound clear to auscultation
Heart: Tachycardia with regular rhythm, no murmurs, gallops, or rubs
Abd: Soft, non distended, mild diffuse tenderness
Rectal: Small amount of dark brown to black stool in the rectal vault which is Hemoccult positive; she does have some erythema and skin breakdown on the buttock
Neuro: No gross deficits
Skin: Pale, cool to the touch
Extremities: Good pulses throughout
Scores
Heart Failure Risk
Heart Failure Risk Score: Not Applicable
Heart Score for Chest Pain Patients
STEMI patient?: Not applicable
Withdrawal Assessment of Alcohol
Withdrawal Assessment Completed?: Not applicable
Sepsis
Sepsis Screening
Sepsis Assessment: Severe Sepsis
Sepsis Screening: Lactate >/=4mmol/L and Hypotension
Sepsis Screen
Sepsis Screen: Severe Sepsis
Date: 11/03/24
Time: 11:34
Course
Orders/Labs/Results
Orders:
Orders
11/03/24 09:35
EKG [Electrocardiogram (*1)] Urgent
Reason for Study: Shortness of Breath
EKG- Treatment ONCE
11/03/24 10:30
Complete Blood Count/With Diff Urgent
Comprehensive Metabolic Panel Urgent
Lactate Level [Lactic Acid] Urgent
11/03/24 10:43
Lactate Level [Lactic Acid] Urgent
CR Chest Portable - 1 View Urgent
Comment:
Reason For Exam: sob
Reason Study Needs to be Portable: Unable to Transport
11/03/24 10:54
Pantoprazole [Protonix IV] 80 mg IV NOW STA
11/03/24 11:09
* Blood Bank Products Urgent
Blood Bank Products: *Packed RBC Leuko(PRBC's)
Quantity: 2
Transfuse Today: Yes
Reason: Anemia
11/03/24 11:15
Pantoprazole 80 mg/100 ml Nss [Protonix] 80 mg in 100 ml IV Q10H
11/03/24 11:23
Type+Screen Urgent
COVID-19 Antigen Urgent
Source: Nasal Swab
NT-proBNP Urgent
TSH Reflex To Free T4 Urgent
Troponin I Urgent
Blood Culture Q30M
NAZANIN Source: Blood/Venous
Specimen Description:
11/03/24 11:29
CT Abd/pelvis Angio W/wo Iv Urgent
Comment:
Reason For Exam: abd pain, GI bleeding
11/03/24 11:32
0.9% Sodium Chloride 1000 ml [Nss] 1,000 ml IV BOLUS
11/03/24 11:34
Piperacillin/Tazo 3.375 Gram [Zosyn] 3.375 gram in 50 ml IV NOW
11/03/24 12:03
Ondansetron Injectable [Zofran] 4 mg IV NOW STA
11/03/24 12:16
Acetone [B-Hydroxybutyrate] Urgent
11/03/24 12:28
Venous Blood Gas Urgent
%Oxygen/Room Air: 99%
Blood Culture Q30M
NAZANIN Source: Blood/Venous
Specimen Description:
11/03/24 12:39
Sodium Bicarbonate 100 meq IV NOW STA
Sodium Bicarbonate 100 meq Sterile Water For Inj [Sterile Water For Injection 500 ml] 400 ml IV ONCE
11/03/24 12:48
Admit/Transfer Patient As Directed
Co-Sign Provider:
Level of Care: Inpatient admission
Assign to:: IMU- Intermediate Care
Physician / Group: massimo yen
Diagnosis: acute blood loss anemia
Reason for Hospitalization: acute blood loss anemia
Expected length of stay greater than two midnights?: Yes
ELOS- Estimated Length of Stay in days: 3
I certify the patient meets the requirements for IP care: Yes
PRN Pain Medication Management As Directed
May give lesser potent ordered pain med per pt: Yes
preference::
Protocol:: Medication orders for pain may be administered in a
manner that supports deferring to patient preference
when the pt is:
- Requesting an ordered lesser potent pain medication.
Least to most potent pain medications are defined
as: acetaminophen < NSAID < tramadol < opioids
(morphine, oxycodone, hydromorphone).
- Requesting a lesser dose of the same medication IF
ORDERED.
- Requesting a less intrusive route of administration
if both routes are prescribed by the provider (PO <
IV).
11/03/24 12:49
Code Status As Directed
Resuscitation Status: Do not resuscitate
Reached after discussion with pt or family/Healthcare POA: Yes
DNR Bracelet Application ONCE
11/03/24 13:00
Sterile Water For Inj [Sterile Water For Injection 1000 ml] 1,000 ml Sodium Bicarbonate 150 meq IV 100 mls/hr
11/03/24 14:30
Lactic Acid Q6H
11/03/24 20:30
Lactic Acid Q6H
11/04/24 02:30
Lactic Acid Q6H
Abnormal Lab Results
11/03/24 11/03/24 11/03/24
10:30 11:23 12:28
WBC 21.6 H 10^3/uL
(4.8-10.8)
RBC 2.09 L 10^6/uL
(4.20-5.40)
Hgb 5.9 L* D g/dL
(12.0-16.0)
Hct 18.1 L* %
(37.0-47.0)
MCHC 32.6 L g/dL
(33.0-37.0)
RDW 16.6 H %
(11.5-14.5)
Plt Count 626 H D 10^3/uL
(130-400)
Abs Immat Gran (auto) 0.7 H 10^3/uL
(0-0.05)
Absolute Neuts (auto) 18.0 H 10^3/uL
(1.4-6.5)
Immature Gran % 3.3 H %
(0-0.5)
Neutrophils % 83.5 H %
(42.2-75.2)
Lymphocytes % 11.9 L %
(20.5-51.1)
Monocytes % 1.1 L %
(1.7-9.3)
VBG pH 7.18 L*
(7.32-7.43)
VBG pCO2 25 L mmHg
(35-48)
VBG pO2 79 H mmHg
(30-50)
VBG HCO3 9.3 L mmol/L
(22-27)
Chloride 111 H mmol/L
(98-107)
Carbon Dioxide 6 L* mmol/L
(22-30)
BUN 41 H mg/dl
(7-17)
Creatinine 1.4 H mg/dL
(0.6-1.0)
Glucose 340 H mg/dl
(70-99)
Lactic Acid 17.4 H* mmol/L
(0.7-2.0)
ALT 36 H U/L
(0-35)
Total Protein 5.1 L g/dl
(6.3-8.2)
Albumin 2.8 L g/dl
(3.5-5.0)
Crossmatch IS Only See Detail
11/03/24 10:30
11/03/24 10:30
Vital Signs
Initial and Last Documented VS:
Initial Vital Signs
Temp Pulse Resp BP Pulse Ox
35.3 C L 113 22 161/55 99
11/03/24 09:21 11/03/24 09:21 11/03/24 09:21 11/03/24 09:21 11/03/24 09:21
Last Documented Vital Signs
Temp Pulse Resp BP Pulse Ox
36.4 C 102 18 151/100 98
11/03/24 14:03 11/03/24 14:13 11/03/24 14:13 11/03/24 14:13 11/03/24 14:13
MDM/Problems Addressed
Differential Diagnosis Includes:
GI bleeding
MDM/Problems Addressed:
79-year-old female with a past medical history as noted in recent admission for GI bleeding presents to the ER for recurrent GI bleeding and shortness of breath. Large volume of blood noted in bed with patient this morning and then she had a second
bowel movement which was also bloody. She had syncopal event. She complains of nausea and abdominal discomfort and severe shortness of breath as well as feeling very cold. She is tachycardic but actually mildly hypertensive. She is tachypneic
but not hypoxic. She is hypothermic. She is pale and cool to the touch. Small amount of stool in the rectal vault is black and Hemoccult positive. Will place large-bore IV send labs including CMP, type and screen. Send thyroid studies. Will
check chest x-ray given dyspnea but suspect her dyspnea is related to anemia. Given hypothermia with tachycardia and tachypnea we will send blood cultures and lactate although lower suspicion for infection. Consent for blood obtained from
daughter. Will reassess after the above.
Labs reviewed: Her CBC shows leukocytosis to 21.6. She has acute anemia with a hemoglobin of 5.9 from discharge value of 9.1. Her CMP shows metabolic acidosis with a bicarb of 6; elevated BUN; she is hyperglycemic with a glucose of 340. Her
lactate is markedly elevated at 17. Suspect that her acidosis is secondary to lactic acidosis rather than DKA. Given these findings we will treat with empiric antibiotics. Sent for CT angio of the abdomen pelvis to evaluate for signs of ischemia
of the intestine as well as brisk bleeding. Transfused 2 units of PRBCs. IV PPI plus infusion. Case discussed with GI for consultation. Case discussed with hospitalist for ICU admission.
Discussed case with banking analyst�recommended 2 amps of bicarb IV push and initiating sodium bicarbonate infusion. Will proceed with NG tube for decompression. I did discuss clinical condition and severity of illness with family at bedside in
conjunction with hospitalist. Family did not want intubation or heroic measures, opted to make patient DNR/DNI but wishes to proceed with medical management at this point.
*Radiology
Radiology exam reviewed: radiology read reviewed
*Pulse Oximetry
SaO2: 99
Oxygen Mode of Delivery: CPAP
Patient hypoxic: no (99%)
*EKG
Interpreted by ED Provider?: Yes
Heart Rate: 110
Rate: tachycardiac
Rhythm: sinus and sinus tachycardia
[place]: normal axis
Interval: normal interval
QRS Pattern: normal QRS
Ischemia: non-specific ST changes
*Critical Care Note
Total Time (30-74mins, 75-104mins- exclusive of procedures): Not Applicable
Data Reviewed
Review of Other/Old Records Reveals: Labs, Records, Testing and Discharge Summary
Source: patient, records and family
Patient Management
Discussion with other providers: Hospitalist (Discussed with hospitalist) and [facility] (Discussed with gastroenterology, discussed with hospitalist)
Escalation/DeEscalation of care consider admission/obs:
Admission indicated
ED Attending Note
-
Portions of this chart may have been created with voice recognition software.� Occasional wrong word or��sound alike� substitutions may have occurred due to the inherent limitations of voice recognition software.
Discharge Plan
Departure
Patient Disposition: Admit
Date of Disposition: 11/03/24
Time of Disposition: 12:16
Admit to doctor: Gabriela
Presentation/result/management discussed w/ accepting MD/DO: Hospitalist
Discharge Problem:
Acute GI bleeding, Acute blood loss anemia, Metabolic acidosis, Hyperglycemia
Interventions
Interventions:
*Risk Screen - Suicide Last Done: 11/03/24 11:12
*General Assessment Last Done: 11/03/24 14:14
*Neglect/Abuse Screening Last Done: 11/03/24 11:12
*ED- Fall Risk Assessment Last Done: 11/03/24 14:14
*ED COVID-19 Vaccine History Last Done: 11/03/24 14:14
[2024-11-03 11:59] LABS: NT-proBNP 2580 pg/ml; Troponin I 0.013 ng/ml
[2024-11-03 12:11] LABS: COVID-19 Antigen Negative (Negative)
--- NOTE | 2024-11-03 12:12 | HPS.HSE ---
Family Physician
-
Family Physician: WALLY ENRIQUEZ PA-C
Chief Complaint
-
bloody stool, sob
History of Present Illness
79-year-old female with past medical history for mild dementia, hypertension, CVA, depression, GERD, PAD on asa and plavix as noted presents to the emergency room with her daughters for evaluation of shortness of breath and GI bleeding. Patient
was admitted to this hospital 10/22/2024 until 10/29/2024. she was admitted with acute GI bleeding and acute anemia requiring blood transfusion. She had EGD 10/23 that showed with blood, oozing ulcer treated with injection, clip, bicap; repeat EGD
10/25 Dr. Steve ulcer no bleeding and gastric stenosis at pylorus which was dilated.
today daughter found her covered in blood. Patient's daughter escorted her to the bathroom and she had another bloody bowel movement which was very dark, coffee ground stool. At that point patient began to complain of lightheadedness and severe
shortness of breath and EMS was called to bring her to the hospital. Patient complains of feeling nauseated, abdominal discomfort. Although she feels short of breath denies chest pain.
Patient received normal saline, Zofran, Protonix, Zosyn in ER. blood culture sent from ER. patient is getting transfused with 2 units of blood.
Medical History
Past Medical History
Past Medical History: Reports Other
Additional Past Medical History:
CVA
MILD dementia
depression
GERD
PAD
Past Surgical History: Reports Other
Additional Past Surgical History:
Appendectomy
Cataract
Social History
Tobacco: Non-smoker
Alcohol: Former
Drug: None
Personal: Single
Living: With Family
Family History
Family History: Not pertinent
Allergies / Home Medications
Allergies reflects when Allergies were last updated in [facility].
Home Medications with original date entered in [facility]
Allergy/Medication List:
Allergies
Allergy/AdvReac Type Severity Reaction Status Date / Time
No Known Allergies Allergy Verified 10/22/24 17:59
Home Medications
ondansetron 4 mg disintegrating tablet 4 mg PO Q8H PRN nausea 10/22/24
Saccharomyces boulardii 250 mg capsule 250 mg PO BID Supplement #0 caps 10/28/24
alendronate 70 mg tablet (Fosamax) 70 mg PO QWEEK bone #0 tabs 10/28/24
amlodipine 5 mg tablet 5 mg PO DAILY Blood pressure #0 tabs 10/28/24
aspirin 81 mg chewable tablet 81 mg PO DAILY Blood clot prevention/tx #30 tabs 10/28/24
atorvastatin 80 mg tablet 80 mg PO DAILY High cholesterol #0 tabs 10/28/24
cholecalciferol (vitamin D3) 25 mcg (1,000 unit) capsule (Vitamin D3) 25 mcg PO DAILY Supplement #0 caps 10/28/24
clopidogrel 75 mg tablet 75 mg PO DAILY Blood clot prevention/tx #30 tabs 10/28/24
cyanocobalamin (vitamin B-12) 1,000 mcg capsule 1,000 mcg PO DAILY B12 Def #30 caps 10/28/24
ferrous sulfate 325 mg (65 mg iron) tablet (iron) 325 mg PO MOWEFR anemia #0 tabs 10/28/24
metoprolol succinate 100 mg tablet,extended release 24 hr 50 mg (1/2 x 100 mg) PO DAILY Blood pressure #0 tabs 10/28/24
polyethylene glycol 3350 17 gram oral powder packet (Miralax) 17 g PO DAILY Constipation #100 ea 10/28/24
sertraline 25 mg tablet 25 mg PO DAILY Depression #0 tabs 10/28/24
cefuroxime axetil 500 mg tablet 500 mg PO BID Infection #8 tabs 10/29/24
megestrol 20 mg tablet 20 mg PO BID appetite #14 tabs 10/29/24
pantoprazole 40 mg tablet,delayed release (Protonix) 40 mg PO DAILY Gastrointestinal issue #60 tabs 10/29/24
Review of Systems
-
Unable to obtain full review of systems at this time due to: Acuity
Abdomen/GI: Reports Bloody Stools and Black Stools
Physical Exam
Vital Signs
Vital Signs
Temp Pulse Resp BP Pulse Ox
95.6 F L 112 22 138/100 99
11/03/24 10:07 11/03/24 10:15 11/03/24 09:21 11/03/24 10:07 11/03/24 12:00
Physical Exam
General: Well Developed, Well Nourished and No Apparent Distress
HEENT: NormoCephalic, Moist mucous membranes and Atraumatic
Respiratory: Clear
Cardiac: S1/S2 and Regular Rhythm; No Murmur or Rub
GI: Soft, Non Tender, Non Distended and Normal Bowel Sounds; No Organomegaly
Rectal: Deferred by Provider
Musculoskeletal: No Clubbing, No Cyanosis and No Edema
Skin: No Rash
Neuro: Nonfocal/grossly intact
Psych: Calm
Laboratory Results
-
11/03/24 10:30
11/03/24 10:30
Laboratory Results
Lactic Acid 17.4 mmol/L (0.7-2.0) H* 11/03/24 10:30
Total Bilirubin 0.3 mg/dl (0.2-1.3) 11/03/24 10:30
AST 32 U/L (14-36) 11/03/24 10:30
ALT 36 U/L (0-35) H 11/03/24 10:30
Alkaline Phosphatase 54 U/L (38-126) 11/03/24 10:30
Troponin I 0.013 ng/ml 11/03/24 11:23
Data Reviewed
-
Lab Data: Labs Reviewed by me
Impression/Plan
-
# Acute blood loss anemia secondary to GI bleed
- Hold dual antiplatelet therapy
- Recent EGD with bleeding ulcer
- Hemoglobin 5.9
- CT angio of the abdomen pelvis pending
- IV PPI continued
- Blood products ordered in ER
- Keep patient n.p.o.
- GI consulted
# Anion gap metabolic lactic acidosis/acute kidney injury likely from blood loss
- CO2 6, creatinine 1.4, lactic 17.4, anion gap 18
-sodium bicarb continued
-BMP in am
# sepsis as evident by Leukocytosis,tachycardia and hypothermia
- WBCs 21.6, temp 95.6, HR elevated
-Zosyn continued
-Tylenol SC for fever
-blood culture sent from ER
# Hypertension
-ctm
# History of CVA
hold ASA and Plavix
# Depression
-on sertraline
# Polycystic kidney disease according to CT
# Hyperlipidemia/atherosclerosis
-hold all oral agents
# Cognitive impairment
# Diverticulosis
# Chronic pancreatitis per CT-patient needs MRI of the pancreas as outpatient
# Chronic fracture of T12 treated with vertebroplasty/grade 1 anterolisthesis L4 on L5/severe discogenic DJD L5-S1
# Smoker-cessation counseling
# DVT prophylaxis-Lovenox
#patient iS DNR. does not want any intervention but needs transfusion, fluids and medication.
# DNR
[2024-11-03 12:19] LABS: TSH Reflex To Free T4 1.03 uIU/ml (0.47-4.68)
[2024-11-03] MEDS: ZOSYN 50 IV ×2 (12:32→20:18)
[2024-11-03] MEDS: NSS 1000 IV (12:32)
[2024-11-03] MEDS: ZOFRAN 4 MG IV (12:32)
[2024-11-03 12:39] LABS: Venous Blood Gas B.E. -17.5 mmol/L (-4 to +4); Venous Blood Gas HCO3 9.3 mmol/L (22-27); Venous Blood Gas pCO2 25 mmHg (35-48); Venous Blood Gas pO2 79 mmHg (30-50)
[2024-11-03 12:40] LABS: Venous Blood Gas O2 Therapy 99%
[2024-11-03 12:41] LABS: Venous Blood Gas pH 7.18 (7.32-7.43)
[2024-11-03] MEDS: SODIUM BICARBONATE 100 MEQ IV (12:48)
--- NOTE | 2024-11-03 12:59 | W.PN.UPDATE ---
Update Note
Progress Note Update
I could not get any information from the patient as critacally ill
Information gathered by chart review and speaking with the ER staff and family .
This note serves as an addendum to the H&P by record keeper ИВАН Louann GOMEZ
HPI
79F recently admitted 10/22 until 10/29 for GI bleeding, VDRF, EGD that showed bleeding ulcer.
She was intubated on last admission
- She is back today with profuse black stool this morning 'like coffee grounds' and feeling very short of breath.
- not had any large-volume stool here or vomiting.
- DAPL resumed after DC
VSS
Cachectic
lethargic and confused and toxic looking
Hypothermic
Tachycardic, normotensive
soft abdomen
Data
Hgb 5.9 from 9.1 on 10/29
HCO3 6 with a lactate of 17
Cr 1.4
LA 17.4
TPNI 0.013 BNP 2580
Pending VBG
CTA AP : report pending
- prelim distended stomach on CT
10/24/2024 CT AP
- endoscopic clips in the lesser curvature of the gastric body and a small ulceration in the lateral curvature of the stomach mild gastric distention with fluid and air no evidence of perforation.
- New large dense left lower lobe airspace consolidation with postobstructive atelectasis secondary to endobronchial obstruction of the left lower lobe bronchus with mucous plugging.
- No endobronchial obstruction with basilar segment right lower lobe.
- Severe calcific atherosclerotic plaque in the thoracic and abdominal aorta.
- Polycystic kidney disease.
- Mild intrahepatic and extrahepatic biliary dilatation.
- Severe gallbladder distention.
- Chronic pancreatitis.
- Severe colonic diverticulosis.
- Small volume ascites.
- Severe discogenic DJD L5-S1. Grade 1 anterolisthesis L4-L5. Chronic fractures T12
S/P Rpt EGD 10/25/24
One non-bleeding superficial gastric ulcer with no stigmata of bleeding was found on the lesser curvature of the gastric body.Bilious gastric fluid,Gastric stenosis at Pylorus dilated.
ASSESSMENT & PLAN
Pending Rx reconciliation
Recurrent profuse UGIB
Severe ABLA
SIRS picture with hypothermic, tachycardic and leucocytosis ;Possible associated sepsis or due to deranged acid base disorder
Profoundly deranged acid base disorder with Hi AG MA @ 28
PRERNA due to sepsis and GIB ; underlying PCK dz
Multifactorial TME with underlying Cognitive dysfunction
Underlying Cachexia with PCM - BMI 19
Hi risk for aspiration
Hi risk for intubation
Patient is critically ill and life threatening state
Above discussed with ER attd , Daughter Zulema
Family acknowledged the prognosis and life threatening state
Daughter endorsed patient prior wishes for DNR
Upon further d/w ER attd, ICU attd attd and Daughter following is consensus plan:
- DNR
- cont conservative medical approach palliative care without heroic effort
- stop DAPL
- hold all anti HTN Meds
- NGT for decompression
- IV NS
- Blood Tx to keep Hgb > 8.5
- Agree with HCO3 gtt
- Agree with PPI gtt
- Empiric IV Zosyn
Consult : ICU, GI
If further deterioration or failed to progress with above approach - family wish for transition to comfort measures only
Known Dxs
Current smoker
gastric ulcer
Anemia requiring blood transfusion
Moderate protein calorie malnutrition
Vent dependent respiratory failure
Pneumonia-H influenza
Acute kidney injury
Metabolic acidosis
Vitamin B12 deficiency
Chronic pancreatitis per CT
PCK dz per CT
Hyperlipidemia/atherosclerosis-continue statin. Restart aspirin plavix at discharge
Cognitive impairment
Diverticulosis
Chronic fracture of T12 treated with vertebroplasty/grade 1 anterolisthesis L4 on L5/severe discogenic DJD L5-S1
DVT prophylaxis- SCD
DNR
ICU
Total Critical Care Time__65___ minutes. I was immediately available to the patient and staff. I personally examined, reviewed labs, diagnostic images/reports, interpretations, treatment plans, discussed patient care with other providers and
family or caregivers (if patient is unable to make decisions), entered orders as appropriate and documented the medical record.
--- NOTE | 2024-11-03 13:22 | CON.GI ---
Addendum entered and electronically signed by Zulema Rodriguez Do, MD 11/03/24 16:15:
I saw and examined the patient.
The PHLEBOTOMY COORDINATOR's note was reviewed and I agree with the note.
Comment: See my updated note dated/timed earlier for further comments.
Original Note:
Consultation
-
Date/Time Consultation Requested: 11/03/24 1245
Date/Time Consultation Performed: 11/03/24 1305
Requesting Provider: Dr. Ochoa
Performing Provider: Dr. Youssef/MANUEL Fletcher
Reason for Consultation: acute GI bleed
Medical History
Chief Complaint / HPI
History of Present Illness:
79yo Frisian speaking female with hx CVA, mild dementia, depression, GERD, PAD with prior arteriogram on chronic ASA and Plavix, thrombocytosis, tobacco abuse, recent 10/22/2024 through 10/29/2024 for acute bleeding gastric ulcer requiring blood
transfusion x 2 units, required intubation during procedure, pneumonia (H. influenzae and MSSA) who recently restarted aspirin and Plavix who presents to the emergency room after her daughter found her covered in coffee-ground emesis and had melena
via rectum. Patient had confusion and a second episode of melena. At that point she was brought to the emergency room for further evaluation. Patient currently has a hemoglobin of 5.9 down from 9.1 on 10/29/2024. Bicarb of 6 with lactate of 17.
The patient was complaining of abdominal discomfort yesterday. The patient is confused at bedside. In soft restraints, not allowing much in the way of evaluation. The daughter does state that the patient expressed that she wants to '
peacefully'. The daughter expresses wish for DNR including no CPR or mechanical ventilation. The patient has CT of the abdomen and pelvis with angio that showed no CT angiographic evidence for active bleeding. There is moderate to severe
distention of the stomach. Slight thickening and increased enhancement of the stomach owen and specially region of the antrum as well as first portion of duodenum. Suggesting gastritis and duodenitis. No evidence for bowel obstruction or free
intraperitoneal air. WBC 21.6, hemoglobin 5.9, hematocrit 18.1, platelets 626, sodium 145, potassium 3.7, CO2 6, BUN 41, creatinine 1.4, glucose 340, calcium 8.7, total bilirubin 0.3, AST 32, ALT 36, alk phos 54, troponin 0.013, proBNP 2580,
albumin 2.8
Past Medical History
Past Medical History: CVA, GERD, Psychiatric (depression, dementia ) and Other (PAD, tobacco abuse, thrombocytosis )
Past Surgical History: Appendectomy and Other (cataracts, arterogram x 3 )
Social History
Tobacco: Smoker (1 cig per day prior 2 PPD )
Alcohol: None
Drug: None
Living: With Family (daughter )
Employment: Retired
Family History
Family History: Other (sister with SAND BLASTER cancer, aunt with breast CA)
Allergies / Home Medications
Allergy/AdvReac Type Severity Reaction Status Date / Time
No Known Allergies Allergy Verified 10/22/24 17:59
�Medication �Instructions �Recorded
ondansetron 4 mg disintegrating 4 mg PO Q8H PRN nausea 10/22/24
tablet
Saccharomyces boulardii 250 mg 250 mg PO BID Supplement #0 caps 10/28/24
capsule
alendronate 70 mg tablet (Fosamax) 70 mg PO QWEEK bone #0 tabs 10/28/24
amlodipine 5 mg tablet 5 mg PO DAILY Blood pressure #0 10/28/24
tabs
aspirin 81 mg chewable tablet 81 mg PO DAILY Blood clot 10/28/24
prevention/tx #30 tabs
atorvastatin 80 mg tablet 80 mg PO DAILY High cholesterol #0 10/28/24
tabs
cholecalciferol (vitamin D3) 25 25 mcg PO DAILY Supplement #0 caps 10/28/24
mcg (1,000 unit) capsule (Vitamin
D3)
clopidogrel 75 mg tablet 75 mg PO DAILY Blood clot 10/28/24
prevention/tx #30 tabs
cyanocobalamin (vitamin B-12) 1,000 mcg PO DAILY B12 Def #30 caps 10/28/24
1,000 mcg capsule
ferrous sulfate 325 mg (65 mg 325 mg PO MOWEFR anemia #0 tabs 10/28/24
iron) tablet (iron)
metoprolol succinate 100 mg 50 mg (1/2 x 100 mg) PO DAILY 10/28/24
tablet,extended release 24 hr Blood pressure #0 tabs
polyethylene glycol 3350 17 gram 17 g PO DAILY Constipation #100 ea 10/28/24
oral powder packet (Miralax)
sertraline 25 mg tablet 25 mg PO DAILY Depression #0 tabs 10/28/24
cefuroxime axetil 500 mg tablet 500 mg PO BID Infection #8 tabs 10/29/24
megestrol 20 mg tablet 20 mg PO BID appetite #14 tabs 10/29/24
pantoprazole 40 mg tablet,delayed 40 mg PO DAILY Gastrointestinal 10/29/24
release (Protonix) issue #60 tabs
Review of Systems
-
Unable to obtain full review of systems at this time due to: Dementia
Vital Signs
Temp Pulse Resp BP Pulse Ox
96 F L 111 25 156/104 98
11/03/24 12:34 11/03/24 12:34 11/03/24 12:34 11/03/24 12:34 11/03/24 12:34
Physical Exam
Exam
General: Other (Appears unwell)
HEENT: Anicteric
Respiratory: Clear (anterior)
Cardiac: Regular Rhythm
GI: Soft, Non Distended, Normal Bowel Sounds and Tender
Rectal: Hem Positive
Skin: Warm and Dry
Neuro: Awake
Psych: Confused
Results
WBC 21.6 10^3/uL (4.8-10.8) H 11/03/24 10:30
Hgb 5.9 g/dL (12.0-16.0) L* D 11/03/24 10:30
Hct 18.1 % (37.0-47.0) L* 11/03/24 10:30
MCV 86.6 fL (81.0-99.0) 11/03/24 10:30
Plt Count 626 10^3/uL (130-400) H D 11/03/24 10:30
Absolute Neuts (auto) 18.0 10^3/uL (1.4-6.5) H 11/03/24 10:30
Sodium 145 mmol/L (135-145) 11/03/24 10:30
Potassium 3.7 mmol/L (3.5-5.1) 11/03/24 10:30
Chloride 111 mmol/L (98-107) H 11/03/24 10:30
Carbon Dioxide 6 mmol/L (22-30) L* 11/03/24 10:30
BUN 41 mg/dl (7-17) H 11/03/24 10:30
Creatinine 1.4 mg/dL (0.6-1.0) H 11/03/24 10:30
Calcium 8.7 mg/dl (8.4-10.2) 11/03/24 10:30
Total Bilirubin 0.3 mg/dl (0.2-1.3) 11/03/24 10:30
AST 32 U/L (14-36) 11/03/24 10:30
ALT 36 U/L (0-35) H 11/03/24 10:30
Alkaline Phosphatase 54 U/L (38-126) 11/03/24 10:30
Diagnostic Image Results:
CT Abs/Pelvis with Angio:
IMPRESSION: There is no CT angiographic evidence for active GI bleeding.
Interval improvement in dense atelectasis of the left lower lobe. Small nodular opacities within the visualized left lower lung, suggesting nodular pneumonitis. There is a 7 mm round cavitary nodule in the left lower lobe, nonspecific, statistically
most likely a small infectious cavitary nodule.
Moderate to severe distention of the stomach. Suggestion of slight thickening and increased enhancement of the stomach owen especially in the region of the antrum, as well as involving the first portion of the duodenum. Findings would suggest
gastritis and duodenitis.
No evidence for bowel obstruction or free intraperitoneal air.
Diffuse atherosclerotic disease. Short segment of chronic dissection in the distal abdominal aorta.
Right femoral artery stent is present, beginning near its origin. No evidence for luminal contrast opacification within this stent, suggestive of occlusion.
Prior GI Procedures:
EGD: 10/25/24 - No gross lesions in the entire esophagus.
- Z-line regular, 38 cm from the incisors.
- Non-bleeding gastric ulcer with no stigmata of
bleeding.
- Gastric ulcer.
- Bilious gastric fluid.
- Gastric stenosis was found at the pylorus. Dilated.
- Normal examined duodenum.
- No specimens collected.
EGD 10/23/2024 - No gross lesions in the entire esophagus.
- Red blood in the entire stomach. Fluid aspiration
performed.
- Non-obstructing oozing gastric ulcer with pigmented
material. Injected. Clips were placed.
Colonoscopy: none
Assessment / Plan
-
79yo Frisian speaking female with hx CVA, mild dementia, depression, GERD, PAD with prior arteriogram on chronic ASA and Plavix, thrombocytosis, tobacco abuse, recent 10/22/2024 through 10/29/2024 for acute bleeding gastric ulcer requiring blood
transfusion x 2 units, required intubation during procedure, pneumonia (H. influenzae and MSSA) who recently restarted aspirin and Plavix who presents to the emergency room after her daughter found her covered in coffee-ground emesis and had melena
via rectum. Patient had confusion and a second episode of melena. At that point she was brought to the emergency room for further evaluation. Patient currently has a hemoglobin of 5.9 down from 9.1 on 10/29/2024. Bicarb of 6 with lactate of 17.
The patient was complaining of abdominal discomfort yesterday. The patient is confused at bedside. In soft restraints, not allowing much in the way of evaluation. The daughter does state that the patient expressed that she wants to '
peacefully'. The daughter expresses wish for DNR including no CPR or mechanical ventilation. Discussed that in order to have EGD would require intubation. Patient's wishes and family wishes are not to procede with any NGT or endoscopic measures.
Discussed with Medicine Attending.
Impression:
GI Bleed with acute blood loss anemia
-No GI intervention planned. Family wishes comfort measures.
-Discussed with ER and Medicine Attending.
-
-
Thank you for consultation and allowing me to participate in the patient's care. Please call the manager continuous improvement GI physician during the after hours with any questions or concerns.
[2024-11-03] MEDS: SODIUM BICARBONATE 1150 MEQ IV ×2 (13:26→20:17)
--- NOTE | 2024-11-03 14:15 | W.PN.UPDATE ---
Update Note
Progress Note Update
Full consult note to follow
I saw the patient and examined independent of PHOTOGRAPHIC INTELLIGENCE OFFICER.
Ms Jimenes is a 79yo W with complex medical history with CVA, dementia and PAD on ASA/Plavix who was brought in by daughter for SOB and found covered in 'dark blood.' She had recent hospitalization in 10/22-10/29 for UGI found ot have PUD. She is
also acidotic and found to have Hbg 5.8. She lives with daughter and told her daughter yesterday to let me ' in peace.' She had been immobile and declining at home.
I discussed risk of EGD and given her acidemia/respiratory issues would require intubation for air way protect. Her 2 daughters bedside who are POA would prefer comfort measures. This was also witnessed by bedside RN. They agree that she would
not want NGT decompression, intubation or CPR. Their goal for mom is to be comfortable and listening to her wishes. They desire belly roller and hospice. Ok to use ativan or morphine PRN discomfort. They are ok with blood transfusion and protonix
gtt.
At this juncture GI will sign off please call for ?. Hospitalist RN and ED team updated as well.
--- NOTE | 2024-11-03 14:45 | W.PN.UPDATE ---
Addendum entered and electronically signed by Will Ochoa MD 11/04/24 09:08:
correction of Typo
NGT <del>BGT</del>
Original Note:
Update Note
Progress Note Update
GI consult reviewed :
Case dw family again
- will not attempt BGT
- PRN IV Morphine . PRN IV Ativan
- cont. Blood Tx
- Joy service
- Hospice care consult
- DNR
- IMU in plae of ICU
[2024-11-03] MEDS: MORPHINE SULFATE 1 MG IV (16:13)
[2024-11-03] MEDS: ATIVAN 1 MG IV (17:33)
[2024-11-03 17:42] LABS: Lactic Acid 2.5 mmol/L (0.7-2.0)
--- NOTE | 2024-11-03 21:01 | PTCARENOTE ---
Pt brought to IMU from ED with unit of PRBC hanging and completed. Pt appears to have tolerated well, vitals submitted in TAR. Pt [place]er speaking with mild baseline confusion. Daughter who Pt lives with at bed side. Pt family still considering
hospice, Daughter does not want Pt stuck for labs at this time. More family coming in to discuss goals of care.
--- NOTE | 2024-11-03 23:45 | PTCARENOTE ---
Pt has 2 daughters and son bed side. Family refusing labs and goal is comfort for Pt. Family ok with fluids and abx for the night. Family will talk again in morning and with Dr about options of hospice care. Night MENTAL HEALTH UNIT LEAD PSYCHOLOGIST made aware of refusals and
potential for hospice.
[2024-11-04] VITALS (10 sets, daily range): BP systolic 115–156; BP diastolic 43–64; BMI 17.0
[2024-11-04] MEDS: ZOSYN 50 IV ×4 (01:12→20:14)
[2024-11-04] MEDS: MORPHINE SULFATE 1 MG IV ×3 (01:12→15:51)
[2024-11-04] MEDS: ATIVAN 1 MG SL ×2 (01:31→20:02)
[2024-11-04] MEDS: PROTONIX 100 IV ×2 (05:23→15:51)
[2024-11-04 05:57] LABS: Hematocrit 22.2 % (37.0-47.0); Mean Corpuscular Hgb 29.1 pg (27.0-31.0); Mean Corpuscular Volume 80.7 fL (81.0-99.0); Mean Platelet Volume 10.1 fL (7.4-10.4); Platelet Count 401 10^3/uL (130-400); Red Blood Cell Count 2.75 10^6/uL (4.20-5.40); Red Cell Dist. Width 14.5 % (11.5-14.5); White Blood Cell Count 22.5 10^3/uL (4.8-10.8)
[2024-11-04 06:01] LABS: Blood Urea Nitrogen 45 mg/dl (7-17); Calcium 7.3 mg/dl (8.4-10.2); Carbon Dioxide 29 mmol/L (22-30); Chloride 115 mmol/L (98-107); Estimated Creatinine Clearance 25 ml/min; Glucose 112 mg/dl (70-99); Potassium 2.4 mmol/L (3.5-5.1); Sodium 150 mmol/L (135-145); eGFR 51.11
--- NOTE | 2024-11-04 06:05 | PTCARENOTE ---
Morning labs resulting with K of 2.4. Night QUALITY ASSURANCE GROUP LEADER made aware.
[2024-11-04] MEDS: KCL 270 MEQ IV ×2 (07:02→22:49)
--- NOTE | 2024-11-04 08:35 | VNURNOTE ---
Chart reviewed. Patient is current with [facility]. Will continue to follow hospital course and DC plans.
--- NOTE | 2024-11-04 08:37 | PTCARENOTE ---
Patient received from hotel night auditor. Patient resting comfortably in bed. AAO mostly to self, VSS. Family at bedside to help translate and care for patient. IV fluids and Protonix gtt running. K-rider and ABX running. No testing scheduled at this
time. Call maria in reach.
--- NOTE | 2024-11-04 09:05 | W.PN.HOSP.TC ---
Today's Communication/Plan
-
Continue Protonix
IV fluids to be changed to D5W
Repeat BMP this afternoon
Replace potassium, another 20 mEq
Check magnesium level
Clears
Family will let me know if they want to discuss with hospice
Assessment / Plan
Assessment / Plan
79-year-old female was here recently with GI bleed had 2 endoscopies showed peptic ulcer disease. She was discharged when hemoglobin was stable. Patient came back with more bleeding. Daughter found her with black stools and more bleeding when she
took her to the bathroom. Patient was also complaining of dizziness. Hemoglobin was low in the ER. Patient was seen by GI and patient and family declined EGD as she does not ever want to go back on a ventilator. This could not be guaranteed with
the EGD. Daughter at bedside.
Chest x-ray-no acute changes
CT angiography-interval improvement in dense atelectasis of the left lower lobe. Small nodular opacities within the visualized left lung suggesting nodular pneumonitis. 7 mm round cavitary nodule in the left lower lobe nonspecific likely a small
infectious cavity nodule. Moderate to severe distention of the stomach suggesting of slight thickening and increased enhancement of the stomach owen especially in the region of the antrum as well as involving the first portion of the duodenum
suggesting gastritis and duodenitis. No evidence of bowel obstruction or free intraperitoneal air. Diffuse atherosclerotic disease. Short segment chronic dissection in the distal abdominal aorta. Right femoral artery stent present beginning near
its origin. No evidence of luminal contrast opacification of the stent suggestive of occlusion
Patient is awake and alert
Daughter translating
Has mild abdominal pain
Cardiovascular system S1-S2 appreciated
Abdomen mild epigastric discomfort
Chest few rales bilaterally
No pedal edema
# Acute blood loss anemia secondary to acute GI bleed
Hold dual antiplatelets
Continue Protonix drip
Clears for comfort
# Anion gap metabolic acidosis-lactic acidosis secondary to severe anemia.. I do not think this is secondary to sepsis
# Hypernatremia-D5W ordered
# Aspiration pneumonia/pneumonitis-continue Zosyn
# Acute kidney injury secondary to poor p.o. intake and acute blood loss-continue IV fluids
# Hypertension by history
# History of CVA-hold aspirin and Plavix. Discussed with patient's daughter that we will not restart Plavix
# Depression-continue sertraline
# Polycystic kidney disease according to CT
# Hyperlipidemia/atherosclerosis
# Cognitive impairment
# Diverticulosis
# Chronic pancreatitis per CT
# Peripheral artery disease with right femoral artery stent
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
# Chronic fracture of T12 treated with vertebroplasty/grade 1 anterolisthesis L4 on L5/severe discogenic DJD L5-S1
# H/O Smoking
# DVT prophylaxis- SCDs
# DNR
Plan
Patient and family absolutely sure that they do not want an endoscopy. Discussed about holding aspirin and Plavix and do conservative treatment versus hospice care if she qualifies. Family wants to think about it and let me know if they would want
hospice. In the interim I will continue with conservative measures including antibiotics, fluids, Protonix drip. Clear liquid diet. Family is okay with blood transfusion if needed.
Discussed with daughter at bedside
Discussed with nursing
Time spent over 50 minutes
Part of this note was created using voice recognition system. Occasional wrong word or��sound alike� substitutions may have inadvertently occurred due to the inherent limitations of voice recognition software. If noted kindly bring it to my
attention for correction.
Anticipated Discharge: > 48 hours
Subjective/Interval History
-
Date of Service: November 04, 2024
Objective Data
-
Labs:
Laboratory Results
11/03/24 11/04/24
21:05 05:20
WBC 22.5 H
Hgb Cancelled 8.0 L D
Hct Cancelled 22.2 L
Plt Count 401 H D
Sodium 150 H
Potassium 2.4 L* D
Chloride 115 H
Carbon Dioxide 29
BUN 45 H
Creatinine 1.1 H
Glucose 112 H
Calcium 7.3 L
Vital Signs:
Vital Signs
Temp Pulse Resp BP Pulse Ox
100 F 65 18 119/43 93
11/04/24 07:07 11/04/24 06:00 11/04/24 06:00 11/04/24 06:00 11/04/24 06:00
I&O
11/03/24 11/04/24 11/05/24
06:59 06:59 06:59
Intake Total 1568 / 1568
Balance 1568 / 1568
--- NOTE | 2024-11-04 09:39 | VATNOTE ---
During routine PIV assessment, IV site in pt's L forearm was noted to be swollen, after assessment, this RN determined IV was infiltrated. Infusions were immediately stopped. PIV removed, and heat applied to infiltration site. New PIV established,
see worklist documentation.
[2024-11-04] MEDS: KCL 160 MEQ IV (11:04)
[2024-11-04] MEDS: D5W 1000 IV (11:06)
[2024-11-04 11:22] LABS: Magnesium 1.4 mg/dl (1.6-2.3)
[2024-11-04] MEDS: SODIUM BICARBONATE IV (12:19)
--- NOTE | 2024-11-04 12:56 | HOSPNOTE ---
Family in agreement with hospice. The plan is home tomorrow, equipment was ordered and will be delivered in the am. Transport will be scheduled for 12noon. Attending and CM aware of plan. OOH DNR needed on chart.
--- NOTE | 2024-11-04 15:46 | CM ---
French speaking patient with Dx Acute blood loss anemia secondary to acute GI bleed, Aspiration pneumonia/pneumonitis. Room air. Clear liquids. Receiving IVF, IV Abx. Per nurse; drowsy, forgetful.
Met with patient, daughters Zulema & Jonelle;
patient remained sleeping throughout assessment.
Per Zulema, the patient resides with her, son in law and grand-daughter in a 3 story house, with first floor setup.
The patient has been assisted with ADLs and was independent in ambulation using her rollator.
DME - rollator, w/c
VN - prior [facility]
SNF - none
PCP - Matty Corona
Pharmacy - [facility]
Daughter agrees to d/c tomorrow with Hospice at noon by ambulance. IMM completed.
Request for ambulance at noon tomorrow to [facility].
OOH DNR signed by on chart.
Plan home tomorrow by ambulance with Hospice.
[2024-11-04 17:16] LABS: Blood Urea Nitrogen 33 mg/dl (7-17); Calcium 6.8 mg/dl (8.4-10.2); Carbon Dioxide 29 mmol/L (22-30); Chloride 114 mmol/L (98-107); Estimated Creatinine Clearance 28 ml/min; Glucose 106 mg/dl (70-99); Potassium 2.9 mmol/L (3.5-5.1); Sodium 145 mmol/L (135-145); eGFR 57.31
[2024-11-04] MEDS: CALCIUM GLUCONATE 100 IV (20:52)
[2024-11-04] MEDS: MAGNESIUM SULFATE 100 IV (21:44)
--- NOTE | 2024-11-05 01:13 | PTCARENOTE ---
Assumed care for patient overnight. Pt drowsy and confused at times. MANUEL Fairchild ordered repletion of Mag, K, and Ca. IVF cont. IV abx cont. Pt had one BM with melena. Son at the bedside. Daughter staying overnight. Plan is home hospice.
[2024-11-05] MEDS: D5W 1000 IV (01:54)
[2024-11-05] MEDS: PROTONIX 100 IV (02:56)
[2024-11-05] MEDS: ZOSYN 50 IV ×2 (02:56→08:53)
[2024-11-05 05:48] LABS: Hematocrit 22.5 % (37.0-47.0); Mean Corp Hgb Conc. 35.6 g/dL (33.0-37.0); Mean Corpuscular Hgb 29.6 pg (27.0-31.0); Mean Corpuscular Volume 83.3 fL (81.0-99.0); Mean Platelet Volume 9.9 fL (7.4-10.4); Platelet Count 428 10^3/uL (130-400); Red Cell Dist. Width 15.4 % (11.5-14.5); White Blood Cell Count 17.2 10^3/uL (4.8-10.8)
[2024-11-05 06:19] LABS: Blood Urea Nitrogen 19 mg/dl (7-17); Calcium 7.2 mg/dl (8.4-10.2); Carbon Dioxide 28 mmol/L (22-30); Chloride 113 mmol/L (98-107); Estimated Creatinine Clearance 28 ml/min; Glucose 104 mg/dl (70-99); Magnesium 1.8 mg/dl (1.6-2.3); Potassium 3.6 mmol/L (3.5-5.1); Sodium 143 mmol/L (135-145); eGFR 57.31
--- NOTE | 2024-11-05 08:40 | PTCARENOTE ---
Patient received from sole layer. Patient resting comfortably in bed. Continues to be AAO mostly to self, VSS. Family at bedside to help translate and care for patient. IV fluids and Protonix gtt continuing. Continue ABX. Plan is home hospice
today. Call maria in reach.
[2024-11-05] MEDS: KCL 40 MEQ PO (08:53)
--- NOTE | 2024-11-05 09:05 | W.PN.HOSP.TC ---
Today's Communication/Plan
-
Arrangements made for home hospice as above for patient to return home today. Patient and family do not want further testing on her. Discussed about holding antiplatelets at discharge. I will also discontinue atorvastatin.
Assessment / Plan
Assessment / Plan
79-year-old female was here recently with GI bleed had 2 endoscopies showed peptic ulcer disease. She was discharged when hemoglobin was stable. Patient came back with more bleeding. Daughter found her with black stools and more bleeding when she
took her to the bathroom. Patient was also complaining of dizziness. Hemoglobin was low in the ER. Patient was seen by GI and patient and family declined EGD as she does not ever want to go back on a ventilator. This could not be guaranteed with
the EGD. Daughter at bedside.
Chest x-ray-no acute changes
CT angiography-interval improvement in dense atelectasis of the left lower lobe. Small nodular opacities within the visualized left lung suggesting nodular pneumonitis. 7 mm round cavitary nodule in the left lower lobe nonspecific likely a small
infectious cavity nodule. Moderate to severe distention of the stomach suggesting of slight thickening and increased enhancement of the stomach owen especially in the region of the antrum as well as involving the first portion of the duodenum
suggesting gastritis and duodenitis. No evidence of bowel obstruction or free intraperitoneal air. Diffuse atherosclerotic disease. Short segment chronic dissection in the distal abdominal aorta. Right femoral artery stent present beginning near
its origin. No evidence of luminal contrast opacification of the stent suggestive of occlusion
Patient is awake and alert
Daughter translating
No abdominal pain
Cardiovascular system S1-S2 appreciated
Abdomen mild epigastric discomfort
Chest few rales bilaterally
No pedal edema
# Acute blood loss anemia secondary to acute GI bleed
Hold dual antiplatelets
Continue Protonix PO for discharge
diet as tolerated once on Hospice
# Anion gap metabolic acidosis-lactic acidosis secondary to severe anemia.. I do not think this is secondary to sepsis
# Hypernatremia-D5W ordered
# Aspiration pneumonia/pneumonitis-change to Augmentin
# Acute kidney injury secondary to poor p.o. intake and acute blood loss-continue IV fluids
# Hypertension by history
# History of CVA-hold aspirin and Plavix. Discussed with patient's daughter that we will not restart Plavix
# Depression-continue sertraline
# Polycystic kidney disease according to CT
# Hyperlipidemia/atherosclerosis
# Cognitive impairment
# Diverticulosis
# Chronic pancreatitis per CT
# Peripheral artery disease with right femoral artery stent
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
# Chronic fracture of T12 treated with vertebroplasty/grade 1 anterolisthesis L4 on L5/severe discogenic DJD L5-S1
# H/O Smoking
# DVT prophylaxis- SCDs
# DNR
Patient's family requested hospice. Hospice evaluated the patient and patient was accepted to hospice. Hospice diagnosis is for GI hemorrhage, gastric ulcer and protein calorie malnutrition, poor p.o. intake per patient preference.
Discussed with hospice
Discussed with son and daughter at bedside
Discussed with nursing
More than 30 minutes spent in discharge including
Final examination of the patient
Summarizing hospital stay
Instructions for continuing care to all relevant caregivers
Preparation of discharge records, prescriptions, and referral forms
Total time spent (in minutes): 36 minutes
Part of this note was created using voice recognition system. Occasional wrong word or��sound alike� substitutions may have inadvertently occurred due to the inherent limitations of voice recognition software. If noted kindly bring it to my
attention for correction.
Anticipated Discharge: Today
Subjective/Interval History
-
Date of Service: November 05, 2024
Objective Data
-
Labs:
Laboratory Results
11/05/24
05:41
WBC 17.2 H
Hgb 8.0 L
Hct 22.5 L
Plt Count 428 H
Sodium 143
Potassium 3.6
Chloride 113 H
Carbon Dioxide 28
BUN 19 H
Creatinine 1.0
Glucose 104 H
Calcium 7.2 L
Vital Signs:
Vital Signs
Temp Pulse Resp BP Pulse Ox
99.8 F 64 17 146/64 93
11/04/24 23:12 11/04/24 23:12 11/04/24 23:12 11/04/24 23:12 11/05/24 01:10
I&O
11/04/24 11/05/24 11/06/24
06:59 06:59 06:59
Intake Total 1568 / 1568 1770 / 1770
Balance 1568 / 1568 1770 / 1770
--- NOTE | 2024-11-05 09:14 | W.DS.TRANS ---
Addendum entered and electronically signed by Matt Ragsdale MD 11/05/24 10:03:
Dictation- [id number]
Original Note:
DC Summary - [employer]
-
Discharge Instructions:
Discharge Diagnosis/Procedures Acute blood loss anemia secondary to GI bleed
Aspiration pneumonia
Hyponatremia
Acute kidney injury
Hypertension
History of CVA
Depression
Hyperlipidemia
Coagulant impairment
Diverticulosis
Diet As tolerated
Activity With assistance,As tolerated
Driving Restrictions No driving
Other Services Hospice
Instructions:
Stand-Alone Forms:
Changes to Home Medications: Yes
Discharge Medications:
DC Medications w/original date entered in [employer]
ondansetron 4 mg disintegrating tablet 4 mg PO Q8HPRN PRN nausea 10/22/24
Saccharomyces boulardii 250 mg capsule 250 mg PO BID Supplement #0 caps 10/28/24
amlodipine 5 mg tablet 5 mg PO DAILY Blood pressure #0 tabs 10/28/24
cholecalciferol (vitamin D3) 25 mcg (1,000 unit) capsule (Vitamin D3) 25 mcg PO DAILY Supplement #0 caps 10/28/24
metoprolol succinate 100 mg tablet,extended release 24 hr 50 mg (1/2 x 100 mg) PO DAILY Blood pressure #0 tabs 10/28/24
sertraline 25 mg tablet 25 mg PO DAILY Depression #0 tabs 10/28/24
megestrol 20 mg tablet 20 mg PO BID appetite #14 tabs 10/29/24
polyethylene glycol 3350 17 gram oral powder packet (Miralax) 17 g PO DAILYPRN PRN constipation 11/03/24
amoxicillin 875 mg-potassium clavulanate 125 mg tablet 1 tab PO Q12H Lung/breathing issues #7 tabs 11/05/24
oxycodone 5 mg tablet 5 mg PO Q6H PRN pain #20 tabs 11/05/24
pantoprazole 40 mg tablet,delayed release (Protonix) 40 mg PO BID Gastrointestinal issue #60 tabs 11/05/24
sennosides 8.6 mg tablet (senna) 8.6 mg PO HS PRN Constipation #30 tabs 11/05/24
Home Medication Changes
Aspirin, Plavix, atorvastatin, Fosamax discontinued
Oxycodone and amoxicillin are new
Pending Results: No
--- NOTE | 2024-11-05 12:24 | PTCARENOTE ---
Patient discharged home to home hospice via ambulance. Daughter at bedside. Discharge instructions reviewed and questions answered. Patient left with all known belongings.
--- NOTE | 2024-11-06 09:27 | CM ---
Late Entry for 11/05/24:
Thai speaking patient with Dx Acute blood loss anemia secondary to acute GI bleed, Aspiration pneumonia/pneumonitis. Room air. Receiving IV MS prn.
Spoke with patient's daughter Zulema who was ready for discharge today. Daughter had concerns about caregiver support for patient while she was at work during the day. Provided info for [facility] for request for caregiver
support as her sister is not agreeing to help at all---->message sent to Meryl requesting if [facility] can be scheduled ---response: Yes we will schedule an aide to assist I will try for 2x a week, our social service worker is working on trying to get
[facility] assistance. Patient also had questions about DME - Meryl will speak with her about that.
Plan home today by ambulance at noon with Hospice.
== END 2024-11-05 12:42 | disposition hospice, home (50) | DRG 377 ==
LOC: IMU 13:24
PROVIDERS: Registered Nurse; ADMITTING PHYSICIAN Internal Medicine; ATTENDING PHYSICIAN Hospitalist; CONSULT PHYSICIAN Internal Medicine Gastroenterology; EMERGENCY PHYSICIAN Emergency Medicine; FAMILY PHYSICIAN Physician Assistant Medical
PROC: 30233N1 Transfusion of Nonautologous Red Blood Cells into Peripheral Vein, Percutaneous Approach (ICD-10-PCS; 2024-11-03)
PROC: 5A09357 Assistance with Respiratory Ventilation, Less than 24 Consecutive Hours, Continuous Positive Airway Pressure (ICD-10-PCS; 2024-11-03)
DX: K92.2 Gastrointestinal hemorrhage, unspecified (principal); G92.8 Other toxic encephalopathy; J18.9 Pneumonia, unspecified organism; J69.0 Pneumonitis due to inhalation of food and vomit; J96.90 Respiratory failure, unspecified, unspecified whether with hypoxia or hypercapnia; D62 Acute posthemorrhagic anemia; N17.9 Acute kidney failure, unspecified; E87.20 Acidosis, unspecified; K86.1 Other chronic pancreatitis; E44.0 Moderate protein-calorie malnutrition; E87.1 Hypo-osmolality and hyponatremia; R64 Cachexia; Q61.3 Polycystic kidney, unspecified; Z68.1 Body mass index [BMI] 19.9 or less, adult; Z99.11 Dependence on respirator [ventilator] status; E87.0 Hyperosmolality and hypernatremia; R65.10 Systemic inflammatory response syndrome (SIRS) of non-infectious origin without acute organ dysfunction; I10 Essential (primary) hypertension; D72.829 Elevated white blood cell count, unspecified; F32.A Depression, unspecified; F03.A0 Unspecified dementia, mild, without behavioral disturbance, psychotic disturbance, mood disturbance, and anxiety; F17.210 Nicotine dependence, cigarettes, uncomplicated; E78.5 Hyperlipidemia, unspecified; Z66 Do not resuscitate; R41.89 Other symptoms and signs involving cognitive functions and awareness; I73.9 Peripheral vascular disease, unspecified; M43.16 Spondylolisthesis, lumbar region; Z11.52 Encounter for screening for COVID-19; Z51.5 Encounter for palliative care; Z79.02 Long term (current) use of antithrombotics/antiplatelets; Z79.82 Long term (current) use of aspirin; Z86.73 Personal history of transient ischemic attack (TIA), and cerebral infarction without residual deficits; Z79.899 Other long term (current) drug therapy
CPT/HCPCS: 36430; 71045; 74174; 80048; 80053; 82010; 82805; 83605; 83735; 83880; 84443; 84484; 85025; 85027; 86850; 86900; 86901; 86920; 87040; 87811; 93005; 94660; 96365; 96366; 96367; 96375; 99285; 99406; P9016; Q9967